=== PATIENT | female | born 1955 | race Caucasian/White ===

== ENCOUNTER 2017-04-18 12:46 | Inpatient (IN) | payer SELFPAY ==
[2017-04-18] MEDS ORDERED: Albuterol Sulfate 2.5 mg/0.5 ml Neb ONE ×2 (13:21)
[2017-04-18] MEDS ORDERED: Ipratropium Bromide 2.5 ml Neb ONE (13:21)
[2017-04-18 13:23] LABS: #Eosinphils 0.1 thou/uL (0.0-0.7); #Lymphocytes 1.2 thou/uL (1.20-3.40); #Monocytes 0.6 thou/uL (0.11-0.59); #Neutrophils 4.8 thou/uL (1.40-6.50); %Basophils 0.4 % (0.0-1.0); %Eosinophils 1.2 % (0.0-10.0); %Lymphocytes 18.5 % (21.0-51.0); Hematocrit 42.6 % (36.0-47.0); Red Blood Cell (RBC) Count 4.73 mill/uL (4.20-5.40); White Blood Cell (WBC) Count 6.7 thou/uL (4.8-10.8)
[2017-04-18 13:42] LABS: Lactic Acid - Sepsis 0.9 mmol/L (0.5-2.2)
[2017-04-18 13:46] LABS: ALT (SGPT) 24 U/L (8-55); AST (SGOT) 34 U/L (5-34); Alkaline Phosphatase 78 U/L (40-150); Anion Gap 18 mmol/L (10-20); BUN (Urea Nitrogen) 6 mg/dL (9.8-20.1); Bilirubin, Total 0.7 mg/dL (0.2-1.2); CK (CPK) 127 U/L (29-168); Calc. Creatinine Clearance 0 mL/min (70-130); Calcium 9.8 mg/dL (7.8-10.44); Carbon Dioxide 24 mmol/L (22-29); Chloride 92 mmol/L (98-107); Estimated GFR-MDRD 80; Globulin 3.2 g/dL (2.4-3.5); Protein, Total 7.8 g/dL (6.0-8.3)
[2017-04-18 13:51] LABS: Troponin I Less than 0.010 ng/mL (< 0.028)
[2017-04-18] MEDS ORDERED: Acetaminophen 500 MG TAB ONE ×2 (14:09)
--- NOTE | 2017-04-18 14:09 | CT ---
CT ABDOMEN AND PELVIS WITHOUT IV CONTRAST: HISTORY: Right flank pain. Shortness of breath and chest pain. The technologist also gives a history of lef t flank pain. TECHNIQUE: Multiple axial tomograms obtained through the abdomen and pelvis without IV enhancement. FINDINGS: The lung bases appear clear. The liver and spleen are unremarkable. Granulomatous calcifications are seen in the spleen. The pa ncreas appears unremarkable. The adrenal glands are normal. The kidneys show no evidence of hydronephrosis. No evidence of urinary calculus or obstruction. Th e urinary bladder is mildly distended and appears unremarkable. Small bowel loops appear or normal caliber. The appendix is not identified. There is stool in the right colon and transverse colon. The left colon is nondistended and not well evaluated. The aorta is of normal caliber. No evidence of adenopathy. Images through the pelvis show evidence of a hysterectomy. IMPRESSION: No evidence of acute process identified. POS: [facility]
[2017-04-18 14:17] LABS: Bilirubin Negative (Negative); Blood, Urine Negative (Negative); Glucose, Urine (Dipstick) Negative (Negative); Ketone, Urine Negative (Negative); Nitrite Negative (Negative); Protein, Urine (Dipstick) Negative (Neg-Trace)
--- NOTE | 2017-04-18 14:59 | RAD ---
PORTABLE CHEST ONE VIEW: 04/18/2017 at 2:35 p.m. HISTORY Dyspnea and chest pain. FINDINGS: Comparison is made with the exam of 06/16/2012. The heart size is normal. The lungs are well-expanded without chronic changes. No focal areas of c onsolidation, pneumothorax, or pleural effusions are seen. IMPRESSION: No radiographic evidence of acute cardiopulmonary process. POS: [facility]
[2017-04-18] MEDS ORDERED: Albuterol Sulfate 2.5 mg/3 ml Neb NEB PRN (18:08)
[2017-04-18] MEDS ORDERED: Azithromycin 250 MG TAB PO SCH (18:15)
[2017-04-18] MEDS ORDERED: Acetaminophen 500 MG TAB PO PRN (19:15)
[2017-04-18] MEDS ORDERED: Calcium Carbonate 500 MG ChewTAB PO PRN (20:15)
[2017-04-18] MEDS ORDERED: Acetaminophen 650 MG Suppository PR PRN (20:15)
[2017-04-18] MEDS ORDERED: Ondansetron ODT 4 MG TAB PO PRN (20:15)
[2017-04-18] MEDS ORDERED: Bisacodyl 5 MG TAB PO PRN (20:15)
[2017-04-18] MEDS ORDERED: Bisacodyl 10 MG SUPP PR PRN (20:15)
[2017-04-18] MEDS: Sodium Chloride 0.9% 1,000 ML IV SCH (20:38)
[2017-04-18] MEDS ORDERED: Enoxaparin Sodium 30 MG/0.3 ML SYRINGE SC SCH (20:45)
[2017-04-18 21:11] LABS: PTT 26.5 SEC (22.9-36.1); Prothrombin Time 13.3 SEC (12.0-14.7)
[2017-04-18 21:39] LABS: Osmolality, Urine 150 mOsm/kg (300-900)
[2017-04-18] MEDS ORDERED: Lorazepam 1 MG TAB PO SCH (22:30)
[2017-04-18] MEDS: Docusate 100 MG CAP PO SCH (22:35)
[2017-04-18] MEDS: Famotidine 20 MG TAB PO SCH (22:35)
[2017-04-18] MEDS: HYDROcodone/Acetaminophen 5/325 mg Tablet PO PRN (22:41)
[2017-04-18 22:50] LABS: Sodium, Urine 42 mmol/L (Not Available)
[2017-04-19 06:10] LABS: #Eosinphils 0.1 thou/uL (0.0-0.7); #Lymphocytes 1.2 thou/uL (1.20-3.40); #Monocytes 0.4 thou/uL (0.11-0.59); #Neutrophils 1.5 thou/uL (1.40-6.50); %Basophils 0.6 % (0.0-1.0); %Eosinophils 3.8 % (0.0-10.0); %Lymphocytes 37.1 % (21.0-51.0); %Monocytes 12.6 % (0.0-10.0); Hematocrit 35.5 % (36.0-47.0); Mean Platelet Volume 8.1 fL (7.4-10.4); Red Blood Cell (RBC) Count 3.93 mill/uL (4.20-5.40); White Blood Cell (WBC) Count 3.3 thou/uL (4.8-10.8)
[2017-04-19 06:40] LABS: ALT (SGPT) 18 U/L (8-55); AST (SGOT) 24 U/L (5-34); Alkaline Phosphatase 65 U/L (40-150); Anion Gap 12 mmol/L (10-20); BUN (Urea Nitrogen) 6 mg/dL (9.8-20.1); Bilirubin, Total 0.6 mg/dL (0.2-1.2); Calc. Creatinine Clearance 79 mL/min (70-130); Calcium 9.1 mg/dL (7.8-10.44); Carbon Dioxide 26 mmol/L (22-29); Chloride 98 mmol/L (98-107); Cholesterol 164 mg/dl (< 200 Desired); Estimated GFR-MDRD 90; Globulin 2.3 g/dL (2.4-3.5); LDL Cholesterol, Calculated 95 mg/dL; Protein, Total 6.2 g/dL (6.0-8.3)
--- NOTE | 2017-04-19 07:12 | HP-2 ---
DATE OF ADMISSION: 04/18/2017 CODE STATUS: FULL. PRIMARY CARE PHYSICIAN: RN in [place]. ATTENDING: Dr. Autumn Moreno. RESIDENT: Roland Franks MD. HISTORIAN: The patient. CHIEF COMPLAINT: Shortness of breath. HISTORY OF PRESENT ILLNESS: This is a 61-year-old white female with a past significant history of a nxiety and chronic obstructive pulmonary disease and atrial flutter that presented to the ED for a 2 -week chief complaint of shortness of breath. The patient states symptoms began after taking her no rmal Spiriva dose, which was then accompanied by some left-sided chest pain, some pain down her neck . She states her shortness of breath has gotten progressively worse, especially in the past 3 days. She said she then stopped her Spiriva due to tongue swelling at this time. Over the next 3 days, she was only able to tolerate avocados and yogurt p.o. The patient was seen in [facility] ER over the next few days, they gave her Benadryl and discontinued her home medications. The barbara cummings also complained of bilateral lower extremity edema, right lower extremity stiffness, pain and spasm and heart flutters, all starting yesterday evening. She was then evaluated at the [facility] in [place] and was likely evaluated and cleared for a DVT/PE. The patient told that her heart pain was likely secondary to reflux. The patient came to [facility] today for continuing shortness of breath, continuing pain. The patient states that she has not been able to take Spiriva, was give n a dose of albuterol in our ER for shortness of breath and it then made her tachycardic and it made her chest flutter as well. PAST MEDICAL HISTORY: COPD, anxiety, hypertension, atrial flutter. PAST SURGICAL HISTORY: x2, ex lap, and TVH with BSO. ALLERGIES: TRAMADOL, TORADOL, MORPHINE, and LEVAQUIN. LEVAQUIN caused her to pass out. TRAMADOL v ersus TORADOL, one gave headaches and one gave some stomach pain. MEDICATIONS: 1. Cartia XT 120 mg daily. 2. HCTZ 25 mg p.r.n. 3. Multaq 400 mg b.i.d. 4. Cyclobenzaprine 5 mg daily. 5. Lorazepam 1 mg daily. 6. Spiriva. FAMILY HISTORY: Her father had lung cancer and [place] x3. Her mother had breast cancer. Her brother h ad lung cancer and her aunt had lung cancer as well. SOCIAL HISTORY: She is one and half to two packs per day smoker for 40+ years. She has recently qu it over the past year or so. Alcohol use: Denies any, but does have a history of it. Drugs: No drugs. Occupation: She is disabled, has 4 children. Has no recent ill contacts. REVIEW OF SYSTEMS: General: Chills positive. No fevers. Fatigue positive. Respiratory: No coug h. No congestion. Positive for shortness of breath. Cardiovascular: Positive for palpitations an d edema. Gastrointestinal: Positive for nausea and constipation and abdominal pain, suprapubic. S kin: No rashes. No lesions. Musculoskeletal: Positive swelling in the lower extremities. Psychi atric: Positive for anxiety. All other review of systems not listed at this time, otherwise negati ve. PHYSICAL EXAMINATION: VITAL SIGNS: Blood pressure 128/78, pulse 106, respirations 22, temperature 97.9, pulse ox 96% on r oom air. GENERAL: The patient was alert and oriented x3. She seemed well-developed, seemed thin, was approp riately interactive. HEENT: Eyes: Conjunctivae are within normal limits. ENT: TMs were pearly callejas without bulging or erythema. Nasal mucosa was within normal limits. Oropharynx within normal limits. NECK: Supple. No lymphadenopathy, no thyromegaly, no bruits. CARDIOVASCULAR: Regular rate and rhythm. It was tachycardic. No murmurs were noted. No gallops. Radial pulses and pedal pulses were palpated bilaterally. RESPIRATIONS: Decreased lung sounds, lungs were crackly on auscultation. SKIN: Warm and dry. Per , there were telangiectasias noted. ABDOMEN: Soft, it was tender to palpation in the right upper quadrant. Bowel sounds were heard in all 4 quadrants bilaterally. No mass or distention noted. EXTREMITIES: No clubbing, no cyanosis, no edema, no pitting. MUSCULOSKELETAL: Structure is within normal limits. Tone was within normal limits. The patient di d have full range of motion. NEUROLOGIC: There is no focal deficits and sensation was within normal limits. PSYCHIATRIC: The patient did seem a little anxious, little shaky and little agitated. LABORATORY DATA: White blood cell count 6.7, MCV 90.1, hemoglobin 15.1, hematocrit 42.6, platelets were 283. Sodium was 130, potassium was 4.3, chloride was 92, carbon dioxide was 24, BUN was 6, cre atinine was 0.74, glucose was 107, calcium was 9.8, total protein was 7.8, albumin was 4.6, AST was 34, ALT is 24, alkaline phos was 78, total bilirubin is 0.7. Lactic acid is 0.5, CK-MB was 1.8. Tr oponins were less than 0.01. BNP is 21.5. UA was negative all across the board. EKG showed sinus tachy with PACs. Chest x-ray showed no radiographic evidence of acute cardiopulmonary process. IMAGING: CT abdomen and pelvis, no evidence of acute process identified. ASSESSMENT AND PLAN: 1. Dyspnea, likely possible to a new onset heart failure. We will repeat CBC in the morning. We w ill start oral steroids as it may be secondary to chronic obstructive pulmonary disease exacerbation . We will hold albuterol due to heart rate. We will get daily weights. We will check a heart echo and we will check a fasting lipid panel in the morning. 2. History of atrial flutter/atrial fibrillation. Will resume . We will check a heart echo a s above. We will start her on aspirin and check fasting lipid panel. 3. Hyponatremia. We will start her normal saline at a rate of 75. We will hold her HCTZ. We will check a urine sodium, urine osmol, and serum osmol. 4. Anxiety. We will hold her cyclobenzaprine, but we will continue her daily dose of lorazepam and likely recommend outpatient follow up for possible SSRI. 5. Constipation. We will start her on Dulcolax and Colace. 6. Right upper quadrant pain with concern for hepatitis. We will do a right upper quadrant ultraso und. We will do a chronic hepatitis panel and we will check coags. 7. Tongue swelling. We will give scheduled Benadryl IV q.6 hours and we will have a bedside swallo w study done and we will possibly have speech consulted in the morning.
[2017-04-19] MEDS: Docusate 100 MG CAP PO SCH ×2 (08:36→21:22)
[2017-04-19] MEDS: predniSONE 20 MG TAB PO SCH (08:36)
[2017-04-19] MEDS: Famotidine 20 MG TAB PO SCH ×2 (08:36→21:23)
[2017-04-19] MEDS: Dronedarone HCl 400 MG TAB PO SCH ×2 (08:36→16:37)
[2017-04-19] MEDS: Lorazepam 1 MG TAB PO SCH (08:37)
[2017-04-19] MEDS: Sodium Chloride 0.9% 1,000 ML IV SCH (08:38)
--- NOTE | 2017-04-19 08:51 | PDOC.FM ---
- Subjective Subjective: Pt reports doing better than yesterday. Says her breathing has improved. Still reports having pain in abdomen and around pelvis area. Pt denied any chest pain. Still reports having neck pain. Per nursing: pt required pain medicine overnight. - Objective MAR Reviewed: Yes Vital Signs & Weight: Vital Signs (12 hours) Temp Pulse Resp BP Pulse Ox 04/19/17 08:36 70 04/19/17 08:00 97.8 F 70 20 111/60 98 04/19/17 06:54 78 16 95 04/19/17 04:00 98.4 F 68 18 99/58 L 93 L 04/18/17 21:25 97.5 F L 87 20 139/76 94 L Weight Weight 55.338 kg I&O: 04/18/17 04/19/17 04/20/17 06:59 06:59 06:59 Intake Total 870 Output Total 1050 Balance -180 Result Diagrams: 04/19/17 05:58 04/19/17 05:58 Radiology Reviewed by me: Yes Radiology: CXR 04/18: no evidence acute cardopulm process Ct Ab/pelvis 04/18:no evidence acute process Abdomen U/S pending read <Roland Franks - Last Filed: 04/19/17 08:48> - Objective Vital Signs & Weight: Vital Signs (12 hours) Temp Pulse Resp BP Pulse Ox 04/19/17 08:36 70 04/19/17 08:00 97.8 F 70 20 111/60 98 04/19/17 06:54 78 16 95 04/19/17 04:00 98.4 F 68 18 99/58 L 93 L Weight Weight 55.338 kg I&O: 04/18/17 04/19/17 04/20/17 06:59 06:59 06:59 Intake Total 870 Output Total 1050 Balance -180 Result Diagrams: 04/19/17 05:58 04/19/17 05:58 <Sreedhar Gleason - Last Filed: 04/19/17 11:31> Phys Exam - Physical Examination HEENT: moist MMs, oral pharynx no lesions Neck: no nodes, supple ROm decreased due to pain Respiratory: no wheezing, no rales, no rhonchi, clear to auscultation bilateral Decreased air movement Cardiovascular: RRR, no significant murmur, no rub Gastrointestinal: soft, no distention, positive bowel sounds Tender to palpation in RUQ and suprapubic area. No rebound. Tender w/ pain pushing in Musculoskeletal: no edema, pulses present Neurological: non-focal, normal sensation Psychiatric: normal affect, A&O x 3 Skin: no rash, normal turgor <Roland Franks - Last Filed: 04/19/17 08:48> Dx/Plan (1) Suspected CHF (congestive heart failure) Code(s): Z03.89 - ENCNTR FOR OBS FOR OTH SUSPECTED DISEASES AND COND RULED OUT Status: Acute (2) COPD (chronic obstructive pulmonary disease) Status: Acute (3) Hx of atrial flutter Code(s): Z86.79 - PERSONAL HISTORY OF OTHER DISEASES OF THE CIRCULATORY SYSTEM Status: Acute (4) Hyponatremia Code(s): E87.1 - HYPO-OSMOLALITY AND HYPONATREMIA Status: Acute (5) Anxiety Code(s): F41.9 - ANXIETY DISORDER, UNSPECIFIED Status: Acute (6) Constipation Code(s): K59.00 - CONSTIPATION, UNSPECIFIED Status: Acute (7) Abdominal pain Code(s): R10.9 - UNSPECIFIED ABDOMINAL PAIN Status: Acute (8) Hypokalemia Code(s): E87.6 - HYPOKALEMIA Status: Acute - Plan Plan: Suspected CHF -Echo pending -Started on aspirin -Awaiting records from outside hoop punch and coiler operator Hx of A. Flutter/A. fib -Started on home meds -Tele monitoring -Continue to monitor HR. Normal overnight COPD -Stated hx of COPD, possible excacerbation. Infection unlikely -Prednisone burst -Await records from outside hay chopper -Duonebs restarted as HR is stable. -Do not give spiriva as potenially caused angioedema Hyponatremia -Improved to 133 -NS@75 mls/hr -continue to monitor with BMP Hypokalemia -3.3 today. will replace orally Anxiety -Continue home lorazepam dose -Consider SSRI outpatient Abdominal pain -CT ab/pelvis: no acute abnormality -Abdomen U/S pending -Hep C Ab positive. PCR RNA pending -Possibly consult GI, extensive Abdomen Surgery hx, possibly consult General Surgery -[place] for pain control at this time Constipation -Duclolax and colace <Roland Franks - Last Filed: 04/19/17 08:48> Attending Addendum - Attending Addendum I personally evaluated the patient and discussed the management with Dr. Franks I agree with the History, Examination, Assessment and Plan documented above with any addition or exceptions noted below. Consult gen surg. Await echo results. Duoneds and steroids for COPD. Start aspirin. Continue multaq and diltiazem. <Sreedhar Gleason - Last Filed: 04/19/17 11:31>
[2017-04-19] MEDS ORDERED: Potassium Chloride 20 MEQ TAB PO SCH (09:00)
--- NOTE | 2017-04-19 09:29 | ULT ---
GALLBLADDER ULTRASOUND: HISTORY: Right upper quadrant pain. FINDINGS: The liver demonstrates homogeneous echotexture without focal mass or intrahepatic ductal dilatation. No gallstones, gallbladder wall thickening, or pericholecystic fluid is seen. The gallbladder is distended. The common duct measures 8 mm in diameter. The pancreas is partially visualized due to overlying bowel gas. The visualized portions are unremarkable. No right hydronephrosis is seen. T here is a 1 cm hyperechoic focus in the right-mid renal cortex. This is stable in size since the CT scan of 04/22/11. On the recent noncontrast study of 04/18/17, there is presence of fat in this lesi on. This lesion is consistent with an angiomyolipoma. No free fluid is seen in the Morison's pouch . IMPRESSION: 1. Distended gallbladder. 2. Dilated common bile duct. 3. A 1 cm right renal angiomyolipoma. POS: [facility]
[2017-04-19] MEDS: Ondansetron HCl/PF 4 MG/2 ML Vial IVP PRN ×2 (09:36→16:37)
[2017-04-19 10:48] LABS: Osmolality, Serum 270 mOsm/kg (280-295)
[2017-04-19] MEDS: HYDROcodone/Acetaminophen 5/325 mg Tablet PO PRN ×2 (14:38→21:26)
[2017-04-19 15:10] LABS: Amphetamine Not Detected (NotDetected); Methadone Not Detected (NotDetected); Methamphetamine Not Detected (NotDetected)
[2017-04-19] MEDS ORDERED: Lorazepam 2 MG/ML VIAL SLOW IVP PRN (17:53)
[2017-04-19] MEDS: Lorazepam 2 MG/ML VIAL SLOW IVP PRN (18:07)
[2017-04-19] MEDS ORDERED: Dronedarone HCl 400 MG TAB PO SCH (21:30)
[2017-04-20] MEDS: Sodium Chloride 0.9% 1,000 ML IV SCH ×2 (02:23→17:18)
[2017-04-20] MEDS: Lorazepam 2 MG/ML VIAL SLOW IVP PRN ×3 (05:10→22:29)
[2017-04-20 05:17] LABS: Hepatitis A Total ABS Positive (Negative)
[2017-04-20 06:24] LABS: #Lymphocytes 0.9 thou/uL (1.20-3.40); #Monocytes 0.4 thou/uL (0.11-0.59); #Neutrophils 3.6 thou/uL (1.40-6.50); %Basophils 0.7 % (0.0-1.0); %Lymphocytes 17.5 % (21.0-51.0); %Monocytes 8.8 % (0.0-10.0); Hematocrit 38.7 % (36.0-47.0); Mean Platelet Volume 8.1 fL (7.4-10.4); Red Blood Cell (RBC) Count 4.14 mill/uL (4.20-5.40)
[2017-04-20 06:31] LABS: ALT (SGPT) 17 U/L (8-55); AST (SGOT) 20 U/L (5-34); Alkaline Phosphatase 60 U/L (40-150); Anion Gap 14 mmol/L (10-20); BUN (Urea Nitrogen) 7 mg/dL (9.8-20.1); Bilirubin, Total 0.4 mg/dL (0.2-1.2); Calc. Creatinine Clearance 73 mL/min (70-130); Calcium 9.4 mg/dL (7.8-10.44); Carbon Dioxide 21 mmol/L (22-29); Chloride 104 mmol/L (98-107); Estimated GFR-MDRD 83; Globulin 2.4 g/dL (2.4-3.5); Protein, Total 6.2 g/dL (6.0-8.3)
[2017-04-20] MEDS: Dronedarone HCl 400 MG TAB PO SCH ×2 (09:00→20:59)
[2017-04-20] MEDS: Famotidine 20 MG TAB PO SCH ×2 (09:00→20:59)
[2017-04-20] MEDS: Docusate 100 MG CAP PO SCH ×2 (09:00→20:59)
[2017-04-20] MEDS: Lorazepam 1 MG TAB PO SCH (10:17)
--- NOTE | 2017-04-20 13:49 | PDOC.FM ---
- Objective Vital Signs & Weight: Vital Signs (12 hours) Temp Pulse Resp BP Pulse Ox 04/20/17 10:00 98.0 F 80 18 120/65 98 04/20/17 07:44 98.4 F 72 18 04/20/17 04:46 72 18 99 04/20/17 04:00 97.1 F L 88 20 119/75 95 Weight Weight 53.025 kg I&O: 04/19/17 04/20/17 04/21/17 06:59 06:59 06:59 Intake Total 870 3719 Output Total 1050 1850 Balance -180 1869 Result Diagrams: 04/20/17 05:55 04/20/17 05:55 <Roland Franks - Last Filed: 04/20/17 13:46> - Objective Vital Signs & Weight: Vital Signs (12 hours) Temp Pulse Resp BP BP Pulse Ox 04/21/17 10:20 97.8 F 71 18 93 L 04/21/17 08:56 71 147/74 H 04/21/17 08:42 97.8 F 71 18 147/74 H 93 L 04/21/17 04:00 98.7 F 80 18 110/56 L 95 Weight Weight 53.025 kg I&O: 04/20/17 04/21/17 04/22/17 06:59 06:59 06:59 Intake Total 3719 1300 580 Output Total 1537 819 9314 Balance 1869 850 -1645 Result Diagrams: 04/21/17 04:14 04/21/17 04:14 <Sreedhar Gleason - Last Filed: 04/21/17 11:50> Dx/Plan (1) Suspected CHF (congestive heart failure) Code(s): Z03.89 - ENCNTR FOR OBS FOR OTH SUSPECTED DISEASES AND COND RULED OUT Status: Acute (2) COPD (chronic obstructive pulmonary disease) Status: Acute (3) Hx of atrial flutter Code(s): Z86.79 - PERSONAL HISTORY OF OTHER DISEASES OF THE CIRCULATORY SYSTEM Status: Acute (4) Hyponatremia Code(s): E87.1 - HYPO-OSMOLALITY AND HYPONATREMIA Status: Acute (5) Anxiety Code(s): F41.9 - ANXIETY DISORDER, UNSPECIFIED Status: Acute (6) Constipation Code(s): K59.00 - CONSTIPATION, UNSPECIFIED Status: Acute (7) Abdominal pain Code(s): R10.9 - UNSPECIFIED ABDOMINAL PAIN Status: Acute (8) Hypokalemia Code(s): E87.6 - HYPOKALEMIA Status: Resolved - Plan Plan: Suspected CHF -Echo shows LV function mildly depressed, EF 45-50%, E/A flow reversed noted, Diastolic Dysfunction, Mild Mitral Regurg, Mild tricuspid Regurg -Started on aspirin -Awaiting records from outside water manager -Cardiology Consulted- Dr. Nesbitt- will follow recs Hx of A. Flutter/A. fib -Started on home meds -Tele monitoring -Continue to monitor HR. Staying stable COPD -Stated hx of COPD, possible excacerbation. Infection unlikely -Prednisone burst -Await records from outside fish boning machine feeder -Duonebs restarted as HR is stable. -Do not give spiriva as potenially caused angioedema Hyponatremia -Improved to 135 -NS@75 mls/hr -continue to monitor with CMP Hypokalemia -resolved today -3.9 today. Monitor with CMP Anxiety -Continue home lorazepam dose -Lorazepam PRN noted -Consider SSRI outpatient Abdominal pain -CT ab/pelvis: no acute abnormality -Abdomen U/S: distended galbladder, dilated common bile duct -Hep C Ab positive. PCR RNA pending- Has confirmed hx of Hep C diagnosis -[place] Scan pending- Will consult General Surgery depending on results -GI-Dr. Mo, consulted per Recs of Speech- Suspected Esophageal dysmotility causing swallowing trouble and possible pain -[place] for pain control at this time Constipation -Duclolax and colace <Roland Franks - Last Filed: 04/20/17 13:46> Attending Addendum - Attending Addendum I personally evaluated the patient and discussed the management with Dr. Hernandez I agree with the History, Examination, Assessment and Plan documented above with any addition or exceptions noted below. Multiple c/o's, anxiety, dysphagia. Card and GI evals underway. HIDA for abnormal GB on US. <Sreedhar Gleason - Last Filed: 04/21/17 11:50>
--- NOTE | 2017-04-20 15:52 | NM ---
HEPATOBILIARY SCAN: 04/20/17 HISTORY: Right upper quadrant pain, distended gallbladder on ultrasound of previous day. RADIOPHARMACEUTICAL: 4.5 millicuries technetium 99m-Mebrofenin intravenously. PRETREATMENT: 1.1 mcg CCK-8 slowly infused over 30 minutes, half an hour prior to the examination. FINDINGS: There is good tracer extraction of the liver with prompt excretion into the biliary tract and normal filling of the gallbladder. There is no activity in the small bowel loops on the one hour image. 1. 1 mcg of CCK-8 infused intravenously over 30 minutes to evaluate gallbladder contractility. The calc ulated gallbladder ejection fraction measures 86%. There is tracer excretion into the small bowel lo oks following CCK-8 administration. IMPRESSION: Normal exam. POS: [facility]
[2017-04-20] MEDS: predniSONE 20 MG TAB PO SCH (17:17)
[2017-04-20] MEDS: HYDROcodone/Acetaminophen 5/325 mg Tablet PO PRN ×2 (17:55→22:22)
[2017-04-20] MEDS ORDERED: Loratadine 10 MG TAB PO SCH (18:45)
--- NOTE | 2017-04-20 23:19 | CON ---
CARDIOLOGY CONSULTATION NOTE DATE OF CONSULTATION: 04/20/2017 INDICATION FOR CONSULTATION: A 61-year-old female with shortness of breath, chest discomfort, edema , palpitations and abnormal echocardiogram. HISTORY OF PRESENT ILLNESS: This lady is a 61-year-old female with shortness of breath and anxiety. She complains of having tachycardia. She had some history of atrial fibrillation or flutter in e past, sometime back in 2013, she cannot remember and she at some point in time apparently she had been placed on Multaq. She has been followed on a routine basis apparently by [facility]. I d o not know if she has had any significant workup. She said she was in the hospital there for about 3 days, but does not recall whether she had a cardiac catheterization or other echocardiograms. Sin ce being here, she did have an echocardiogram, which showed an ejection fraction of 45% to 50% with diastolic dysfunction with mild mitral and tricuspid valve regurgitation. She has had no previous h istory of chest pain in the past. At this time, she complains mainly of back pain as well as with s ome discomfort in the chest with radiation. The pain occurs after she uses her inhalers or nebulize r treatments. She does have a history of chronic obstructive pulmonary disease and did smoke heavil y in the past, was stopped about 10 years ago, previously she smoked about 2 packs a day for about 4 0 years and does have significant chronic obstructive pulmonary disease. At this time, her EKG show s a normal sinus rhythm with no acute changes. Cardiac enzymes are negative. Her echocardiogram do es show mild decrease in left ventricular systolic function as well as diastolic dysfunction. PAST MEDICAL HISTORY: Significant for chronic obstructive pulmonary disease, anxiety, depression, a trial flutter, hypertension, vaginal hysterectomy with bilateral salpingo-oophorectomy. She had C-s ections. She has had exploratory laparotomy. SOCIAL HISTORY: She has children who are alive and well. She smoked in the past, but stopped about she says several years ago. Some of the notes states that she has only stopped about a year ago. She apparently is disabled due to her lung disease. FAMILY HISTORY: Positive for coronary artery disease in her father who had a myocardial infarction as well as family members with breast cancer and lung cancer. ALLERGIES: She is allergic to LEVAQUIN, MORPHINE, TORADOL and TRAMADOL. MEDICATIONS: At this time include aspirin 81 mg a day, diltiazem 120 mg q. day, Colace 100 mg b.i.d ., Multaq 400 mg b.i.d. and Pepcid 20 mg b.i.d. She is also on lorazepam, Zofran as needed and pred nisone 40 mg q.a.m. REVIEW OF SYSTEMS: She complains of shortness of breath, some lower extremity edema, palpitations, nausea, constipation and anxiety as well as back pain. PHYSICAL EXAMINATION: GENERAL: Reveals a very anxious middle-aged female who appears older than her stated age. VITAL SIGNS: Her blood pressure is 120/65. Heart rate is 80 and regular. She is afebrile. Respir atory rate is 18. HEENT: Shows head to be normocephalic and atraumatic. I did not hear any bruits. There is no JVD. LUNGS: Her chest has decreased breath sounds throughout; however, there were no rales, rhonchi or w heezing noted. CARDIOVASCULAR: Heart sounds are somewhat distant, but did not hear any significant murmurs, heaves , thrills, bruits or rubs. She has a regular rhythm. ABDOMEN: Soft and nontender with positive bowel sounds. EXTREMITIES: Showed no clubbing, cyanosis or edema. Pedal pulses are present. NEUROLOGIC: The patient is anxious. She is a very poor historian due to her anxiety and also she g oes off on tangents when you try to speak to her about the specifics. IMAGING DATA: EKG shows normal sinus rhythm. LABORATORY DATA: Creatinine is 0.72 and potassium is 3.9. Hemoglobin 13.2. Her BNP was 21 and LDH was 95. ASSESSMENT AND PLAN: 1. Abnormal electrocardiogram with mild decrease in left ventricular systolic function. We will ne ed to determine whether or not she has had any recent echocardiogram, so we can at least compare wit h to see if this is a new change for her. We will try to get the records from [facility]. 2. History of back pain and chest pain, which may be associated with her lung disease. It is uncer tain since she does have the pain with inspiration. I do not see any EKG changes and enzymes are ne gative as well as the BNP being extremely low. There is no indication she has heart failure at this time. 3. Hyponatremia and hyperchloremia. This is being treated by [facility] and this will be corrected. 4. Anxiety and shortness of breath, uncertain of the etiology, but she certainly is anxious, but is on medications for this. 5. Chronic obstructive pulmonary disease. This seems to be rather significant, but she is already on steroids. At this time, I would await the records from [facility] before proceeding with ot her further evaluation such as stress testing or any further invasive procedures and certainly if th e echocardiogram shows ejection fraction of 45% to 50%, we would repeat the echo in the next few mon ths, but she is not taking any LISSETH inhibitors or beta blockers. She is probably unable to tolerate the beta-blockers, so she is not on any ARBs or any LISSETH inhibitors. I am uncertain as to whether or not she truly did have atrial fibrillation or flutter. This is unclear and these records will need to be obtained from [facility] to see exactly why she was placed on this and whether or not sh renzo really needs to be on this medication or whether or not she may need even to undergo an ablation i f she has atrial flutter, but I do not see any indication of any atrial fibrillation or flutter or a ny EKGs since she has been here. Her renal function appears to be stable and we may try a low dose of LISSETH inhibitor or ARBs in this lady. Her blood pressure actually is stable, but she will probably only tolerate a low dose.
--- NOTE | 2017-04-21 01:59 | CON ---
DATE OF CONSULTATION: 04/20/2017 HISTORY OF PRESENT ILLNESS: The patient is a 61-year-old female, who reports a several we ek to several month history of difficulty swallowing. She reports when she swallows particularly ic e cream or milk products that she will notice some difficulty in her upper throat, getting these bartolo n. She also reports meats and breads are also difficult. She denies any weight loss from this. Micheline muller has not had previous endoscopic evaluation. She denies any reflux. Denies any hematemesis, no me kurt, hematochezia. She also reports some abdominal pain, which is somewhat diffuse without allevia ting or precipitating factors. She has undergone a fairly extensive evaluation including CT abdomen and pelvis, abdominal ultrasound and HIDA scan, all of which were normal. She was receiving [place] for pain treatment. PAST MEDICAL HISTORY: Includes COPD, anxiety, hypertension, atrial fibrillation, history of hepatit is C. PAST SURGICAL HISTORY: Includes , exploratory laparotomy, hysterectomy, herniorrhaphy. ALLERGIES: Include TORADOL, LEVAQUIN, MORPHINE, PENICILLIN, and TRAMADOL. HOME MEDICATIONS: Include Spiriva 2 inhalations daily, Atrovent 1 daily, lorazepam 1 p.o. daily p.r .n., Flexeril 5 mg p.o. daily every day p.r.n., hydrochlorothiazide once daily, diltiazem 1 p.o. pauline ly, and Multaq 400 mg p.o. b.i.d. SOCIAL HISTORY: She is a former smoker. Alcohol use: None. FAMILY HISTORY: Negative for GI or liver disease. REVIEW OF SYSTEMS: Constitutional: No fever or chills, no weight loss. Eyes: No blurred vision o r double vision. ENT: No sore throat or earaches. Cardiovascular: No chest pain or palpitation. Pulmonary: Positive for shortness of breath, positive cough. Gastrointestinal: See above. Genit ourinary: No hematuria or dysuria. Musculoskeletal: No joint pain or muscle weakness. Skin: No rashes. Neurologic: No numbness or seizure activity. PHYSICAL EXAMINATION: VITAL SIGNS: Temperature 98.2, pulse 76, respiratory rate 21, blood pressure 147/74. HEENT: Unremarkable. NECK: Supple. CHEST: Clear. CARDIOVASCULAR: Regular rate and rhythm without murmurs or gallops. ABDOMEN: Soft. Diffusely tender, but somewhat exaggerated on palpation. RECTAL: Deferred. EXTREMITIES: Normal. NEUROLOGIC: Nonfocal. LABORATORY DATA: Shows a white blood cell count of 5.0, hemoglobin 13, hematocrit 38.7. PT is 13 w ith an INR of 1.0. Chemistries show sodium 133, potassium 3.3. Urinalysis is negative. Toxicology was positive for opiates and benzodiazepines. Serology, HIV is nonreactive. Hepatitis C antibody is positive. ASSESSMENT: 1. Dysphagia. 2. Chronic obstructive pulmonary disease. 3. History of atrial flutter. 4. Hyponatremia. 5. Abdominal pain - no etiology, pretty thorough workup. Therefore, I suspect this is functional. 6. Hepatitis C antibody positive. RECOMMENDATIONS: 1. EGD once cleared by Cardiology. 2. Avoid narcotics for abdominal pain.
[2017-04-21 05:18] LABS: #Lymphocytes 0.4 thou/uL (1.20-3.40); #Monocytes 0.2 thou/uL (0.11-0.59); #Neutrophils 3.8 thou/uL (1.40-6.50); %Eosinophils 1.1 % (0.0-10.0); %Lymphocytes 8.7 % (21.0-51.0); %Monocytes 4.3 % (0.0-10.0); Hematocrit 36.2 % (36.0-47.0); Mean Platelet Volume 8.5 fL (7.4-10.4); Red Blood Cell (RBC) Count 3.85 mill/uL (4.20-5.40); White Blood Cell (WBC) Count 4.4 thou/uL (4.8-10.8)
[2017-04-21 06:04] LABS: ALT (SGPT) 17 U/L (8-55); AST (SGOT) 18 U/L (5-34); Alkaline Phosphatase 51 U/L (40-150); Anion Gap 14 mmol/L (10-20); BUN (Urea Nitrogen) 9 mg/dL (9.8-20.1); Bilirubin, Total 0.2 mg/dL (0.2-1.2); Calc. Creatinine Clearance 72 mL/min (70-130); Calcium 8.9 mg/dL (7.8-10.44); Carbon Dioxide 25 mmol/L (22-29); Chloride 103 mmol/L (98-107); Estimated GFR-MDRD 86; Globulin 2.2 g/dL (2.4-3.5); Protein, Total 5.9 g/dL (6.0-8.3)
[2017-04-21] MEDS: Sodium Chloride 0.9% 1,000 ML IV SCH ×2 (07:55→22:56)
--- NOTE | 2017-04-21 08:30 | PDOC.FM ---
- Subjective Subjective: Pt reports doing a little better this morning. Still having trouble swallowing and very anxious about stuff getting stuck in her throat. Still reports having abdominal pain. Denies any chest pain at this time. Says breathing was okay overnight. No other problems or concerns at this time. - Objective MAR Reviewed: Yes Vital Signs & Weight: Vital Signs (12 hours) Temp Pulse Resp BP Pulse Ox 04/21/17 04:00 98.7 F 80 18 110/56 L 95 04/20/17 22:31 92 20 118/63 95 04/20/17 21:55 98.1 F 87 20 120/74 93 L 04/20/17 21:16 111 H 22 H 87 L Weight Weight 53.025 kg I&O: 04/20/17 04/21/17 04/22/17 06:59 06:59 06:59 Intake Total 3712 1300 580 Output Total 3870 248 8904 Balance 186 850 -6675 Result Diagrams: 04/21/17 04:14 04/21/17 04:14 EKG Reviewed by me: Yes Radiology Reviewed by me: Yes Radiology: Hida Scan: Normal exam <Roland Franks - Last Filed: 04/21/17 08:28> - Objective Vital Signs & Weight: Vital Signs (12 hours) Temp Pulse Resp BP BP Pulse Ox 04/21/17 10:20 97.8 F 71 18 93 L 04/21/17 08:56 71 147/74 H 04/21/17 08:42 97.8 F 71 18 147/74 H 93 L 04/21/17 04:00 98.7 F 80 18 110/56 L 95 Weight Weight 53.025 kg I&O: 04/20/17 04/21/17 04/22/17 06:59 06:59 06:59 Intake Total 8388 4602 580 Output Total 1282 296 7402 Balance 1869 850 -9978 Result Diagrams: 04/21/17 04:14 04/21/17 04:14 <Sreedhar Gleason - Last Filed: 04/21/17 11:45> Phys Exam - Physical Examination HEENT: moist MMs, oral pharynx no lesions Neck: no nodes, no JVD, supple, full ROM Wheezing noted on expiration Cardiovascular: RRR, no significant murmur, no rub Gastrointestinal: soft, no distention, positive bowel sounds Tender to palpation in upper quadrants Musculoskeletal: no edema, pulses present Neurological: non-focal, normal sensation Lymphatic: no nodes Psychiatric: normal affect, A&O x 3 Skin: no rash, cap refill <2 seconds <Roland Franks - Last Filed: 04/21/17 08:28> Dx/Plan (1) Suspected CHF (congestive heart failure) Code(s): Z03.89 - ENCNTR FOR OBS FOR OTH SUSPECTED DISEASES AND COND RULED OUT Status: Resolved (2) COPD (chronic obstructive pulmonary disease) Status: Acute (3) Hx of atrial flutter Code(s): Z86.79 - PERSONAL HISTORY OF OTHER DISEASES OF THE CIRCULATORY SYSTEM Status: Acute (4) Hyponatremia Code(s): E87.1 - HYPO-OSMOLALITY AND HYPONATREMIA Status: Resolved (5) Anxiety Code(s): F41.9 - ANXIETY DISORDER, UNSPECIFIED Status: Acute (6) Constipation Code(s): K59.00 - CONSTIPATION, UNSPECIFIED Status: Acute (7) Abdominal pain Code(s): R10.9 - UNSPECIFIED ABDOMINAL PAIN Status: Acute (8) Hypokalemia Code(s): E87.6 - HYPOKALEMIA Status: Resolved - Plan Plan: Suspected CHF -Echo shows LV function mildly depressed, EF 45-50%, E/A flow reversed noted, Diastolic Dysfunction, Mild Mitral Regurg, Mild tricuspid Regurg -Started on aspirin, -Awaiting records from outside speed reading teacher -Cardiology Consulted- Dr. Nesbitt- will follow recs -No indication of Heart Failure at this time. -started on low dose Losartan Hx of A. Flutter/A. fib -Started on home meds -Tele monitoring -Continue to monitor HR. Staying stable -Will start on statin COPD -Stated hx of COPD, possible excacerbation. Infection unlikely -Prednisone burst -Await records from outside aadc plans staff officer -Duonebs restarted as HR is stable. -Do not give spiriva as potenially caused angioedema Hyponatremia-resolved -Improved to 138 -NS@75 mls/hr -continue to monitor with CMP Hypokalemia -resolved today -4.2 today. Monitor with CMP Anxiety -Continue home lorazepam dose -Lorazepam PRN noted -Consider SSRI outpatient Abdominal pain -CT ab/pelvis: no acute abnormality -Abdomen U/S: distended galbladder, dilated common bile duct -Hep C Ab positive. PCR RNA pending- Has confirmed hx of Hep C diagnosis -Hida Scan- normal exam, no need for surgery at this time -GI-Dr. Mo, consulted per Recs of Speech- Suspected Esophageal dysmotility causing swallowing trouble and possible pain -EGD recommended, Will get when okay with Cards -Possible Barium swallow per Speech. -[place] for pain control at this time Constipation -Duclolax and colace <Roland Franks - Last Filed: 04/21/17 08:28> Attending Addendum - Attending Addendum I personally evaluated the patient and discussed the management with Dr. Franks. I agree with the History, Examination, Assessment and Plan documented above with any addition or exceptions noted below. Anxiety, likely will benefit from CBT outpatient for her anxiety, as well as start an SSRI. Awaiting records from patient's speed reading teacher. GI eval for dysphagia ongoing. Awaiting UGI and/or EGD once cleared by cardiology. GB w/u negative. <Sreedhar Gleason - Last Filed: 04/21/17 11:45>
[2017-04-21] MEDS: HYDROcodone/Acetaminophen 5/325 mg Tablet PO PRN ×3 (08:54→20:15)
[2017-04-21] MEDS: predniSONE 20 MG TAB PO SCH (08:55)
[2017-04-21] MEDS: Docusate 100 MG CAP PO SCH ×2 (08:55→20:11)
[2017-04-21] MEDS: Losartan Potassium 25 MG TAB PO SCH (08:56)
[2017-04-21] MEDS: Lorazepam 1 MG TAB PO SCH (08:56)
[2017-04-21] MEDS: Famotidine 20 MG TAB PO SCH ×2 (08:56→20:12)
[2017-04-21] MEDS: Loratadine 10 MG TAB PO SCH (08:56)
[2017-04-21] MEDS: Dronedarone HCl 400 MG TAB PO SCH ×2 (08:57→20:12)
[2017-04-21 11:20] LABS: Hep C PCR-Quant 726000 IU/mL (.)
--- NOTE | 2017-04-21 13:22 | PRG ---
DATE OF SERVICE: 04/21/2017 SUBJECTIVE: The patient has had no change in her dysphagia. OBJECTIVE: VITAL SIGNS: Temperature 97.7, pulse 95, respiratory rate 18, and blood pressure 132/64. CHEST: Clear. CARDIOVASCULAR: Regular rate and rhythm. ABDOMEN: Benign. LABORATORY DATA: Shows a white blood cell count 4.4, hemoglobin 12.1, and hematocrit 36.2. Revenue Field Agent conrad are essentially normal except for glucose 128. Total protein 59, globulin of 2.2. In discussi ng with Dr. Nesbitt, the patient is cleared for upper endoscopy. ASSESSMENT: 1. Chronic obstructive pulmonary disease. 2. Dysphagia. 3. Abdominal pain -- suspect functional. RECOMMENDATIONS: Esophagogastroduodenoscopy with possible dilatation in a.m.
--- NOTE | 2017-04-21 14:28 | PDOC.CTH ---
<Debora Francisco - Last Filed: 04/21/17 14:39> Cardiology Progress Note - Subjective The pt was seen and examined. No overnight events. No cardiac complaints. Still waiting for the medical record from [place] - Objective Vital Signs Temp Pulse Resp BP BP Pulse Ox 04/21/17 12:30 97.7 F 95 18 132/64 94 L 04/21/17 11:47 89 20 94 L 04/21/17 10:20 97.8 F 71 18 93 L 04/21/17 08:56 71 147/74 H 04/21/17 08:42 97.8 F 71 18 147/74 H 93 L 04/21/17 04:00 98.7 F 80 18 110/56 L 95 Weight 116 lb 14.4 oz 04/20/17 04/21/17 04/22/17 06:59 06:59 06:59 Intake Total 3719 1300 580 Output Total 7532 658 4854 Balance 1869 850 -1645 - Physical Examination General/Neuro: alert & oriented x3 Neck: no JVD present Lungs: CTA (diminished at bases), other: Heart: RRR Abdomen: other: Extremities: other: (No edema) - Telemetry Telemetry Rhythm: SR 90s - Labs Result Diagrams: 04/21/17 04:14 04/21/17 04:14 Troponin/CKMB CK-MB (CK-2) 1.8 ng/mL (0-6.6) 04/18/17 13:11 Troponin I Less than 0.010 ng/mL (< 0.028) 04/18/17 13:11 - Assessment/Plan 1. Combined HF - 2D Echo on 04/19 showed EF 45-50% with grade I diastolic dysfunction; stable with current medication 2. Hx of atrial flutter - Remain SR on tele; waiting for the record from [facility] 3. COPD - RA and on O2 supplement during sleep; On PO steroid; managed by PCP 4. Dysphagia - suspected Esophageal dysmotility causing swallowing trouble and possible pain; Possible EGD 5.Hyponatoremia - Resolved; managed by PCP 6. Hypokalemia - resolved; managed by PCP 7. Anxiety - stable with current medication Review of Systems - Review of Systems Constitutional: reports: no symptoms reported EENTM: reports: no symptoms reported Respiratory: reports: no symptoms reported Cardiac (ROS): reports: no symptoms reported ABD/GI: reports: no symptoms reported : reports: no symptoms reported Musculoskeletal: reports: no symptoms reported <Lukas Nesbitt - Last Filed: 04/21/17 16:34> Cardiology Progress Note - Objective Vital Signs Temp Pulse Resp BP BP Pulse Ox 04/21/17 15:44 98.3 F 86 18 130/70 94 L 04/21/17 12:30 97.7 F 95 18 132/64 94 L 04/21/17 11:47 89 20 94 L 04/21/17 10:20 97.8 F 71 18 93 L 04/21/17 08:56 71 147/74 H 04/21/17 08:42 97.8 F 71 18 147/74 H 93 L Weight 116 lb 14.4 oz 04/20/17 04/21/17 04/22/17 06:59 06:59 06:59 Intake Total 3719 1300 580 Output Total 5089 309 7807 Balance 1860 850 -1765 - Labs Result Diagrams: 04/21/17 04:14 04/21/17 04:14 Troponin/CKMB CK-MB (CK-2) 1.8 ng/mL (0-6.6) 04/18/17 13:11 Troponin I Less than 0.010 ng/mL (< 0.028) 04/18/17 13:11 - Assessment/Plan Pt. was seen and evaluated by me. No cardiac complaints this afternoon. I agree with the A/P by the BAILER TENDERS SUPERVISOR.She should be a reasonable candidate to proceed with EGD and possible esophageal dilatation.
[2017-04-21] MEDS: Lorazepam 2 MG/ML VIAL SLOW IVP PRN ×2 (14:55→21:35)
[2017-04-21] MEDS: Cyclobenzaprine 10 MG TAB PO PRN (22:53)
[2017-04-22 06:36] LABS: #Monocytes 0.5 thou/uL (0.11-0.59); #Neutrophils 3.4 thou/uL (1.40-6.50); %Basophils 0.2 % (0.0-1.0); %Eosinophils 0.4 % (0.0-10.0); %Lymphocytes 19.6 % (21.0-51.0); %Monocytes 9.4 % (0.0-10.0); Hematocrit 35.3 % (36.0-47.0); Red Blood Cell (RBC) Count 3.76 mill/uL (4.20-5.40); White Blood Cell (WBC) Count 4.9 thou/uL (4.8-10.8)
[2017-04-22 06:52] LABS: ALT (SGPT) 15 U/L (8-55); AST (SGOT) 18 U/L (5-34); Alkaline Phosphatase 51 U/L (40-150); Anion Gap 13 mmol/L (10-20); BUN (Urea Nitrogen) 9 mg/dL (9.8-20.1); Bilirubin, Total 0.2 mg/dL (0.2-1.2); Calc. Creatinine Clearance 69 mL/min (70-130); Calcium 8.7 mg/dL (7.8-10.44); Carbon Dioxide 28 mmol/L (22-29); Chloride 105 mmol/L (98-107); Estimated GFR-MDRD 82; Globulin 2.4 g/dL (2.4-3.5)
--- NOTE | 2017-04-22 08:41 | PDOC.FM ---
- Subjective Subjective: Pt doing well this morning. Is resting in the room. Reports mouth being dry but knows has to be NPO for EGD. Pt also states neck pain better after getting the flexyrl. Reports abdominal pain improving. Denies any n/v/d/c. Denies any chest pain or fever or chills. Denies any other complaints at this time. - Objective Vital Signs & Weight: Vital Signs (12 hours) Temp Pulse Resp BP Pulse Ox 04/22/17 04:00 98.2 F 73 18 124/59 L 92 L 04/21/17 22:54 104 H 20 148/74 H 95 04/21/17 21:04 90 16 96 Weight Weight 53.025 kg I&O: 04/21/17 04/22/17 04/23/17 06:59 06:59 06:59 Intake Total 1300 2920 900 Output Total 450 5375 Balance 850 -2455 900 Result Diagrams: 04/22/17 06:08 04/22/17 06:07 Radiology Reviewed by me: Yes (All past exams noted. No new exams to report) <Roland Franks - Last Filed: 04/22/17 08:42> - Objective Vital Signs & Weight: Vital Signs (12 hours) Temp Pulse Resp BP Pulse Ox 04/22/17 08:00 98.3 F 79 22 H 137/83 97 04/22/17 04:00 98.2 F 73 18 124/59 L 92 L Weight Weight 53.025 kg I&O: 04/21/17 04/22/17 04/23/17 06:59 06:59 06:59 Intake Total 1300 2920 900 Output Total 450 5375 Balance 850 -2455 900 Result Diagrams: 04/22/17 06:08 04/22/17 06:07 <Sreedhar Gleason - Last Filed: 04/22/17 11:35> Phys Exam - Physical Examination HEENT: PERRLA, oral pharynx no lesions Mouth a little dry Neck: no nodes, no JVD, supple, full ROM Respiratory: no wheezing, no rales, no rhonchi, clear to auscultation bilateral Cardiovascular: RRR, no significant murmur, no rub Gastrointestinal: soft, no distention, positive bowel sounds mildly tender to palpation Musculoskeletal: no edema, pulses present Neurological: non-focal, normal sensation Lymphatic: no nodes Psychiatric: normal affect, A&O x 3 Deviation from normal: calm this morning Skin: no rash, normal turgor, cap refill <2 seconds <Roland Franks - Last Filed: 04/22/17 08:42> Dx/Plan (1) COPD (chronic obstructive pulmonary disease) Status: Acute (2) Hx of atrial flutter Code(s): Z86.79 - PERSONAL HISTORY OF OTHER DISEASES OF THE CIRCULATORY SYSTEM Status: Acute (3) Hyponatremia Code(s): E87.1 - HYPO-OSMOLALITY AND HYPONATREMIA Status: Resolved (4) Anxiety Code(s): F41.9 - ANXIETY DISORDER, UNSPECIFIED Status: Acute (5) Constipation Code(s): K59.00 - CONSTIPATION, UNSPECIFIED Status: Acute (6) Abdominal pain Code(s): R10.9 - UNSPECIFIED ABDOMINAL PAIN Status: Acute (7) Hypokalemia Code(s): E87.6 - HYPOKALEMIA Status: Resolved (8) Suspected CHF (congestive heart failure) Code(s): Z03.89 - ENCNTR FOR OBS FOR OTH SUSPECTED DISEASES AND COND RULED OUT Status: Resolved - Plan Plan: Hx of A. Flutter/A. fib -Started on home meds -Tele monitoring -Continue to monitor HR. Staying stable -Will likely start statin -Awaiting outside record COPD -Stated hx of COPD, possible excacerbation. Infection unlikely -Prednisone burst -Await records from outside education general manager -Duonebs restarted as HR is stable. -Do not give spiriva as potenially caused angioedema Hyponatremia-resolved -Improved to 140 -NS@75 mls/hr -continue to monitor with CMP Hypokalemia -resolved t -WNL today Monitor with CMP Anxiety -Continue home lorazepam dose -Lorazepam PRN noted -Consider SSRI outpatient Abdominal pain -CT ab/pelvis: no acute abnormality -Abdomen U/S: distended galbladder, dilated common bile duct -Hep C Ab positive. PCR RNA pending- Has confirmed hx of Hep C diagnosis -Hida Scan- normal exam, no need for surgery at this time -GI-Dr. Mo, consulted per Recs of Speech- Suspected Esophageal dysmotility causing swallowing trouble and possible pain -EGD to be done today. will await results and recommendations -Possible Barium swallow per Speech. -[place] for pain control at this time CHF unlikely per Recs of Cardiology -Echo shows LV function mildly depressed, EF 45-50%, E/A flow reversed noted, Diastolic Dysfunction, Mild Mitral Regurg, Mild tricuspid Regurg -Started on aspirin, -Awaiting records from outside whiteprinting machine operator -Cardiology Consulted- Dr. Nesbitt- will follow recs -No indication of Heart Failure at this time. -started on low dose Losartan <Roland Franks - Last Filed: 04/22/17 08:42> Attending Addendum - Attending Addendum I personally evaluated the patient and discussed the management with Dr. Franks I agree with the History, Examination, Assessment and Plan documented above with any addition or exceptions noted below. Will await EGD procedure to be performed by Dr. Mo. Will follow recs from GI and cardiology. <Sreedhar Gleason - Last Filed: 04/22/17 11:35>
[2017-04-22] MEDS: Docusate 100 MG CAP PO SCH ×2 (09:00→20:19)
[2017-04-22] MEDS: Famotidine 20 MG TAB PO SCH ×2 (09:00→20:18)
[2017-04-22] MEDS: Dronedarone HCl 400 MG TAB PO SCH ×2 (09:00→17:16)
[2017-04-22] MEDS: Loratadine 10 MG TAB PO SCH (09:16)
[2017-04-22] MEDS: Lorazepam 1 MG TAB PO SCH (09:16)
--- NOTE | 2017-04-22 11:26 | PDOC.CTH ---
Cardiology Progress Note - Subjective The pt was seen and examined. No overnight events. No Cardiac complaints. The pt is NPO now for EGD today. She complains of headache for 15 mins after she received some pain medication. - Objective Vital Signs Temp Pulse Resp BP Pulse Ox 04/22/17 08:00 98.3 F 79 22 H 137/83 97 04/22/17 04:00 98.2 F 73 18 124/59 L 92 L Weight 116 lb 14.4 oz 04/21/17 04/22/17 04/23/17 06:59 06:59 06:59 Intake Total 1300 2920 900 Output Total 450 5375 Balance 850 -2455 900 - Physical Examination General/Neuro: alert & oriented x3 Neck: no JVD present Lungs: CTA Heart: RRR Abdomen: soft Extremities: other: (No edema) - Telemetry Telemetry Rhythm: Sr 82 - Labs Result Diagrams: 04/22/17 06:08 04/22/17 06:07 Troponin/CKMB CK-MB (CK-2) 1.8 ng/mL (0-6.6) 04/18/17 13:11 Troponin I Less than 0.010 ng/mL (< 0.028) 04/18/17 13:11 - Assessment/Plan 1. Combined HF - 2D Echo on 04/19 showed EF 45-50% with grade I diastolic dysfunction; stable with current medication 2. Hx of atrial flutter - Remain SR on tele; still waiting for the record from [place] 3. COPD - RA and on O2 supplement during sleep; On PO steroid; managed by PCP 4. Dysphagia - suspected Esophageal dysmotility causing swallowing trouble and possible pain; NPO for MAR EGD today 5.Hyponatoremia - Resolved; managed by PCP 6. Hypokalemia - resolved; managed by PCP 7. Anxiety - stable with current medication MAR reviewed Review of Systems - Review of Systems Constitutional: reports: other (headache) EENTM: reports: no symptoms reported Respiratory: reports: no symptoms reported Cardiac (ROS): reports: no symptoms reported ABD/GI: reports: no symptoms reported : reports: no symptoms reported Musculoskeletal: reports: no symptoms reported
[2017-04-22] MEDS ORDERED: Propofol 200 MG/20 ML VIAL ONE (15:23)
[2017-04-22] MEDS ORDERED: Lidocaine 1% PF 5 ML VIAL ONE (15:23)
--- NOTE | 2017-04-22 16:40 | OP ---
DATE OF PROCEDURE: 04/22/2017 PROCEDURE: Esophagogastroduodenoscopy with esophageal dilation over a guidewire. PREOPERATIVE DIAGNOSIS: Dysphagia. OPERATIVE NOTE: Informed consent was obtained from the patient. She was sedated with total intrave nous anesthesia. The bite block was placed and the endoscope was advanced easily to the second port ion of the duodenum and retroflexion was performed in the stomach. The esophagus was normal through out. The GE junction was normal. The stomach was normal including retroflexed views. The pylorus and first and second portions of the duodenum were normal. A guidewire was placed and an 18 mm Sava ry dilator was passed all the way through the esophagus with no resistance. Second look endoscopy r evealed no change after dilation. IMPRESSION: 1. Normal esophagogastroduodenoscopy. 2. Esophageal dilation was performed to 18 mm with a Savary dilator. There was no change on second look. There were no endoscopic findings to suggest eosinophilic esophagitis. RECOMMENDATIONS: 1. Follow up with Dr. Hobbs in 4 weeks. If these symptoms continue, then esophageal manometry could be considered. 2. I will sign off for now. Please call if GI can be of assistance.
[2017-04-22] MEDS: predniSONE 20 MG TAB PO SCH (17:17)
[2017-04-22] MEDS: Losartan Potassium 25 MG TAB PO SCH (17:20)
[2017-04-22] MEDS: HYDROcodone/Acetaminophen 5/325 mg Tablet PO PRN ×2 (17:54→22:19)
[2017-04-22] MEDS: Lorazepam 2 MG/ML VIAL SLOW IVP PRN (20:18)
[2017-04-22] MEDS: Cyclobenzaprine 10 MG TAB PO PRN (23:26)
[2017-04-22] MEDS: Sodium Chloride 0.9% 1,000 ML IV SCH (23:26)
[2017-04-23] MEDS: Sodium Chloride 0.9% 1,000 ML IV SCH (04:23)
[2017-04-23 05:29] LABS: #Lymphocytes 0.4 thou/uL (1.20-3.40); #Monocytes 0.5 thou/uL (0.11-0.59); #Neutrophils 6.4 thou/uL (1.40-6.50); %Lymphocytes 5.8 % (21.0-51.0); %Monocytes 7.2 % (0.0-10.0); Hematocrit 41.1 % (36.0-47.0); Red Blood Cell (RBC) Count 4.34 mill/uL (4.20-5.40); White Blood Cell (WBC) Count 7.4 thou/uL (4.8-10.8)
[2017-04-23 06:31] LABS: ALT (SGPT) 17 U/L (8-55); AST (SGOT) 17 U/L (5-34); Alkaline Phosphatase 61 U/L (40-150); Anion Gap 11 mmol/L (10-20); BUN (Urea Nitrogen) 14 mg/dL (9.8-20.1); Bilirubin, Total 0.4 mg/dL (0.2-1.2); Calc. Creatinine Clearance 67 mL/min (70-130); Calcium 9.1 mg/dL (7.8-10.44); Carbon Dioxide 32 mmol/L (22-29); Chloride 99 mmol/L (98-107); Estimated GFR-MDRD 78; Globulin 2.2 g/dL (2.4-3.5); Protein, Total 6.1 g/dL (6.0-8.3)
--- NOTE | 2017-04-23 07:08 | PDOC.FM ---
- Subjective Subjective: Pt reports doing okay. Pt concernced about her blood pressure dropping. Had some concerns about new medication. Denies any chest pain or SOB. Did report some abdominal pain and some trouble swallowing. Pt did report still feeling anxious. No other concerns or problems at this time. - Objective MAR Reviewed: Yes Vital Signs & Weight: Vital Signs (12 hours) Temp Pulse Resp BP Pulse Ox 04/23/17 04:30 98 04/23/17 04:00 97.6 F 64 20 105/61 98 04/22/17 23:37 97.6 F 80 20 102/57 L 97 04/22/17 23:30 97 04/22/17 20:15 98.2 F 84 20 144/81 H 93 L Weight Weight 53.161 kg I&O: 04/22/17 04/23/17 04/24/17 06:59 06:59 06:59 Intake Total 2920 900 Output Total 5375 Balance -2455 900 Result Diagrams: 04/23/17 04:09 04/23/17 04:09 Radiology Reviewed by me: Yes Phys Exam - Physical Examination HEENT: PERRLA, moist MMs, oral pharynx no lesions Neck: no nodes, no JVD, supple, full ROM Respiratory: no wheezing, no rales, no rhonchi, clear to auscultation bilateral Cardiovascular: RRR, no significant murmur, no rub Gastrointestinal: soft, no distention, positive bowel sounds mildly tender to palpation Musculoskeletal: no edema, pulses present Neurological: non-focal, normal sensation Psychiatric: normal affect, A&O x 3 Deviation from normal: anxious Skin: no rash Dx/Plan (1) COPD (chronic obstructive pulmonary disease) Status: Acute (2) Hx of atrial flutter Code(s): Z86.79 - PERSONAL HISTORY OF OTHER DISEASES OF THE CIRCULATORY SYSTEM Status: Acute (3) Hyponatremia Code(s): E87.1 - HYPO-OSMOLALITY AND HYPONATREMIA Status: Resolved (4) Anxiety Code(s): F41.9 - ANXIETY DISORDER, UNSPECIFIED Status: Acute (5) Constipation Code(s): K59.00 - CONSTIPATION, UNSPECIFIED Status: Acute (6) Abdominal pain Code(s): R10.9 - UNSPECIFIED ABDOMINAL PAIN Status: Acute (7) Hypokalemia Code(s): E87.6 - HYPOKALEMIA Status: Resolved (8) Suspected CHF (congestive heart failure) Code(s): Z03.89 - ENCNTR FOR OBS FOR OTH SUSPECTED DISEASES AND COND RULED OUT Status: Acute - Plan Plan: Hx of A. Flutter/A. fib -Started on home meds -Tele monitoring -Continue to monitor HR. Staying stable -will recommend statin -Awaiting outside record COPD -Stated hx of COPD, possible excacerbation. Infection unlikely -Prednisone burst -Await records from outside chair frame builder -Duonebs restarted as HR is stable. -Do not give spiriva as potenially caused angioedema Hyponatremia-resolved -Improved to 138 -NS@75 mls/hr -continue to monitor with CMP Hypokalemia -resolved -WNL today Monitor with CMP Anxiety -Continue home lorazepam dose -Lorazepam PRN noted -Consider SSRI outpatient Abdominal pain -CT ab/pelvis: no acute abnormality -Abdomen U/S: distended galbladder, dilated common bile duct -Hep C Ab positive. PCR RNA pending- Has confirmed hx of Hep C diagnosis -Hida Scan- normal exam, no need for surgery at this time -GI-Dr. Mo, consulted per Recs of Speech- Suspected Esophageal dysmotility causing swallowing trouble and possible pain -EGD: no abnormality. Dilatated to 18 cm but did not see much change after. recommend f/u outpatient and possible manometry at the time if no i improvement -Speech Recs- Will get barium swallow today. Still having trouble after repeat assessment after EGD -[place] for pain control at this time combined CHF per Recs of Cardiology- Berenice LAUREN -Dr. mathews mentioned low suspicion -Echo shows LV function mildly depressed, EF 45-50%, E/A flow reversed noted, Diastolic Dysfunction, Mild Mitral Regurg, Mild tricuspid Regurg -Started on aspirin, -Awaiting records from outside seed mill superintendent -Cardiology Consulted- Dr. Mathews- will follow recs -started on low dose Losartan -BP a little low this morning will continue to monitor
[2017-04-23] MEDS: Dronedarone HCl 400 MG TAB PO SCH (08:46)
[2017-04-23] MEDS: Loratadine 10 MG TAB PO SCH (08:46)
[2017-04-23] MEDS: Docusate 100 MG CAP PO SCH (08:46)
[2017-04-23] MEDS: predniSONE 20 MG TAB PO SCH (08:46)
[2017-04-23] MEDS: Famotidine 20 MG TAB PO SCH (08:46)
[2017-04-23] MEDS: Lorazepam 1 MG TAB PO SCH (08:47)
[2017-04-23] MEDS: Losartan Potassium 25 MG TAB PO SCH (08:47)
--- NOTE | 2017-04-23 13:00 | RAD ---
MODIFIED BARIUM SWALLOW: 04/23/2017 HISTORY: Dysphagia, oropharyngeal phase. Feeding difficulties. FLUOROSCOPY: Total fluoroscopy time is 1.9 minutes with a total dose of 3.86 mGy. FINDINGS: This examination was performed in conjunction with speech pathology. Thin and thick liquid barium, as well as pudding consistency and a barium-soaked cracker were administered during the exam. There were several episodes of premature spill of contrast into the vallecula and piriform sinuses p rior to initiation of the swallowing mechanism. There was otherwise normal formation of the bolus i nto the posterior pharynx. Several episodes of pooling within the vallecula and piriform sinuses we re noted during the exam. There was deep penetration with thin liquid barium, when administered by a cup. This was not present with thin liquid barium by a spoon. There may have been a single episo de of trace aspiration with the thin liquid barium. There was no penetration or aspiration when hema ing the thin liquid barium with the chin tuck maneuver. IMPRESSION: 1. Several episodes of pooling within the vallecula and piriform sinuses with varying consistencies . 2. Episodes of penetration with thin liquid barium by cup. A single trace episode of aspiration wa s present. POS: [facility]
[2017-04-23] MEDS: HYDROcodone/Acetaminophen 5/325 mg Tablet PO PRN (14:40)
--- NOTE | 2017-04-23 17:06 | PDOC.CTH ---
Cardiology Progress Note - Subjective Breathing back to baseline. - Objective Vital Signs Temp Pulse Resp BP Pulse Ox 04/23/17 16:00 98.7 F 75 22 H 102/59 L 94 L 04/23/17 08:46 64 04/23/17 08:40 98.7 F 81 20 116/67 97 Weight 117 lb 3.2 oz 04/22/17 04/23/17 04/24/17 06:59 06:59 06:59 Intake Total 2920 1910 Output Total 5326 1200 Balance -7885 710 - Physical Examination General/Neuro: alert & oriented x3, NAD Neck: no JVD present Lungs: unlabored respirations Heart: RRR Abdomen: NT/ND Extremities: other: (no edema.) - Telemetry Telemetry Rhythm: NSR - Labs Result Diagrams: 04/23/17 04:09 04/23/17 04:09 Troponin/CKMB CK-MB (CK-2) 1.8 ng/mL (0-6.6) 04/18/17 13:11 Troponin I Less than 0.010 ng/mL (< 0.028) 04/18/17 13:11 - Assessment/Plan 1. Acute on chronic combined heart failure, improved. 2. Hx of atrial flutter - currently in NSR 3. COPD exacerbation 4. Dysphagia 5. Hyponatoremia - Resolved 6. Hypokalemia - resolved Home anytime from cardiac perspective.
[2017-04-23 21:39] VITALS: BP 116/71; TEMP 97.9
--- NOTE | 2017-04-24 07:10 | ADD-PRG ---
ADDENDUM DATE OF SERVICE: 04/23/2017 The patient was seen and evaluated and examined with the residents by bedside and discussed. Basica lly from a cardiac standpoint, she is perfectly fine from a respiratory standpoint. She was doing w ell. Cardiology has cleared her. Having some swallowing difficulty issue and ended up getting swal lowing study, and then a barium swallow did show that she does aspirate thin liquids, and not if she does a chin tuck, and so we are going to recommend that to her, otherwise we will continue all home medications and she will be discharged either tonight or first thing tomorrow. She has a lot of GI issues and apparently has some home remedies, and I told her to use that sparingly.
--- NOTE | 2017-04-24 16:32 | DIS-2 ---
DATE OF ADMISSION: 04/18/2017 DATE OF DISCHARGE: 04/23/2017 ADMITTING ATTENDING: Dr. Autumn Moreno. DISCHARGE ATTENDING: Dr. Pankaj Loving. RESIDENT: Roland Franks M.D., PGY1. CONSULTATIONS: During this visit were Cardiology, Dr. Nesbitt; and GI, Dr. Osmin Hobbs. PROCEDURES: Done during this visit were an EGD on 04/22, modified barium speech swallow on 04/23, and a cardiac echo on 04/19/2017. DIAGNOSES: 1. Chronic obstructive pulmonary disease. 2. History of atrial flutter. 3. Combined congestive heart failure. 4. Hyponatremia. 5. Generalized anxiety disorder. 6. Constipation. 7. Abdominal pain, trouble swallowing. 8. Hypokalemia. DISCHARGE MEDICATIONS: Include, 1. Fluticasone/Advair Diskus 250/50 one inhaler. 2. DuoNeb 3 mL nebulizer, q.4 hours p.r.n.. 3. Losartan 25 mg p.o. daily. 4. Acetaminophen 500 mg tab. 5. Aspirin 81 mg. 6. Cyclobenzaprine 5 mg p.o. daily. 7. Cartia XT 120 mg. 8. Dronedarone (Multaq) 400 mg tab daily. 9. Hydrochlorothiazide 25 mg p.o. daily. 10. Lorazepam 1 mg tab daily. DISCONTINUED MEDICATIONS: Tiotropium. HISTORY OF PRESENT ILLNESS AND BRIEF HOSPITAL COURSE: It was noted that the patient was a poor historian. This is a 61-year-old female with a significant history of anxiety and COPD and a history of atrial flutter that presented to the ED with a 2-week chief complaint of shortness of breath. During this time, she had been noted that she was taking her normal Spiriva dose, but then had some left-sided chest pain. Over the past 3 days, she had some tongue swelling as well. She had recently been in the ER in [place] the last 3 days multiple times; one time they did a possible PE workup and the other time they gave her Benadryl for tongue swelling and sent her home. She did not take her Spiriva since. She came in today continuing with shortness of breath. At this time, we decided we admit her with possible COPD exacerbation. She had also mentioned having some leg swelling over the last few days. We thought maybe she had some new onset heart failure as well. During the first day, she got a chest x-ray, showed no evidence of cardiopulmonary disease. We did get the abdomen and pelvis, as she was complaining of abdominal pain and pelvic pain. She did have some right upper quadrant pain on palpation as well. CT abdomen showed no evidence of acute process identified. During this time, we decided to get an echocardiogram on the . She got an echo, which showed ejection fraction of 45%-50%, E-A flow reversal noted, suggested diastolic dysfunction, showed mild mitral regurg and showed mild tricuspid regurg, and said overall left ventricular function is mildly depressed. It was a difficult exam due to patient's breathing status from the COPD. On the , we got a right upper quadrant ultrasound, which showed a distended gallbladder, dilated common bile duct, and a 1 cm right renal angiomyolipoma. During this time, we decided to get a HIDA scan, as she continued to have abdominal pain. Upon review of the HIDA scan on the , it showed a normal exam. At this time, we decided that we would not need to further workup her abdominal pain during this time as well. When she came in, her AST and ALT were noted to be normal at 24 and 18, alkaline phosphatase was 65 on admission, and her total bilirubin was 0.6, and during this visit, the AST, ALT, and total bilirubin never elevated and stayed within that range. Then, at this time, she also complained of trouble swallowing with her tongue over the last few days. She said she had only been eating pudding and avocados due to difficulty swallowing. We got speech consulted as well. Speech recommended that we consult GI, as they thought this was a lower esophagus problem. At this time, on the , we consulted Dr. Osmin Hobbs, who decided that an EGD would be useful at this time. We also consulted on the Dr. Nesbitt of Cardiology per the possible sign of heart failure. Per Dr. Nesbitt' report on consultation, she did not suspect really chronic heart failure, and at this time, did not sign off, but said it was okay for her to get the EGD. They also are awaiting records, as she had been seen by gardener and industrial ecology technician in [facility] reuben Mann in the [facility]. We finally got records on the per Cardiology. On the , they decided to sign off. Her PA saw her in the next few days and they did mention that maybe there was a combined heart failure, mildly suspected. On the , Dr. John Nash performed the EGD. He did not note any abnormalities on the EGD. He did perform a dilatation up to 18 cm, but after review of the dilatation, he noted that this did not make much of a difference. At this time , speech came and reassessed her on the and recommended a modified barium speech swallow. We did the modified barium speech swallow on the , which showed several episodes of pooling within the vallecula and piriform sinuses with variant consistencies. There were episodes of penetration with liquid barium by cup and a single trace episode of aspiration was present. I discussed these findings with her speech therapist. She thought that she would likely need to continue to follow up with GI, maybe do a barium swallow outpatient. She recommended that this might also be brought on by her anxiety as well. I recommended that maybe speech therapy outpatient would be useful. At this time, Cardiology continued her home medications for her atrial fibrillation and started on losartan for the possible atrial fibrillation. On the , Cardiology decided it was okay to sign off, Speech decided it was okay to sign off. After the , GI had signed off and recommended follow up in 4 months with possible manometry, as recommended outpatient. It is noted during this whole time, it does seem like severe anxiety. It does seem that this anxiety does precipitate a lot of these problems and make these problems a lot worse. She was only taking lorazepam. She got lorazepam here. It is highly recommended that the patient outpatient get started on SSRI treatment, even get set up with Psychology for cognitive behavioral therapy for anxiety. I think a lot of her problems are related to underlying anxiety and treatment for anxiety. I think it will help a lot with these problems. For her COPD, we may not suspect COPD exacerbation. We did start her back up on DuoNeb and we gave her prednisone burst during her visit. At this time, it was decided that she would be discharged on the . DISPOSITION: Stable. DISCHARGE INSTRUCTIONS: 1. Location: Home. 2. Activity: As tolerated. 3. Diet: They recommend that she do softer foods with lots of liquid like gravies. Speech Therapy recommended small sips when she drinks. 4. Followup: She will follow up with Delia Delgado, Nurse Practitioner, on 04/25/2017, at 2:15 p.m. She will follow up with Dr. Osmin Hobbs in a month and will follow up with Dr. Nesbitt in a month and was told to follow up with her Pulmonology as well in the next month or so for her COPD. [place]
== END 2017-04-23 20:27 | disposition home or self-care (01) | DRG 191 ==
LOC: ERS 12:46 → 3SE 15:46 → 2NO 21:50
PROVIDERS: ADMIT Family Medicine; ATTEND Family Medicine
PROC: 0D758ZZ Dilation of Esophagus, Via Natural or Artificial Opening Endoscopic (ICD-10-PCS; principal; 2017-04-22)
DX: J44.1 Chronic obstructive pulmonary disease with (acute) exacerbation (principal); I50.40 Unspecified combined systolic (congestive) and diastolic (congestive) heart failure; E87.8 Other disorders of electrolyte and fluid balance, not elsewhere classified; R13.10 Dysphagia, unspecified; E87.1 Hypo-osmolality and hyponatremia; I48.91 Unspecified atrial fibrillation; E86.0 Dehydration; F41.1 Generalized anxiety disorder; K59.00 Constipation, unspecified; Z87.891 Personal history of nicotine dependence; R10.11 Right upper quadrant pain; E87.6 Hypokalemia; T78.3XXA Angioneurotic edema, initial encounter
CPT/HCPCS: 36415; 71010; 74176; 74230; 76705; 78227; 80053; 80061; 80306; 81003; 82550; 82553; 83605; 83735; 83880; 83930; 83935; 84300; 84484; 85025; 85610; 85730; 86704; 86706; 86709; 86780; 86803; 87040; 87340; 87389; 87522; 93005; 93306; 94640; 94760; A9537; G8996-GN-CJ; G8996-GN-CL; G8997-GN-CI; J1200; J1650; J2001; J2060; J2405; J2704; J7050; J7506; J7611; J7620; J7644; Q0162

== ENCOUNTER 2017-05-09 16:16 | Emergency (ER) | payer SELFPAY ==
[2017-05-09 17:00] LABS: #Eosinphils 0.1 thou/uL (0.0-0.7); #Monocytes 0.5 thou/uL (0.11-0.59); #Neutrophils 4.1 thou/uL (1.40-6.50); %Eosinophils 1.2 % (0.0-10.0); %Lymphocytes 17.5 % (21.0-51.0); %Monocytes 8.1 % (0.0-10.0); Mean Platelet Volume 7.3 fL (7.4-10.4); Red Blood Cell (RBC) Count 4.41 mill/uL (4.20-5.40); White Blood Cell (WBC) Count 5.6 thou/uL (4.8-10.8)
--- NOTE | 2017-05-09 17:06 | RAD ---
AP VIEW OF CHEST: Date: 05/09/17 INDICATION: History of throat dilation and shortness of breath. FINDINGS: COPD changes are stable. No acute air space opacity or pleural effusion is noted. Vascular calcifica tions of aortic arch similar. No acute osseous abnormality is evident. IMPRESSION: No acute cardiopulmonary abnormality. POS: [facility]
[2017-05-09 17:26] LABS: Anion Gap 18 mmol/L (10-20); BUN (Urea Nitrogen) 5 mg/dL (9.8-20.1); Calc. Creatinine Clearance 0 mL/min (70-130); Calcium 10.1 mg/dL (7.8-10.44); Carbon Dioxide 29 mmol/L (22-29); Chloride 90 mmol/L (98-107); Estimated GFR-MDRD 77
[2017-05-09] MEDS ORDERED: Lorazepam 2 MG/ML VIAL ONE (18:29)
== END 2017-05-09 20:17 | disposition home or self-care (01) ==
LOC: ERS 16:16
DX: R13.10 Dysphagia, unspecified (principal); I10 Essential (primary) hypertension; J44.9 Chronic obstructive pulmonary disease, unspecified; F41.9 Anxiety disorder, unspecified; F32.9 Major depressive disorder, single episode, unspecified; Z87.891 Personal history of nicotine dependence
CPT/HCPCS: 71010; 80048; 85025; 93005; 96361; 96374; J2060

== ENCOUNTER 2018-01-16 13:52 | Outpatient (CLI) | payer MEDICARE, OTHER ==
--- NOTE | 2018-01-16 14:09 | RAD ---
CHEST 2 VIEWS: Date: 01/16/18 HISTORY: Dyspnea. COMPARISON: 05/09/17. FINDINGS: Cardiac silhouette and pulmonary vasculature are unremarkable. Mediastinum midline with aortic calcif ication. Lungs are hyperinflated with flattening of each hemidiaphragm. No confluent air space consol idation, pneumothorax, or pleural fluid. IMPRESSION: 1. COPD. 2. Atherosclerosis. POS: [facility]
== END 2018-01-16 13:53 | disposition home or self-care (01) ==
LOC: RAD 13:52
PROVIDERS: ATTEND Internal Medicine Pulmonary Disease
DX: R06.00 Dyspnea, unspecified (principal); J44.9 Chronic obstructive pulmonary disease, unspecified; I70.90 Unspecified atherosclerosis
CPT/HCPCS: 71046

== ENCOUNTER 2018-02-21 11:19 | Inpatient (IN) | payer MEDICARE ==
[2018-02-21 12:06] LABS: #Lymphocytes 0.5 thou/uL (1.20-3.40); #Monocytes 0.7 thou/uL (0.11-0.59); #Neutrophils 6.9 thou/uL (1.40-6.50); %Eosinophils 0.5 % (0.0-10.0); %Lymphocytes 5.7 % (21.0-51.0); %Monocytes 8.1 % (0.0-10.0); %Neutrophils 85.7 % (42.0-75.0); Hemoglobin 13.8 g/dL (12.0-16.0); Mean Corpuscular HGB CONC 32.6 g/dL (32.0-36.0); Mean Corpuscular Hemoglobin 29.8 pg (27.0-31.0); Mean Corpuscular Volume 91.5 fL (78.0-98.0); Mean Platelet Volume 7.4 fL (7.4-10.4); Platelet Count 164 thou/uL (130-400); RBC Distribution Width 11.6 % (11.5-14.5); Red Blood Cell (RBC) Count 4.64 mill/uL (4.20-5.40)
[2018-02-21 12:15] LABS: Base Excess-Venous 7.4 mmol/L (0 (+/- 2.5)); Bicarbonate (HCO3v) 32.7 mmol/L (1.0-85.0); CO2 Tension (PvCO2) 46.9 mmHg (41.0-51.0); Calcium, Ionized 1.05 mmol/L (1.12-1.32); Hemoglobin - Calc 14.9 g/dL (12.0-18.0); Potassium 3.8 mmol/L (3.4-4.7); T. Carbon Dioxide 34.1 mmol/L (1.0-85.0); pH (Venous) 7.451 (7.35-7.45)
[2018-02-21] MEDS ORDERED: methylPREDNISolone Sod Succ/PF 125 MG/2 ML VIAL ONE (12:18)
[2018-02-21 12:28] LABS: ALT (SGPT) 11 U/L (8-55); AST (SGOT) 17 U/L (5-34); Albumin 4.3 g/dL (3.5-5.0); Alkaline Phosphatase 87 U/L (40-150); Anion Gap 15 mmol/L (10-20); BUN (Urea Nitrogen) 17 mg/dL (9.8-20.1); Bilirubin, Total 0.5 mg/dL (0.2-1.2); Calc. Creatinine Clearance 0 mL/min (70-130); Calcium 9.2 mg/dL (7.8-10.44); Carbon Dioxide 26 mmol/L (22-29); Chloride 100 mmol/L (98-107); Estimated GFR-MDRD 83; Globulin 2.7 g/dL (2.4-3.5); Glucose 110 mg/dL (70-105); Potassium 3.8 mmol/L (3.5-5.1); Sodium 137 mmol/L (136-145)
[2018-02-21] MEDS ORDERED: Magnesium Sulfate 2 GM in Sodium Chloride 0.9% 100 ML IVPB ONE (12:30)
[2018-02-21 12:35] LABS: CKMB 1.9 ng/mL (0-6.6); Troponin I Less than 0.010 ng/mL (< 0.028)
[2018-02-21] MEDS ORDERED: Erythromycin Base 0.5% Oint 1 GM TUBE ONE (12:47)
[2018-02-21] MEDS ORDERED: Succinylcholine Chloride 20 MG/ML 10 ml SYRINGE FS ONE ×2 (12:47→13:00)
[2018-02-21] MEDS ORDERED: Fentanyl 20 mcg/ml (100 ml CADD) IV PRN (13:04)
[2018-02-21 13:09] LABS: Prothrombin Time 13.2 SEC (12.0-14.7)
--- NOTE | 2018-02-21 13:09 | RAD ---
2 VIEWS RIGHT HIP: Date: 02/21/18 HISTORY: Transfer from [place]. Right hip fracture after fall at home. FINDINGS: There is a subcapital right femoral neck fracture. There is mild impaction of the fracture fragments and the distal fracture fragment is slightly displaced medially. Phleboliths overlie the pelvis. IMPRESSION: Mildly impacted and slightly displaced subcapital right femoral neck fracture. POS: [facility]
[2018-02-21 13:10] LABS: PTT 23.6 SEC (22.9-36.1)
--- NOTE | 2018-02-21 13:17 | RAD ---
PORTABLE AP CHEST: Date: 02/21/18 HISTORY: Right hip fracture after fall at home. COMPARISON: 01/16/18. FINDINGS: There are bibasilar increased interstitial opacities, greater on the right, which were not present on the prior exam. Findings may be related to bibasilar infectious process. There is a nodular density at the left lung base which could be related to mild focal eventration of the left hemidiaphragm. Thi s was not present on the prior exam. Cardiac silhouette and pulmonary vasculature are within normal l imits. Vascular calcifications are seen in the thoracic aorta. There is mild lucency in the upper lung zones bilaterally, which could be related to emphysematous ch anges within the lungs. IMPRESSION: 1. Increased bibasilar interstitial opacities, not present on recent study on 01/16/18, and findings may be related to bibasilar infectious process. Asymmetric pulmonary edema is felt less likely. 2. Nodular density left lung base not present on the prior study. This has the appearance of focal eventration left hemidiaphragm, but follow-up evaluation is recommended with PA and lateral chest x-r ay. POS: [facility]
[2018-02-21 13:35] LABS: ALV-art Gradient 157.925 (0-20); Actual Bicarbonate (HCO3a) 27.3 mEq/L (22-28); Analyzer IN Cardio ER; Base Excess (BEa) 2.3 mEq/L (-2.0 to +3.0); CO2 Tension 43.5 mmHg (35.0-45.0); Calcium, Ionized 1.1 mmol/L (1.12-1.30); Hematocrit-ABG 41.3 % (36.0-47.0); Hemoglobin (Hb) 13.1 g/dL (12.0-16.0); O2 Tension (PaO2) 70.9 mmHg (> 80.0); Puncture Site LRA; pH, Arterial 7.42 (7.35-7.45)
--- NOTE | 2018-02-21 14:23 | RAD ---
PORTABLE AP CHEST RADIOGRAPH: Date: 02-21-18 History: Post intubation, post NG tube placement. Comparison: 02-21-18 at 1208 hours. FINDINGS: There has been interval placement of an endotracheal tube with the tip overlying the T4-5 level and a king[place] the level of the hank. Nasogastric tube has also been placed in the interim which courses into the left upper quadrant with tip incompletely imaged but overlies the expected location of the gastr ic fundus. Increased interstitial density is seen at each lung base, greater on the right, similar to the prior exam. As stated on the prior exam, these interstitial densities were not present on the st udy of 01-16-18 and findings may be related to infectious process. There is a nodular density projecti ng over the right lung base which probably represents a nipple shadow. Similar but less conspicuous f inding is seen in a similar location on the left. Cardiac silhouette and pulmonary vasculature are wi thin normal limits. No other interval change. IMPRESSION: 1. Interval placement of endotracheal tube and nasogastric tube. 2. Bibasilar interstitial densities greater on the right, which may be related to infectious process. Follow up to complete resolution is recommended. 3. Nodular density projecting over the lateral aspect of each lung base, probably attributable to nip ple shadows. POS: [facility]
[2018-02-21] MEDS ORDERED: cefTRIAXone\\ROCEPHIN 2 GM VIAL ONE (14:46)
--- NOTE | 2018-02-21 14:52 | CT ---
CT HEAD NONCONTRAST: Date: 02/21/18 INDICATION: 62-year-old female with altered mental status, unresponsive. FINDINGS: Ventricular system is normal in size. There is diminished attenuation of the bilateral cerebral white matter indicative of sequelae from ischemic disease. No hemorrhage, mass effect, or midline shift. T here is mild mucosal thickening of paranasal sinuses. IMPRESSION: 1. No acute intracranial hemorrhage or mass effect. 2. Findings most consistent with mild ischemic disease of the bilateral cerebral white matter. POS: [facility]
[2018-02-21] MEDS ORDERED: Azithromycin 500 MG VIAL ONE (15:10)
[2018-02-21] MEDS ORDERED: Magnesium Sulfate 2 GM in Sodium Chloride 0.9% 100 ML IVPB SCH (15:30)
--- NOTE | 2018-02-21 15:30 | RAD ---
CHEST ONE VIEW: History: Chest pain. Comparison: 02-21-18 FINDINGS: Cardiac silhouette is magnified by projection. Pulmonary vasculature is unremarkable. Mediastinum is midline. Tip of a left subclavian central venous catheter overlies the superior vena cava. No evidence of pneu mothorax. Other lines and tubes are unchanged in position. Parenchymal opacity at the right base is u nchanged. IMPRESSION: 1. Left subclavian central venous catheter is in good radiographic position. 2. Otherwise stable radiographic appearance of the chest. POS: [facility]
[2018-02-21] MEDS ORDERED: Potassium Chloride 40 MEQ in Premix Bag 1 BAG IVPB SCH (16:00)
[2018-02-21] MEDS ORDERED: Ventilator Sedation Protocol 1 EACH FS ONE (17:48)
[2018-02-21] MEDS ORDERED: Dextrose 50% Abboject 50 ML SYRINGE SLOW IVP PRN (17:48)
[2018-02-21] MEDS ORDERED: Ondansetron HCl/PF 4 MG/2 ML Vial IVP PRN (17:48)
[2018-02-21] MEDS ORDERED: Dextrose 5% in Water 1,000 ML IV PRN (17:48)
[2018-02-21] MEDS ORDERED: Ondansetron ODT 4 MG TAB PO PRN (17:48)
[2018-02-21] MEDS ORDERED: DISCONTINUE PREVIOUS NARCOTIC PAIN MEDICATIONS AND BENZODIAZEPINES FS SCH (17:53)
[2018-02-21] MEDS ORDERED: Propofol BOLUS 1,000 MG/100 ML VIAL IV PRN (17:53)
[2018-02-21] MEDS ORDERED: fentaNYL Citrate/PF 2,000 MCG in Sodium Chloride 0.9% 60 ML IV SCH (17:53)
[2018-02-21] MEDS ORDERED: Lorazepam 2 MG/ML VIAL SLOW IVP PRN (17:53)
[2018-02-21] MEDS ORDERED: Fentanyl BOLUS 250 ML IVPB PRN (17:53)
[2018-02-21] MEDS ORDERED: Propofol 1,000 MG/100 ML VIAL IV PRN (17:53)
[2018-02-21] MEDS: Lactated Ringer's 1,000 ML IV SCH (18:37)
[2018-02-21 18:49] VITALS: BMI 20.2
--- NOTE | 2018-02-21 22:52 | HP ---
This is Meg Negro, nurse practitioner student, dictating a H and P for Dr. Steve Davila. DATE OF ADMISSION: 02/21/2018 DATE OF SERVICE: 02/21/2018 HISTORY OF PRESENT ILLNESS: Patient is a 62-year-old female who was transferred from [facility], status post ground level fall. Patient was complaining of right hip pain on arrival to [facility]. Patient denies any loss of consciousness or hitting her head. Reported to the ER that she tripped and fell while she was helping a friend to get up off the floor and she ended up falling also. Patient was given morphine for pain prior to transfer and reports she wears oxygen at home on a regular basis for COPD. Head CT and C-spine were negative at [facility] the transport by EMS. Patient became tachypneic and restless with increasing heart rate reported a blood pressure of 153/88, pulse of 112, and a respiratory rate of 24. On arrival to the ER, patient had worsening shortness of breath with room air saturation of 75%. BiPAP was initiated and patient was not able to tolerate. She became anxious, pulling the mask off her face. Patient was treated wi th magnesium 2 grams, Solu-Medrol 125, and multiple DuoNebs and a continuous neb treatment without an y relief. The patient was electively intubated by the ER using RSI with etomidate and succinylcholin e with 7-1/2 ET tube 23 at the lip. Patient was placed on ventilator and sent tunnel volume of 450, FiO2 of 50%, SIMV rate of 14, I:E ratio 1:4, and currently satting 98%. Patient is currently sedated on a fentanyl drip. REVIEW OF SYSTEMS: Ten-point review of systems is negative, unless otherwise noted in the HPI. PAST MEDICAL HISTORY: 1. Hepatitis bronchitis. 2. Chronic obstructive pulmonary disease. 3. Pneumonia. 4. Atrial flutter. 5. Hypertension. SURGICAL HISTORY: Hysterectomy, hernia repair, tonsillectomy, abdominal surgery. SOCIAL HISTORY: Patient is a former smoker who quit in 2005. According to previous hospital H&P, barbara cummings has no alcohol history, and no drug use history. HOME MEDICATIONS: Albuterol inhaler, Cardizem 120 mg daily, Atrovent nebulizer, Cozaar 25 mg daily. ALLERGIES: LEVAQUIN, MORPHINE, PENICILLINS. Reports TORADOL and TRAMADOL cause headaches. PHYSICAL EXAMINATION: CONSTITUTIONAL VITAL SIGNS: Heart rate 135, SpO2 of 96% on the ventilator with FIO2 of 50%, blood pr essure 111/79, respirations 14 and assisted. Patient is sedated on the ventilator. HEENT: Pupils are 3 mm, equal and reactive. Head is atraumatic. There is no nasal deformity. No b leeding from the nares. Mucous membranes are moist. Trachea is midline. C-collar is in place. RESPIRATORY AND CHEST EXAM: Breath sounds are diminished. There are no rales. Patient has equal ch est expansion and symmetrical chest wall movement. Patient does have clubbing to nailbeds. CARDIOVASCULAR: Heart rate is regular and tachycardic. Patient has bilateral strong radial pulses. ABDOMEN: Soft. Patient has positive bowel sounds. EXTREMITIES: Upper extremity normal inspection. Lower extremities: Legs are equal in length with b ilateral strong pedal pulses. NEUROLOGIC: Patient is sedated and intubated. SKIN: Warm, dry to touch and normal color. DIAGNOSTICS: Pelvis x-ray shows a mildly impacted and displaced femoral neck fracture to the right. Head CT without any acute changes. Chest x-ray reveals a right lower lobe pneumonia with hyperinfla usha lungs consistent with her COPD history. CT of C-spine is negative. A 12-lead EKG shows sinus ta chycardia with T-wave abnormalities, which was a change from her previous 12-lead, which was a normal sinus rhythm. LABORATORY DATA: WBC 8.0, RBC 4.64, hemoglobin 13.8, hematocrit 42.5, platelet count 164. PT 13.2, INR 1.0, aPTT 23.6. Arterial blood gas pH 7.42, pCO2 of 43.5, pO2 of 70.9. Base excess 2.3, bicarbo aminata 27.3. Sodium 137, potassium 3.8, chloride 100, anion gap 15, BUN 17, creatinine 0.72, glucose 1 10. Lactic acid 1.6, calcium 9.2, phosphorus 5.2, total bilirubin 0.5, AST 17, ALT 11, alkaline phos phate 87. CK-MB 1.9. Troponin less than 0.010. Serum protein is 7.0, albumin 4.3, globulin 2.7, al bumin globulin ratio 1.6. ASSESSMENT AND PLAN: 1. Ground level fall. 2. Mildly impacted and mildly displaced right femoral neck fracture. 3. Respiratory failure. 4. Chronic obstructive pulmonary disease exacerbation. 5. Right lower lobe pneumonia. 6. Hypovolemia. 7. Hypokalemia. PLAN: Admit to CCU with ventilator management. Consult Pulmonary as she has had a chest x-ray reque sted by Dr. Savage. Consult Ortho for right hip fracture. Replace electrolytes. Place the patient on scheduled neb treatments. Repeat chest x-ray in the morning. Repeat CBC, CMP in the morning. We w ill trend troponins. We will order cardiac echo, as the patient has current EKG changes. We will gi ve patient normal saline at thousand-liter bolus for hypovolemia and we will start maintenance fluids , lactated Ringer's at 100 mL an hour. We will place patient on sedation protocol. Gastric prophyla xis, empiric antibiotics, Zithromax 500 mg IV q.12 hours. Rocephin initial dose 2 grams IV and we wi ll maintain that daily at 1 gram. We will keep in FIO2 to maintain her sats at 92% and above.
[2018-02-22] MEDS: Lactated Ringer's 1,000 ML IV SCH ×3 (01:30→23:54)
[2018-02-22 04:44] LABS: #Lymphocytes 0.3 thou/uL (1.20-3.40); #Monocytes 0.5 thou/uL (0.11-0.59); #Neutrophils 7.2 thou/uL (1.40-6.50); %Basophils 0.2 % (0.0-1.0); %Eosinophils 0.2 % (0.0-10.0); %Lymphocytes 3.2 % (21.0-51.0); %Monocytes 6.8 % (0.0-10.0); %Neutrophils 89.7 % (42.0-75.0); Hemoglobin 11.4 g/dL (12.0-16.0); Mean Corpuscular HGB CONC 33.6 g/dL (32.0-36.0); Mean Corpuscular Hemoglobin 31.1 pg (27.0-31.0); Mean Corpuscular Volume 92.5 fL (78.0-98.0); Mean Platelet Volume 7.3 fL (7.4-10.4); Platelet Count 143 thou/uL (130-400); RBC Distribution Width 11.7 % (11.5-14.5); Red Blood Cell (RBC) Count 3.65 mill/uL (4.20-5.40)
[2018-02-22 04:49] LABS: INR-International Normal Ratio 1.1; PTT 29.1 SEC (22.9-36.1); Prothrombin Time 14.4 SEC (12.0-14.7)
[2018-02-22 05:21] LABS: Anion Gap 9 mmol/L (10-20); BUN (Urea Nitrogen) 11 mg/dL (9.8-20.1); Calc. Creatinine Clearance 86 mL/min (70-130); Calcium 8.5 mg/dL (7.8-10.44); Carbon Dioxide 30 mmol/L (22-29); Chloride 104 mmol/L (98-107); Estimated GFR-MDRD Greater than 90; Glucose 140 mg/dL (70-105); Phosphorus 2.8 mg/dL (2.3-4.7); Potassium 4.2 mmol/L (3.5-5.1); Sodium 139 mmol/L (136-145)
[2018-02-22 08:15] LABS: Actual Bicarbonate (HCO3a) 26.2 mEq/L (22-28); Base Excess (BEa) 0.2 mEq/L (-2.0 to +3.0); CO2 Tension 48.1 mmHg (35.0-45.0); O2 Tension (PaO2) 45.7 mmHg (> 80.0); pH, Arterial 7.35 (7.35-7.45)
[2018-02-22 08:16] LABS: Calcium, Ionized 1.2 mmol/L (1.12-1.30); Hemoglobin (Hb) 11.9 g/dL (12.0-16.0); Puncture Site RRA
[2018-02-22 08:17] LABS: ALV-art Gradient 108.075 (0-20)
--- NOTE | 2018-02-22 09:46 | RAD ---
PORTABLE CHEST: COMPARISON: Prior day's study. HISTORY: Respiratory distress. FINDINGS: Endotracheal and NG tubes are in satisfactory position. Left subclavian line is seen. There is a sl ightly oblong-shaped mass-like area extending from the right hilum. This is more prominent than on t he prior exam but probably represents fluid loculated within the fissure. The right basilar lung piedad nges appear similar to the prior examination. IMPRESSION: Mass-like density in the right mid lung field probably related to fluid within the fissure. The righ t lower lobe parenchymal changes are fairly stable. POS: [facility]
[2018-02-22] MEDS ORDERED: Clindamycin/D5W 900 MG in Premix Bag 1 BAG IVPB SCH (10:45)
--- NOTE | 2018-02-22 10:51 | CON ---
DATE OF CONSULTATION: 02/22/2018 HISTORY: This is a 62-year-old female whom we have seen in the past. She has COPD. She presented t o the ER yesterday after she sustained a fall and broken hip. Pulmonary was consulted because of her chronic lung disease. X-ray showed a right hip fracture. She was transported here. It is unclear when she was intubated, but she is presently intubated on th e vent. Apparently, she was given some morphine in transfer. She was put in the ICU, she is awake and responsive, intubated. PAST MEDICAL HISTORY: Hypertension, COPD, atrial fibrillation, hepatitis C. PAST SURGICAL HISTORY: Includes , laparoscopy, hysterectomy. CURRENT MEDICATIONS: From home is outlined, includes low flow O2, DuoNeb, Cozaar 25, Cardizem 1 a da y, Ativan p.r.n., Breo once a day, aspirin, Multaq 400 a day, lidocaine patch, Flexeril. ALLERGIES: Multiple, ASPIRIN, TORADOL, LEVAQUIN, MORPHINE, PENICILLIN, and TRAMADOL. SOCIAL/FAMILY HISTORY: As noted, tobacco abuse in the past. She quit about a year ago. No alcohol. REVIEW OF SYSTEMS: Otherwise unobtainable. She is on the vent. She is sedated, awake. OBJECTIVE: VITAL SIGNS: Pulse 117, blood pressure is 114/75, sats 96%, respirations 10. EXTREMITIES: She moves all 4 extremities. CHEST: Chest reveals decreased breath sounds without any wheezing. CARDIAC: Normal S1, S2, no gallops. ABDOMEN: Soft, without any masses. NEUROLOGIC: Awake. EXTREMITIES: No edema. LABORATORY: PO2 was 70, pCO2 47.42 on a rate of 12, 30% FiO2, tidal volume 450. White count 8,000, H&H 9 and 33, platelet count 143. Chest x-ray shows a right-sided infiltrate. CT brain was normal. X-ray of the hip shows an impacted displaced right femoral neck fracture. IMPRESSION: 1. Chronic obstructive pulmonary disease. 2. Tobacco abuse. 3. Question of right lower pneumonia. 4. Cardiac arrhythmias. 5. Respiratory failure. 6. Fractured hip. PLAN: We will wean post-surgery. In the meantime, neb treatments, steroids, supportive care. I agr ee with antibiotics. Forty-five minutes critical care time.
[2018-02-22] MEDS ORDERED: Ketorolac Tromethamine 30 MG/ML VIAL IVP SCH (12:15)
[2018-02-22] MEDS: Acetaminophen 1,000 MG in Premix Bag 1 BAG IVPB SCH ×3 (12:27→23:54)
--- NOTE | 2018-02-22 12:34 | CON ---
DATE OF CONSULTATION: 02/22/2018 REQUESTING PHYSICIAN: Trauma Services. CONSULTING PHYSICIAN: Devan Cleary M.D. REASON FOR CONSULTATION: Right hip fracture. HISTORY OF PRESENT ILLNESS: This is a 62-year-old female, who reportedly fell at home. She has a [facility] medical history significant for COPD, requiring home oxygen. The majority of history was obtained through medical records, as the patient is intubated in the unit. She was transferred to our facili ty from [facility], status post ground-level fall. She denied any loss of cons ciousness or any other injuries. She supposedly tripped and fell while helping a friend get up off t he floor and also ended up falling herself. Upon arrival to our facility, she was intubated due to r espiratory distress. She remains intubated in the unit at this time. There is currently no family m embers at bedside. We have been consulted for a right femoral neck fracture. PAST MEDICAL HISTORY: Significant for chronic obstructive pulmonary disease, hepatitis, bronchitis, pneumonia, atrial flutter, hypertension. PAST SURGICAL HISTORY: Significant for hysterectomy, hernia repair, tonsillectomy, abdominal surgery . SOCIAL HISTORY: The patient is a former smoker, who quit in 2005. Patient has previously denied any alcohol or drug history. FAMILY HISTORY: Reviewed and noncontributory. ALLERGIES: Include ASPIRIN, KETOROLAC, LEVOFLOXACIN, MORPHINE, PENICILLINS, and TRAMADOL. REVIEW OF SYSTEMS: A 10-point review of systems was unobtainable. The patient is intubated in the u nit at this time. PHYSICAL EXAMINATION: VITAL SIGNS: Blood pressure 92/54, heart rate of 108, temperature of 98.7, patient is mechanically v entilated at this time. GENERAL: The patient is sedated on a mechanical vent in the unit. HEENT: Head is normocephalic, atraumatic. NECK: Supple breathing controlled on a mechanical ventilator. EXTREMITIES: The right lower extremity was examined. The skin to the lateral thigh region and hip a ppears intact. There are no wounds or ecchymosis present. Right lower extremity distal pulses intac t. Foot warm to touch. Capillary refill 2 seconds. No significant swelling noted distally. IMAGING STUDIES: Including x-rays of the right hip show evidence of an impacted and displaced subcap ital femoral neck fracture. These were reviewed by me today. ASSESSMENT: Right femoral neck fracture. PLAN: At this time, the patient's medical status is being taken care of by Trauma Services. We woul d like to proceed with a right hip hemiarthroplasty for her right hip fracture; however, we will wait on clearance from the Trauma team to go forward with this. We hope to go forward with this procedur e tomorrow. In the meantime, we will await family to consult and discuss a plan of care. This was d iscussed with Dr. Cleary today.
[2018-02-22] MEDS: HYDROcodone/Acetaminophen 5/325 mg Tablet PO PRN ×2 (12:50→20:28)
[2018-02-22] MEDS: cefTRIAXone\\ROCEPHIN 1 GM in Sodium Chloride 0.9% 100 ML IVPB SCH (14:47)
[2018-02-22] MEDS ORDERED: Azithromycin 500 MG in Sodium Chloride 0.9% 250 ML 250 ML IVPB SCH (15:00)
[2018-02-22] MEDS ORDERED: Ipratropium Oral Inhaler (200 INHALATIONS) INH PRN (16:10)
--- NOTE | 2018-02-22 17:40 | PRG ---
DATE OF SERVICE: 02/22/2018 SUBJECTIVE: Ms. Salazar is sedated on mechanical ventilator support. She is tolerating FiO2 wean. W hen sedation is light, she moves all extremities and following commands. She is anxious pointing to the ET tube. Urinary output has been adequate. Her blood pressure, however, is a little soft on fen tanyl and propofol by continuous infusion. OBJECTIVE: VITAL SIGNS: This morning includes blood pressure 92/57, pulse 121, respiratory rate is 23, temperat ure 98.7 degrees Fahrenheit and oxygen saturation 92% on FiO2 of 30%. HEENT: Reveals pupils equal, round, reactive to light and accommodation. HEART: Reveals regular rate with sinus tachycardia. No murmurs or gallops auscultated. LUNGS: Clear to auscultation bilaterally. Breathing is regular and unlabored. ABDOMEN: Soft, nontender, nondistended. EXTREMITIES: Reveals 2+ radial and pedal pulses bilaterally. No ankle edema is present. NEUROLOGIC: Examination reveals no focal deficits present. LABORATORY DATA: Includes CBC with 8,000 white blood cells, hemoglobin and hematocrit 11.4 and 33.8 respectively, platelet count is 143,000. Metabolic profile: Sodium is 139, potassium 4.2, chloride is 104, bicarbonate 30, BUN 11, creatinine 0.63, glucose 140, magnesium 2.0 and phosphorus is 2.8. IMPRESSION: 1. Post-injury day #1, status post fall. 2. Mildly displaced impacted right femoral neck fracture. 3. Acute post-traumatic respiratory failure secondary to acute chronic obstructive pulmonary disease exacerbation. PLAN: 1. Wean ventilatory support and extubate the patient as indicated. 2. Continue with broad spectrum antibiotic therapy for right lower lobe pneumonia. 3. Continue with nonpharmacological VTE prophylaxis. Above findings and plan discussed with the patient who has noted aforementioned to the plan.
[2018-02-22] MEDS ORDERED: Ketorolac Tromethamine 15 MG/ML VIAL IVP SCH (18:00)
[2018-02-22] MEDS: Dronedarone HCl 400 MG TAB PO SCH (18:26)
[2018-02-23] MEDS: HYDROcodone/Acetaminophen 5/325 mg Tablet PO PRN ×5 (00:17→21:13)
[2018-02-23 05:02] LABS: #Basophils 0.1 thou/uL (0.0-0.2); #Lymphocytes 0.2 thou/uL (1.20-3.40); #Monocytes 0.3 thou/uL (0.11-0.59); #Neutrophils 5.7 thou/uL (1.40-6.50); %Lymphocytes 2.8 % (21.0-51.0); %Neutrophils 92.1 % (42.0-75.0); Hemoglobin 11.4 g/dL (12.0-16.0); Mean Corpuscular HGB CONC 33.8 g/dL (32.0-36.0); Mean Corpuscular Hemoglobin 32.1 pg (27.0-31.0); Mean Platelet Volume 7.9 fL (7.4-10.4); Platelet Count 132 thou/uL (130-400); RBC Distribution Width 11.6 % (11.5-14.5); Red Blood Cell (RBC) Count 3.56 mill/uL (4.20-5.40); White Blood Cell (WBC) Count 6.1 thou/uL (4.8-10.8)
[2018-02-23 05:16] LABS: Anion Gap 12 mmol/L (10-20); BUN (Urea Nitrogen) 14 mg/dL (9.8-20.1); Calc. Creatinine Clearance 87 mL/min (70-130); Calcium 8.7 mg/dL (7.8-10.44); Carbon Dioxide 26 mmol/L (22-29); Chloride 104 mmol/L (98-107); Estimated GFR-MDRD Greater than 90; Glucose 140 mg/dL (70-105); Phosphorus 3.2 mg/dL (2.3-4.7); Potassium 3.7 mmol/L (3.5-5.1); Sodium 138 mmol/L (136-145)
[2018-02-23] MEDS: Acetaminophen 1,000 MG in Premix Bag 1 BAG IVPB SCH ×3 (05:59→17:34)
--- NOTE | 2018-02-23 08:19 | PRG ---
DATE OF SERVICE: 02/23/2018 She is awake, alert, responsive. She is complaining of a cough, but no shortness of breath. PHYSICAL EXAMINATION: VITAL SIGNS: Sats are 99% on 2 liters, pulse 85, blood pressure 120/80, respirations 18. CHEST: Chest reveals decreased breath sounds, no wheezing. CARDIAC: Normal S1, S2. No gallops. ABDOMEN: Soft, no masses. LABORATORY: White count 6000, H&H 9 and 33, platelet count 33. IMPRESSION: 1. Respiratory failure. 2. Chronic obstructive pulmonary disease, stable. 3. Right hip fracture. 4. Cardiac arrhythmia. PLAN: The patient is scheduled for surgery today. I will continue present neb treatment, empiric an tibiotics, steroids. We will follow postop.
[2018-02-23] MEDS ORDERED: Spiriva 18 MCG CAP (Box of 5 Caps) INH SCH (09:00)
[2018-02-23] MEDS: Dronedarone HCl 400 MG TAB PO SCH ×2 (09:25→16:40)
[2018-02-23] MEDS: Losartan 25 MG TAB PO SCH (09:26)
[2018-02-23] MEDS: Lorazepam 1 MG TAB PO SCH (09:26)
[2018-02-23] MEDS: Lactated Ringer's 1,000 ML IV SCH (10:45)
[2018-02-23] MEDS ORDERED: Neomycin-Polymyxin 1 ML AMP ONE (12:00)
[2018-02-23] MEDS ORDERED: Bupivacaine 0.75% W/DEXTROSE 8.25% 2 ML AMP ONE (12:14)
[2018-02-23] MEDS ORDERED: Midazolam HCl 2 mg/2 ml Vial ONE (12:48)
[2018-02-23] MEDS ORDERED: Propofol 500 MG/50 ML VIAL ONE (12:50)
[2018-02-23] MEDS ORDERED: PROPOFOL 40 ML ONE (12:50)
[2018-02-23] MEDS ORDERED: Dexamethasone 20 MG/5 ML VIAL ONE (13:29)
[2018-02-23] MEDS ORDERED: PHENYLEPHRINE-NS 100 MCG/ML 10 ML SYRINGE ONE (13:29)
[2018-02-23] MEDS ORDERED: PROPOFOL 200 MG/20 ML VIAL ONE (13:29)
[2018-02-23] MEDS ORDERED: Clindamycin/D5W 900 mg/50 ml Premix Bag ONE (13:36)
[2018-02-23] MEDS ORDERED: Fentanyl 100 MCG/2 ML VIAL ONE ×3 (13:47→14:34)
[2018-02-23] MEDS: cefTRIAXone\\ROCEPHIN 1 GM in Sodium Chloride 0.9% 100 ML IVPB SCH (14:13)
--- NOTE | 2018-02-23 14:38 | RAD ---
RIGHT HIP SINGLE CROSS TABLE LATERAL VIEW: Date: 02-23-18 History: Post knee arthroplasty. Comparison: AP pelvis, same date. FINDINGS: There are post-surgical changes related to total right hip prosthesis. Subcutaneous emphysema is seen about the right hip and there are surgical clips seen overlying the right hip. IMPRESSION: Post-surgical changes related to recent placement right total hip prosthesis. POS: CHUCHO
--- NOTE | 2018-02-23 14:40 | RAD ---
AP PELVIS RADIOGRAPH: Date: 02-23-18 History: Post right hip hemiarthroplasty. Comparison: 02-21-18 FINDINGS: There has been interval placement of right total hip prosthesis when compared to the prior exam. No f racture or dislocation is seen. Skin clips are seen over the hip and there is subcutaneous emphysema on the right. Vascular calcification in the iliac and femoral arteries. Phleboliths overlie the pelvi s. IMPRESSION: Post-surgical changes related to recent placement of right total hip prosthesis. POS: CHUCHO
--- NOTE | 2018-02-23 15:51 | PRG ---
DATE OF SERVICE: 02/23/2018 SUBJECTIVE: Ms. Salazar is a 62-year-old woman post-admission day #2, status post fall sustaining a h ip fracture. The patient was admitted with acute respiratory failure and this is secondary to a COPD exacerbation. She was successfully extubated yesterday. Overnight, she has done well. She reports adequate pain control today. She is complaining of some cough, but denies any dyspnea. Urinary output has been adequate. OBJECTIVE: VITAL SIGNS: When seen this morning includes blood pressure 117/71, pulse 98, respiratory rate is 18 , maximum temperature in the last 24 hours is 98.6 degrees Fahrenheit, oxygen saturation this morning is 100% on 2 liters by nasal cannula oxygen. HEENT: Reveals normocephalic and atraumatic. NECK: She has no jugular venous distention noted. HEART: Reveals regular rate and rhythm. No murmurs or gallops auscultated. LUNGS: Reveals scattered rhonchi. Breathing regular and unlabored. ABDOMEN: Soft, nontender, nondistended. NEUROLOGIC: Reveals no focal neurological deficits present. LABORATORY DATA: Pertinent laboratory findings today includes CBC with 6100 white blood cells, hemog lobin and hematocrit stable at 11.4 and 33.8 respectively. Platelet count is also stable at 132,000. Metabolic profile, sodium 138, potassium 3.7, chloride is 104, bicarbonate 26, BUN 14, creatinine 0.6 2, glucose 140, magnesium 2.0, phosphorus 3.2. IMPRESSION: 1. Post-admission day #2, status post fall. 2. Right femoral neck fracture. 3. Resolved acute respiratory failure. PLAN: 1. Continue with bronchodilator therapy and broad spectrum antibiotic therapy for community-acquired pneumonia. 2. The patient goes to the operating room today for ORIF of the right hip fracture. 3. We will continue with nonpharmacological VTE prophylaxis until postoperative course.
[2018-02-23] MEDS: Clindamycin/D5W 900 MG in Premix Bag 1 BAG IVPB SCH ×2 (16:28→21:15)
--- NOTE | 2018-02-23 18:29 | OP ---
DATE OF OPERATION: 02/23/2018 OPERATION: Right hip hemiarthroplasty. PREOPERATIVE DIAGNOSIS: Right femoral neck fracture. POSTOPERATIVE DIAGNOSIS: Right femoral neck fracture. COMPLICATIONS: None. ESTIMATED BLOOD LOSS: 200 mL. SURGEON: Devan Cleary MD TOOL DRAWING CHECKER: Jason Montiel PA-C IMPLANTS: DePuy basic press-fit [place] stem size 5, 48-mm bipolar shell with +5 femoral head. INDICATIONS: Ms. Salazar is a 62-year-old female who has fallen. She fractured her right femoral nec k. She was indicated for hemiarthroplasty of the hip to restore mobility and relieve pain. Risks stewart ve been reviewed in detail. She has elected to proceed with the operation. DESCRIPTION OF OPERATION: Ms. Salazar was identified in the preoperative holding area. Her correct e xtremity was marked. She was carried to the operating room. She was positioned supine. General ane sthesia was induced. A multidisciplinary timeout was performed. The right lower extremity was prepp ed and draped in sterile fashion. We began the procedure with posterior approach to the hip. We dissected down to the subcutaneous tis sues to the fascia, which was incised. At this point, we exposed the short external rotators of the hip. These were subperiosteally divided from the proximal femur. We performed a capsulotomy. At th is point, we dislocated the femoral head and removed the broken femoral head. We then performed a ne w osteotomy of the femoral neck. Next, we prepared the femoral canal. We reamed and then broached u p to a size 5. This gave a good fit. We trialed off our broach. A +5 femoral head was appropriate for length. At this point, we thoroughly irrigated with copious lavage. We then impacted our final stem and bipo lar shell. The hip again was reduced. We closed our capsule and piriformis tendon with #5 Ethibond suture through drill holes. We then closed the fascia with #2 Vicryl suture followed by 2-0 Vicryl s uture and jason for the skin. A sterile dressing was applied. [facility]
[2018-02-24] MEDS: Lactated Ringer's 1,000 ML IV SCH ×3 (00:48→09:00)
[2018-02-24] MEDS: HYDROcodone/Acetaminophen 5/325 mg Tablet PO PRN ×5 (01:20→23:51)
[2018-02-24 05:54] LABS: #Lymphocytes 0.1 thou/uL (1.20-3.40); #Monocytes 0.3 thou/uL (0.11-0.59); #Neutrophils 4.2 thou/uL (1.40-6.50); %Basophils 0.8 % (0.0-1.0); %Eosinophils 0.2 % (0.0-10.0); %Lymphocytes 2.7 % (21.0-51.0); %Monocytes 7.1 % (0.0-10.0); %Neutrophils 89.2 % (42.0-75.0); Hemoglobin 9.8 g/dL (12.0-16.0); Mean Corpuscular HGB CONC 34.7 g/dL (32.0-36.0); Mean Corpuscular Hemoglobin 32.9 pg (27.0-31.0); Mean Corpuscular Volume 94.9 fL (78.0-98.0); Mean Platelet Volume 7.7 fL (7.4-10.4); Platelet Count 124 thou/uL (130-400); RBC Distribution Width 11.6 % (11.5-14.5); Red Blood Cell (RBC) Count 2.98 mill/uL (4.20-5.40); White Blood Cell (WBC) Count 4.8 thou/uL (4.8-10.8)
[2018-02-24 06:15] LABS: Anion Gap 9 mmol/L (10-20); BUN (Urea Nitrogen) 13 mg/dL (9.8-20.1); Calc. Creatinine Clearance 87 mL/min (70-130); Calcium 8.7 mg/dL (7.8-10.44); Carbon Dioxide 34 mmol/L (22-29); Chloride 104 mmol/L (98-107); Estimated GFR-MDRD Greater than 90; Glucose 150 mg/dL (70-105); Magnesium 1.9 mg/dL (1.6-2.6); Potassium 4.3 mmol/L (3.5-5.1); Sodium 143 mmol/L (136-145)
[2018-02-24] MEDS: Losartan 25 MG TAB PO SCH (09:01)
[2018-02-24] MEDS: Dronedarone HCl 400 MG TAB PO SCH ×2 (09:01→16:42)
[2018-02-24] MEDS: Lorazepam 1 MG TAB PO SCH (09:01)
[2018-02-24] MEDS: Enoxaparin Sodium 40 MG/0.4 ML SYRINGE SC SCH (09:02)
[2018-02-24] MEDS ORDERED: Acetaminophen 500 MG TAB PO PRN (11:59)
--- NOTE | 2018-02-24 18:04 | PRG ---
DATE OF SERVICE: 02/24/2018 SUBJECTIVE: This morning, she is better. She is less short of breath. OBJECTIVE: VITAL SIGNS: Sats are 95% on 2 liters, respirations 20, temperature 98.7, blood pressure 119/70. CHEST: Decreased breath sounds. No wheezing. CARDIAC: Normal S1, S2. No gallops. ABDOMEN: Soft, no masses. LABORATORY DATA: Electrolytes are normal. White count is unremarkable. H and H is 9 and 28. IMPRESSION: 1. Chronic obstructive pulmonary disease, baseline. 2. Fractured hip. PLAN: Pulmonary-burris, she is much improved. I will consider discontinuing the antibiotics, steroids. Continue neb treatments. Hopefully, she co uld be transferred to rehab.
[2018-02-24] MEDS: Famotidine 20 MG TAB PO SCH (21:06)
[2018-02-24] MEDS: Senokot S 8.6-50 MG TAB PO SCH (21:06)
--- NOTE | 2018-02-24 22:40 | PRG ---
DATE OF SERVICE: 02/24/2018 ATTENDING PHYSICIAN: Dr. Steve Davila. SUBJECTIVE: Ms. Salazar is a 62-year-old female, who had a ground level fall with right femoral neck fracture. She was transferred to our facility from [facility]. She had to be intubated upon arrival to our facility due to chronic obstructive pulmonary disease exacerbation. She was subs equently extubated and taken to the operating room for fixation of her hip fracture. She is now post operative day #1, status post right hip hemiarthroplasty. She reports pain is well controlled. She does report that she has not had bowel movement since admission. OBJECTIVE: VITAL SIGNS: Temperature 97.9, pulse 95, blood pressure 119/70, respirations 20, and O2 sat 95% on 2 liters nasal cannula. GENERAL: Well-nourished, well-developed female lying in bed, in no acute distress. HEENT: Normocephalic, atraumatic. HEART: Regular rate and rhythm. LUNGS: Breathing even unlabored. ABDOMEN: Soft, nontender, nondistended. NEUROLOGIC: GCS of 15. LABORATORY DATA: CBC: WBC 4.8, RBC 2.98, hemoglobin 9.8 down from 11.4 yesterday, hematocrit 28.3 d own from 33.8 yesterday, platelets 11.6. Chemistry: Sodium 143, potassium 4.3, chloride 104, carbon dioxide 34, BUN 13, creatinine 0.62, glucose 150, calcium 8.7, phosphorus 3.0, magnesium 1.9. ASSESSMENT: 1. Postop day #1, status post open reduction and internal fixation, right hip fracture. 2. Chronic obstructive pulmonary disease, currently being followed by Pulmonology. 3. Acute traumatic pain well controlled. 4. Resolved acute respiratory failure. PLAN: 1. Continue PT and OT. 2. Antibiotics discontinued per Pulmonology recommendations. 3. Lovenox for DVT prophylaxis. 4. Hydrocodone for oral analgesia. 5. Continue home medications as ordered. 6. Start bowel regimen. 7. Case management following for discharge planning. 8. Pepcid for gastritis prophylaxis. The patient was seen and examined with Dr. Davila, who agrees with plan.
[2018-02-25] MEDS: HYDROcodone/Acetaminophen 5/325 mg Tablet PO PRN ×5 (04:13→22:34)
[2018-02-25 07:57] LABS: #Eosinphils 0.1 thou/uL (0.0-0.7); #Lymphocytes 0.5 thou/uL (1.20-3.40); #Monocytes 0.5 thou/uL (0.11-0.59); #Neutrophils 4.1 thou/uL (1.40-6.50); %Lymphocytes 9.1 % (21.0-51.0); %Monocytes 10.1 % (0.0-10.0); %Neutrophils 79.8 % (42.0-75.0); Hemoglobin 11.5 g/dL (12.0-16.0); Mean Corpuscular HGB CONC 33.9 g/dL (32.0-36.0); Mean Corpuscular Hemoglobin 32.1 pg (27.0-31.0); Mean Corpuscular Volume 94.9 fL (78.0-98.0); Mean Platelet Volume 7.1 fL (7.4-10.4); Platelet Count 149 thou/uL (130-400); RBC Distribution Width 11.7 % (11.5-14.5); Red Blood Cell (RBC) Count 3.58 mill/uL (4.20-5.40); White Blood Cell (WBC) Count 5.2 thou/uL (4.8-10.8)
[2018-02-25 08:12] LABS: Anion Gap 11 mmol/L (10-20); BUN (Urea Nitrogen) 11 mg/dL (9.8-20.1); Calc. Creatinine Clearance 84 mL/min (70-130); Calcium 8.8 mg/dL (7.8-10.44); Carbon Dioxide 34 mmol/L (22-29); Chloride 102 mmol/L (98-107); Estimated GFR-MDRD Greater than 90; Glucose 130 mg/dL (70-105); Magnesium 1.9 mg/dL (1.6-2.6); Phosphorus 2.7 mg/dL (2.3-4.7); Potassium 3.7 mmol/L (3.5-5.1); Sodium 143 mmol/L (136-145)
[2018-02-25] MEDS: Enoxaparin Sodium 40 MG/0.4 ML SYRINGE SC SCH (08:42)
[2018-02-25] MEDS: Senokot S 8.6-50 MG TAB PO SCH ×2 (08:42→21:12)
[2018-02-25] MEDS: Polyethylene Glycol 3350 17 GM Packet PO SCH (08:42)
[2018-02-25] MEDS: Dronedarone HCl 400 MG TAB PO SCH ×2 (08:45→18:09)
[2018-02-25] MEDS: Lorazepam 1 MG TAB PO SCH (08:45)
[2018-02-25] MEDS: Famotidine 20 MG TAB PO SCH ×2 (08:45→21:12)
[2018-02-25] MEDS: Losartan 25 MG TAB PO SCH (08:45)
[2018-02-25] MEDS ORDERED: Potassium Phosphate 15 MMOL in Sodium Chloride 0.9% 250 ML 250 ML IVPB SCH (11:00)
--- NOTE | 2018-02-25 13:51 | PRG ---
DATE OF SERVICE: 02/25/2018 ATTENDING PHYSICIAN: Dr. Steve Davila. SUBJECTIVE: Ms. Salazar is a 62-year-old female, who had a ground-level fall with right femoral neck fracture. She is postoperative day #2, status post right hip hemiarthroplasty. She reports pain is well controlled. Bowel regimen was increased yesterday. She reports she is now passing flatus and h as had a small bowel movement. OBJECTIVE: VITAL SIGNS: Temperature 98.1, pulse 89, respirations 18, O2 sat 96% on room air, blood pressure 110 /72. CONSTITUTIONAL: Well-nourished, well-developed female, sitting up in chair, in no acute distress, no ntoxic appearing. HEENT: Normocephalic, atraumatic. CARDIOVASCULAR: Regular rate and rhythm. Heart sounds normal. LUNGS: Respirations even and unlabored. No respiratory distress. ABDOMEN: Soft, nontender, nondistended. NEUROLOGIC: GCS of 15. LABORATORY DATA: CBC: WBC 5.2, RBC 3.58, hemoglobin 11.5, hematocrit 34.0, platelets 149. Chemistr y: Sodium 143, potassium 3.7, chloride 102, carbon dioxide 34, BUN 11, creatinine 0.64, glucose 130, calcium 8.8, phosphorus 2.7, magnesium 1.9. ASSESSMENT: 1. Status post ground-level fall. 2. Postoperative day #2, status post open reduction and internal fixation of right hip fracture. 3. Chronic obstructive pulmonary disease, currently being followed by Pulmonology. Discussed with Lucy Savage this morning. The patient may be discharged to rehabilitation when bed available. 4. Acute traumatic pain, well controlled. 5. Resolved acute respiratory failure. PLAN: 1. Continue PT and OT. 2. Continue oral analgesia as ordered. 3. Continue daily bowel regimen. 4. Case management following for discharge planning. Anticipate patient will need inpatient rehabil itation. The patient was discussed with Dr. Davila, at the time of this dictation.
--- NOTE | 2018-02-25 13:56 | EKG ---
Test Reason : Blood Pressure : / mmHG Vent. Rate : 136 BPM Atrial Rate : 136 BPM P-R Int : 146 ms QRS Dur : 078 ms QT Int : 368 ms P-R-T Axes : 069 081 067 degrees QTc Int : 553 ms Sinus tachycardia Nonspecific ST and T wave abnormality Abnormal ECG Confirmed by BRUNO HECK D.O. ([id number]), commissioning editor EDITA BELL ([id number]) on 02/25/2018 1:56:28 PM Referred By: Confirmed By:BRUNO HECK D.O.
--- NOTE | 2018-02-25 13:57 | PRG ---
DATE OF SERVICE: 02/25/2018 SUBJECTIVE: This morning, she is better, less short of breath. OBJECTIVE: VITAL SIGNS: Sats are 96% on 2 liters, temperature is 98, pulse 89, respirations 18, blood pressure is 110/72. CHEST: Decreased breath sounds, no wheezing. CARDIAC: Normal S1 and S2. No gallops. ABDOMEN: Soft, no masses. IMPRESSION: Chronic obstructive pulmonary disease, stable. Fractured hip, stable. PLAN: She can be sent to the rehabilitation any time. She is off all steroids. She is doing well.
[2018-02-26] MEDS: HYDROcodone/Acetaminophen 5/325 mg Tablet PO PRN ×6 (02:30→23:00)
[2018-02-26 06:49] LABS: #Eosinphils 0.2 thou/uL (0.0-0.7); #Lymphocytes 0.6 thou/uL (1.20-3.40); #Monocytes 0.4 thou/uL (0.11-0.59); #Neutrophils 2.2 thou/uL (1.40-6.50); %Lymphocytes 17.4 % (21.0-51.0); %Monocytes 11.3 % (0.0-10.0); %Neutrophils 64.3 % (42.0-75.0); Hemoglobin 10.5 g/dL (12.0-16.0); Mean Corpuscular HGB CONC 33.6 g/dL (32.0-36.0); Mean Corpuscular Hemoglobin 32.3 pg (27.0-31.0); Mean Corpuscular Volume 95.9 fL (78.0-98.0); Mean Platelet Volume 6.6 fL (7.4-10.4); Platelet Count 153 thou/uL (130-400); RBC Distribution Width 11.7 % (11.5-14.5); Red Blood Cell (RBC) Count 3.24 mill/uL (4.20-5.40); White Blood Cell (WBC) Count 3.5 thou/uL (4.8-10.8)
[2018-02-26 06:59] LABS: Anion Gap 8 mmol/L (10-20); BUN (Urea Nitrogen) 10 mg/dL (9.8-20.1); Calc. Creatinine Clearance 83 mL/min (70-130); Calcium 8.6 mg/dL (7.8-10.44); Carbon Dioxide 37 mmol/L (22-29); Chloride 101 mmol/L (98-107); Estimated GFR-MDRD Greater than 90; Glucose 91 mg/dL (70-105); Magnesium 1.7 mg/dL (1.6-2.6); Phosphorus 4.2 mg/dL (2.3-4.7); Sodium 142 mmol/L (136-145)
[2018-02-26] MEDS ORDERED: Magnesium Sulfate 2 GM in Sodium Chloride 0.9% 100 ML IVPB SCH (08:30)
[2018-02-26] MEDS: Senokot S 8.6-50 MG TAB PO SCH ×2 (08:50→21:26)
[2018-02-26] MEDS: Losartan 25 MG TAB PO SCH (08:50)
[2018-02-26] MEDS: Enoxaparin Sodium 40 MG/0.4 ML SYRINGE SC SCH (08:50)
[2018-02-26] MEDS: Dronedarone HCl 400 MG TAB PO SCH ×2 (08:50→17:29)
[2018-02-26] MEDS: Lorazepam 1 MG TAB PO SCH (08:51)
[2018-02-26] MEDS: Famotidine 20 MG TAB PO SCH ×2 (08:51→21:26)
[2018-02-26] MEDS: Bisacodyl 10 MG SUPP PR SCH (08:51)
[2018-02-26] MEDS: Polyethylene Glycol 3350 17 GM Packet PO SCH (08:51)
--- NOTE | 2018-02-26 19:13 | PRG ---
DATE OF SERVICE: 02/26/2018 ATTENDING PHYSICIAN: Dr. Steve Davila. SUBJECTIVE: Ms. Salazar is a 62-year-old female who had a ground-level fall with a right femoral neck fracture. She is postoperative day #3 status post right hemiarthroplasty. She reports the pain is well controlled. She is mobilizing around the floor with physical and occupational therapy. Bowel r egimen was increased 2 days ago. She is now having regular bowel movements. OBJECTIVE: VITAL SIGNS: Temperature 98.2, pulse 85, respirations 16, O2 sat 93% on 2 liters, blood pressure 129 /65. CONSTITUTIONAL: Well-developed, well-nourished female sitting in bed, no acute distress. HEENT: Normocephalic, atraumatic. CARDIOVASCULAR: Regular rate and rhythm. Heart sounds normal. LUNGS: Respirations even and unlabored. No respiratory distress. ABDOMEN: Soft, nontender, nondistended. NEUROLOGIC: GCS of 15. LABORATORY DATA: CBC: WBC 3.5, RBC 3.34, hemoglobin 10.5, hematocrit 31.1, platelets 153. Chemistr y: Sodium 142, potassium 4.0, chloride 101, carbon dioxide 37, BUN 10, creatinine 0.65, glucose 91, calcium 8.6, phosphorus 4.2, magnesium 1.7. ASSESSMENT: 1. Status post ground level fall. 2. Postoperative day #3, status post open reduction and internal fixation of right hip fracture. 3. Chronic obstructive pulmonary disease, currently being followed by Pulmonology. 4. Acute traumatic pain well controlled. 5. Mobilizing with physical and occupational therapy. PLAN: 1. Continue PT and OT. 2. Continue oral analgesia as ordered. 3. Continue daily bowel regimen. 4. Replace electrolytes as indicated. 5. Case management following the discharge planning and anticipate patient will be discharged to [facility] rehabilitation. The patient was reviewed with Dr. Davila who agrees with plan.
[2018-02-26] MEDS: Cyclobenzaprine 10 MG TAB PO PRN (22:59)
[2018-02-27 04:23] LABS: #Eosinphils 0.3 thou/uL (0.0-0.7); #Lymphocytes 0.5 thou/uL (1.20-3.40); #Monocytes 0.4 thou/uL (0.11-0.59); #Neutrophils 2.7 thou/uL (1.40-6.50); %Eosinophils 6.6 % (0.0-10.0); %Lymphocytes 12.7 % (21.0-51.0); %Monocytes 11.3 % (0.0-10.0); %Neutrophils 69.4 % (42.0-75.0); Hemoglobin 11.4 g/dL (12.0-16.0); Mean Corpuscular HGB CONC 34.2 g/dL (32.0-36.0); Mean Corpuscular Hemoglobin 32.2 pg (27.0-31.0); Mean Platelet Volume 6.4 fL (7.4-10.4); Platelet Count 188 thou/uL (130-400); RBC Distribution Width 11.7 % (11.5-14.5); Red Blood Cell (RBC) Count 3.55 mill/uL (4.20-5.40); White Blood Cell (WBC) Count 3.9 thou/uL (4.8-10.8)
[2018-02-27 04:31] LABS: Anion Gap 13 mmol/L (10-20); BUN (Urea Nitrogen) 8 mg/dL (9.8-20.1); Calc. Creatinine Clearance 79 mL/min (70-130); Calcium 8.9 mg/dL (7.8-10.44); Carbon Dioxide 33 mmol/L (22-29); Chloride 97 mmol/L (98-107); Estimated GFR-MDRD 88; Glucose 87 mg/dL (70-105); Magnesium 1.8 mg/dL (1.6-2.6); Phosphorus 4.9 mg/dL (2.3-4.7); Sodium 139 mmol/L (136-145)
[2018-02-27] MEDS: HYDROcodone/Acetaminophen 5/325 mg Tablet PO PRN ×5 (06:48→23:02)
[2018-02-27] MEDS: Polyethylene Glycol 3350 17 GM Packet PO SCH (08:46)
[2018-02-27] MEDS: Lorazepam 1 MG TAB PO SCH (08:46)
[2018-02-27] MEDS: Bisacodyl 10 MG SUPP PR SCH (08:47)
[2018-02-27] MEDS: Enoxaparin Sodium 40 MG/0.4 ML SYRINGE SC SCH (08:47)
[2018-02-27] MEDS: Senokot S 8.6-50 MG TAB PO SCH ×2 (08:47→20:27)
[2018-02-27] MEDS: Famotidine 20 MG TAB PO SCH ×2 (08:47→20:27)
[2018-02-27] MEDS: Losartan 25 MG TAB PO SCH (08:47)
[2018-02-27] MEDS: Dronedarone HCl 400 MG TAB PO SCH ×2 (08:47→17:06)
[2018-02-27] MEDS: Cyclobenzaprine 10 MG TAB PO PRN (09:50)
--- NOTE | 2018-02-27 10:16 | PRG ---
DATE OF SERVICE: 02/26/2018 SUBJECTIVE: This morning, she is better. She is walking with the help of a walker though. OBJECTIVE: VITAL SIGNS: Sats are 90% on 2 liters, blood pressure 129/65, pulse 85 and temperature 98. CHEST: Decreased breath sounds, no wheezing. CARDIAC: Normal S1 and S2. No gallops. ABDOMEN: Soft. No masses. LABORATORY DATA: Electrolytes are normal. IMPRESSION: Chronic obstructive pulmonary disease with fractured hip. DISPOSITION: Transfer to [place] tomorrow. Pulmonary will follow at a distance. Please call if any questions.
--- NOTE | 2018-02-27 20:17 | PRG ---
DATE OF SERVICE: 02/27/2018 ATTENDING PHYSICIAN: Dr. Steve Davila. SUBJECTIVE: Ms. Salazar is a 62-year-old female who had a ground level fall with a right femoral neck fracture. She is postoperative day #4 status post right hemiarthroplasty. She reports the pain is well controlled. She is mobilizing around the floor with physical and occupational therapy. She is waiting to be accepted to rehabilitation. She is medically cleared to discharge to rehab once accept ance is gained. OBJECTIVE: VITAL SIGNS: Temperature 98, pulse 93, respirations 18, O2 sat 97% room air, blood pressure 105/62. CONSTITUTIONAL: Well-developed, well-nourished female sitting up in bed in no acute distress. HEENT: Normocephalic, atraumatic. CARDIOVASCULAR: Regular rate and rhythm. Heart sounds normal. LUNGS: Respirations even and unlabored. No respiratory distress. ABDOMEN: Soft, nontender, nondistended. NEUROLOGIC: GCS 15. Awake, alert and oriented x3. LABORATORY DATA: CBC: WBC 3.9, RBC 3.55, hemoglobin 11.4, hematocrit 33.4, platelets 188. Chemistr y: Sodium 139, potassium 4.0, chloride 97, carbon dioxide 33, BUN 8, creatinine 0.68, glucose 87, ca lcium 8.9, phosphorus 4.9, magnesium 1.8. ASSESSMENT: 1. Status post ground level fall. 2. Postoperative day #2, status post ORIF of right hip. 3. Chronic obstructive pulmonary disease, currently being followed by Pulmonology. 4. Acute traumatic pain well controlled. 5. Mobilizing with physical and occupational therapy. PLAN: 1. Continue physical and occupational therapy while patient is in hospital. 2. Continue oral analgesia. 3. Continue daily bowel regimen. 4. Case management following for discharge planning. Anticipate patient will be discharged to [facility] facility. The patient is medically cleared to discharge to rehabilitation facility once a cceptance is gained. Anticipate next 1-2 days. The patient was seen and examined with Dr. Davila, who agrees with plan.
[2018-02-28] MEDS: HYDROcodone/Acetaminophen 5/325 mg Tablet PO PRN ×4 (03:08→12:11)
[2018-02-28] MEDS: Famotidine 20 MG TAB PO SCH (09:05)
[2018-02-28] MEDS: Losartan 25 MG TAB PO SCH (09:05)
[2018-02-28] MEDS: Dronedarone HCl 400 MG TAB PO SCH (09:06)
[2018-02-28] MEDS: Senokot S 8.6-50 MG TAB PO SCH (09:07)
[2018-02-28] MEDS: Polyethylene Glycol 3350 17 GM Packet PO SCH (09:07)
[2018-02-28] MEDS: Enoxaparin Sodium 40 MG/0.4 ML SYRINGE SC SCH (09:11)
[2018-02-28 09:54] LABS: Anion Gap 7 mmol/L (10-20); BUN (Urea Nitrogen) 10 mg/dL (9.8-20.1); Calc. Creatinine Clearance 79 mL/min (70-130); Calcium 8.8 mg/dL (7.8-10.44); Carbon Dioxide 35 mmol/L (22-29); Chloride 99 mmol/L (98-107); Estimated GFR-MDRD 88; Glucose 109 mg/dL (70-105); Magnesium 1.9 mg/dL (1.6-2.6); Phosphorus 3.8 mg/dL (2.3-4.7); Potassium 3.8 mmol/L (3.5-5.1); Sodium 137 mmol/L (136-145)
[2018-02-28] MEDS: Bisacodyl 10 MG SUPP PR SCH (12:06)
[2018-02-28] MEDS: Lorazepam 1 MG TAB PO SCH (12:06)
[2018-02-28 12:40] VITALS: BP 133/65; TEMP 98.4
--- NOTE | 2018-03-01 06:23 | DIS ---
DATE OF ADMISSION: 02/21/2018 DATE OF DISCHARGE: 02/28/2018 ADMISSION DIAGNOSES: 1. Status post ground level fall. 2. Right femoral neck fracture. 3. Acute respiratory failure. 4. Chronic obstructive pulmonary disease with acute exacerbation. 5. Right lower lobe pneumonia. 6. Hypovolemia. 7. Hypokalemia. DISCHARGE DIAGNOSES: 1. Status post ground level fall. 2. Right femoral neck fracture. 3. Acute respiratory failure, resolved. 4. Chronic obstructive pulmonary disease with acute exacerbation, improved. 5. Right lower lobe pneumonia, improved. 6. Hypovolemia, resolved. 7. Hypokalemia, resolved. CONSULTANTS: Dr. Cleary, Orthopedic Surgery; Dr. Savage, Pulmonary/Critical Care Medicine. PROCEDURE: On 02/23/2018, right hip hemiarthroplasty with Dr. Cleary. HOSPITAL COURSE: Ms. Castro Salazar is a 62-year-old female who presented to [facility] as a trans abby from [facility] after a ground level fall. She had a medical history significant fo r COPD. She was in acute respiratory failure with evidence of COPD exacerbation upon arrival to our emergency room and was intubated prior to admission. She was treated with a course of antibiotics an d steroids. The patient was extubated on 02/22/2018 and underwent operative intervention to her inju ry on 02/23/2018. Postoperatively, the patient did well. Her pulmonary status continued to improve. She worked with PT and OT. She was tolerating a general diet. She was medically stable for discha rge and accepted to care home facility in [place] on 02/28/2018. DISCHARGE DISPOSITION: [facility]. DISCHARGE CONDITION: Fair. PHYSICAL EXAMINATION: VITAL SIGNS: Temperature 98.3, pulse 83, respirations 18, O2 sat 92-94% on 2 liters nasal cannula, b lood pressure 133/65. GENERAL: A well-developed female, in no acute distress, sitting in wheelchair out of bed. PULMONARY: Normal work of breathing, symmetric rise. CARDIOVASCULAR: Regular rate and rhythm. GASTROINTESTINAL: Abdomen is soft, nontender, nondistended. MUSCULOSKELETAL: Moves all extremities. NEUROLOGIC: No focal deficit is noted. DISCHARGE INSTRUCTIONS: Discharge instructions were provided to the patient and the accepting facili ty. She is to maintain hip precautions. She should continue PT and OT. She should remain on oxygen and wean as tolerated to her home dose. DISCHARGE MEDICATION: Discharge medication reconciliation was performed and is as documented in the electronic medical record a list of which was provided to the accepting facility. FOLLOWUP APPOINTMENTS: The patient should follow up with her primary care provider in 7-10 days. Micheline muller should follow up with Dr. Savage, her pulmonary physician as directed by their team. She is to follo w up with Orthopedic Surgery approximately 10 days for wound check. She does not need to follow up w sosa Davila or Trauma Services formally, but may call our office with any questions. This is merel y a summary of the patient's hospitalization. For more in-depth information, please see her medical record in its entirety.
== END 2018-02-28 15:12 | DRG 469 ==
LOC: ERS 11:19 → CCU 18:21 → SURG A 02-23 15:35
PROVIDERS: ADMIT Surgery; ATTEND Surgery
PROC: 5A1935Z Respiratory Ventilation, Less than 24 Consecutive Hours (ICD-10-PCS; 2018-02-21)
PROC: 0BH17EZ Insertion of Endotracheal Airway into Trachea, Via Natural or Artificial Opening (ICD-10-PCS; 2018-02-21)
PROC: 0SRR01A Replacement of Right Hip Joint, Femoral Surface with Metal Synthetic Substitute, Uncemented, Open Approach (ICD-10-PCS; principal; 2018-02-23)
DX: S72.011A Unspecified intracapsular fracture of right femur, initial encounter for closed fracture (principal); J96.00 Acute respiratory failure, unspecified whether with hypoxia or hypercapnia; J18.9 Pneumonia, unspecified organism; J44.1 Chronic obstructive pulmonary disease with (acute) exacerbation; J44.0 Chronic obstructive pulmonary disease with (acute) lower respiratory infection; I10 Essential (primary) hypertension; E87.6 Hypokalemia; G89.11 Acute pain due to trauma; I48.91 Unspecified atrial fibrillation; Z99.81 Dependence on supplemental oxygen; Z87.891 Personal history of nicotine dependence; Z88.1 Allergy status to other antibiotic agents; Z88.5 Allergy status to narcotic agent; Z88.0 Allergy status to penicillin; Z79.82 Long term (current) use of aspirin; Z79.899 Other long term (current) drug therapy; W01.0XXA Fall on same level from slipping, tripping and stumbling without subsequent striking against object, initial encounter
CPT/HCPCS: 31500; 36415; 36556; 70450; 71045; 72170; 80048; 80053; 82330; 82553; 82803; 82805; 83605; 83735; 84100; 84484; 85025; 85610; 85730; 86850; 86900; 86901; 87040; 87070; 87086; 87205; 93005; 93010; 94002; 94003; 94640; 94660; 96365; 96366; 96367; 96368; 96375; G0390; G8978-GP-CK; G8979-GP-CJ; G8987-GO-CM; G8988-GO-CJ; J0131; J0456; J0696; J1100; J1650; J2060; J2250; J2704; J2920; J2930; J3010; J3475; J3480; J3490; J7050; J7620

== ENCOUNTER 2020-07-05 02:04 | Inpatient (IN) | payer MEDICARE, OTHER ==
[2020-07-05 02:46] VITALS: BMI 20.5
[2020-07-05] MEDS ORDERED: Sodium Chloride 0.9% 500 ML IV SCH (03:45)
--- NOTE | 2020-07-05 04:04 | PDOC.HHP ---
Hospitalist HPI - History of Present Illness History of Present Illness: DATE OF ADMISSION: 07/05/2020 TIME OF ASSESSMENT: 0300 CHIEF COMPLAINT: Abdominal pain and bright red blood per rectum HPI:Patient states she recently underwent an EGD as an outpatient on 07/03/2020 due to persisting abdominal discomfort. She was told she had "inflammation" and was prescribed a PPI. She states she felt some discomfort and abdominal bloating later in the evening. She felt like she had to have a bowel movement and took some prune juice before bed. States she woke up at 2am with severe abdominal discomfort. She attempted to have a bowel movement and reports having a syncopal episode. She is unsure how long she was out for but woke up on the ground. Denies any nausea or vomiting. States she felt flushed. She called for an ambulance and was taken to [facility] ED where she had work-up done and was told she had inflammation. She states she was in and out of the ED all day. She received an enema and then developed rectal bleeding. She was about to be transferred to [facility] for admission at but opted to come to [facility]. Patient reports having diffuse abdominal discomfort which was relieved by Fentan yl given in the ED. She is requesting more IV pain meds and says she is unable to tolerate PO meds. ED Course: WCC 11.8. Glucose 117, Na+ 137, K+ 3.2, T. Bili 0.4, Alk phos 88. Lactic acid 1. Trop negative. WCC 11.8, Hgb 13.3, Hct 38. Platelets 264. She had an EKG done showing sinus tachycardia with a HR of 124. CT Abdomen showed nonspecific colitis involving the left colon. She received 2 L of LR. Fentanyl 50 mcg was given for pain. PMH: 1. COPD on O2 at home. 2. Previous tobacco user. 3. Bronchitis. 4. CHF 5. History of DVT, right leg 6. Dysphagia. 7. Hepatitis C 8. Hypertension. 9. History of a. flutter. PAST SURGICAL HISTORY: 1. x 2 2. Abdominal hernia repair 3. Recent EGD 4. Hysterectomy 5. Tonsillectomy 6. Bilateral wrist surgery FAMILY HISTORY: Mother diagnosed with lung cancer as well as he rfather and brother. Her father had HTN and CHF. SOCIAL HISTORY: Patient lives alone. She smoked in the past but quit in 2006. No alcohol use or drug use. ALLERGIES: Toradol Tramadol Balcofen Levaquin Penicillin Tizanidine CURRENT MEDICATIONS: Aspirin 81 mg PO daily Flexeril 10 mg PO daily Denosumab Dicyclomine 20 mg PO daily Lexapro 5 mg PO daily Famotidine 20 mg PO bid Flonase Gabapentin 800 mg Hydrocodone 10/325 mg Atrovent Lorazepam 1 mg PO Q8H prn. Losartan 25 mg daily Medrol dose pack Multaq 400 mg BID Zofran 4 mg ODT Miralax 17 g daily Carafate - Exam General Appearance: NAD, awake alert General - other findings: Temp 99, RR 18, O2 sat 94% on RA, HR 100, BP 109/68 Eye: PERRL, anicteric sclera ENT: normocephalic atraumatic, no oropharyngeal lesions Neck: supple, no lymphadenopathy Heart: RRR, no murmur, no gallops, no rubs, normal peripheral pulses Respiratory: CTAB, no wheezes, no rales, no ronchi, normal chest expansion Gastrointestinal: soft, non-distended, tender to palpation Gastrointestinal - other findings: no pain w/pushing abd w/stethoscope,then severely tender on light palpation Extremities: no edema Skin: normal turgor, no lesions, no rashes Neurological: cranial nerve grossly intact, normal sensation to touch, no weakness Musculoskeletal: normal tone, normal strength, no muscle wasting Psychiatric: normal affect, normal behavior, A&O x 3 Hospitalist Results - Labs Result Diagrams: 07/05/20 03:51 - Radiology Interpretation CT scan - abdomen Status: report reviewed by vt Hospitalist H&P A/P - Problem (1) Bright red blood per rectum Code(s): K62.5 - HEMORRHAGE OF ANUS AND RECTUM Status: Acute (2) Abdominal pain Code(s): R10.9 - UNSPECIFIED ABDOMINAL PAIN Status: Acute (3) Constipation Code(s): K59.00 - CONSTIPATION, UNSPECIFIED Status: Chronic (4) Anxiety Code(s): F41.9 - ANXIETY DISORDER, UNSPECIFIED Status: Chronic (5) COPD (chronic obstructive pulmonary disease) Status: Chronic (6) CHF (congestive heart failure) Code(s): I50.9 - HEART FAILURE, UNSPECIFIED Status: Chronic (7) Hypertension Code(s): I10 - ESSENTIAL (PRIMARY) HYPERTENSION Status: Chronic - Plan Plan: Patient with abdominal pain prompting recent EGD after which she developed abdo live bloating. She attempted to have a bowel movement and developed abdominal pain without stools at home. Given enema in the ED and developed bright red blood per rectum. Did not have blood in stools days prior nor melena. Possible tear due to enema however complaining of diffuse abdominal discomfort. CT showed nonspecific colitis. She is requesting IV pain meds and very anxious. Exam inconsistent as I was able to palpate abdomen when distracted, however later with voluntary guarding and pain disproportionate to exam. Repeat labs including CBC, LFTs, Lipase, Lactic acid and lytes. GI consult Keep NPO Protonix 40 mg IV BID Hx of HF, will give small bolus of 250 mLs NS prior to pain meds. Morphine 1 mg IV if BP improves BP on low side, continue to monitor Hold antihypertensives. Hold pharmacoprpohylaxis for DVT given bleeding. Check stool for occult blood. Monitor O2 sats Resume inhalers. Resume home meds once verified, as appropriate. CODE STATUS FULL Case discussed with Dr. Lacy who agrees with plan as above.
[2020-07-05 04:23] LABS: #Eosinphils 0.1 thou/uL (0.0-0.7); #Lymphocytes 1.1 thou/uL (1.20-3.40); #Monocytes 0.9 thou/uL (0.11-0.59); #Neutrophils 6.5 thou/uL (1.40-6.50); %Basophils 0.4 % (0.0-1.0); %Eosinophils 0.7 % (0.0-10.0); %Lymphocytes 13.1 % (21.0-51.0); %Monocytes 10.1 % (0.0-10.0); %Neutrophils 75.6 % (42.0-75.0); Hemoglobin 12.5 g/dL (12.0-16.0); Mean Corpuscular HGB CONC 32.9 g/dL (32.0-36.0); Mean Corpuscular Hemoglobin 30.4 pg (27.0-31.0); Mean Corpuscular Volume 92.4 fL (78.0-98.0); Mean Platelet Volume 8.4 fL (7.4-10.4); Platelet Count 200 thou/uL (130-400); RBC Distribution Width 11.6 % (11.5-14.5); Red Blood Cell (RBC) Count 4.11 mill/uL (4.20-5.40); White Blood Cell (WBC) Count 8.6 thou/uL (4.8-10.8)
[2020-07-05 04:29] LABS: Lactic Acid 0.7 mmol/L (0.5-2.2)
[2020-07-05] MEDS ORDERED: Sodium Chloride 0.9% 250 ML IV SCH (04:30)
[2020-07-05 04:38] LABS: ALT (SGPT) 8 U/L (8-55); AST (SGOT) 15 U/L (5-34); Albumin 3.4 g/dL (3.4-4.8); Alkaline Phosphatase 72 U/L (40-110); Anion Gap 13 mmol/L (10-20); BUN (Urea Nitrogen) 4 mg/dL (9.8-20.1); Bilirubin, Total 0.6 mg/dL (0.2-1.2); Calc. Creatinine Clearance 79 mL/min (70-130); Calcium 7.7 mg/dL (7.8-10.44); Carbon Dioxide 23 mmol/L (23-31); Chloride 104 mmol/L (98-107); Glucose 108 mg/dL (80-115); Lipase 15 U/L (8-78); Magnesium 1.8 mg/dL (1.6-2.6); Potassium 3.2 mmol/L (3.5-5.1); Protein, Total 5.4 g/dL (6.0-8.3); Sodium 137 mmol/L (136-145)
[2020-07-05 06:11] LABS: Hemoglobin 11.6 g/dL (12.0-16.0)
[2020-07-05] MEDS: Escitalopram Oxalate 10 mg Tablet PO SCH (08:33)
[2020-07-05] MEDS: Losartan 25 MG TAB PO SCH (08:34)
[2020-07-05] MEDS: Dronedarone HCl 400 MG TAB PO SCH ×2 (08:34→17:43)
[2020-07-05] MEDS: HYDROcodone/Acetaminophen 10/325 mg Tablet PO PRN ×2 (08:34→20:41)
[2020-07-05] MEDS: Aspirin Chewable 81 MG TAB PO SCH (08:34)
[2020-07-05] MEDS: Pantoprazole 40 MG VIAL IVP SCH ×2 (08:37→20:37)
[2020-07-05] MEDS: Lorazepam 1 MG TAB PO PRN ×2 (08:37→16:30)
--- NOTE | 2020-07-05 09:33 | PDOC.HOSPP ---
- Subjective Encounter Date: 07/05/20 Encounter Time: 10:00 Subjective: Ms. Salazar had just finished her shower and was sitting in bed at the time of the visit. She was clenching her stomach and crying in pain. Feels like a cramp from her xiphoid to suprapubic area. Not worsened or relieved with anything. No bowel movement today and hasn't noticed any blood in her stool since yesterday. Reports some shortness of breath with exertion. Was not wearing nasal cannula at time of the visit. Denies chest pain, history of pancreatitis, alcohol use, and smoking. She had hepatitis C in the past and was treated for it. - Objective Vital Signs & Weight: Vital Signs (12 hours) Temp Pulse Resp BP Pulse Ox 07/05/20 07:34 99.2 F 97 15 108/63 92 L 07/05/20 04:03 98.7 F 95 18 103/62 94 L 07/05/20 02:05 99.0 F 100 18 109/68 94 L Weight Weight 119 lb 9.6 oz I&O: 07/04/20 07/05/20 07/06/20 06:59 06:59 06:59 Intake Total 250 Balance 250 Result Diagrams: 07/05/20 14:04 07/05/20 03:51 Hospitalist ROS - Review of Systems Respiratory: denies: cough, shortness of breath Cardiovascular: denies: chest pain, palpitations Gastrointestinal: reports: abdominal pain (from xiphoid and suprapubic), constipation (no BM since yesterday). denies: nausea, vomiting, diarrhea, melena - Medication Medications: Active Medications Generic Name Dose Route Start Last Admin Trade Name Freq PRN Reason Stop Dose Admin Hydrocodone Bitart/Acetaminophen 1 tab 07/05/20 04:29 07/05/20 08:34 Hydrocodone/Acetaminophen 10/325 Mg Tablet PO 1 tab TID PRN Administration Pain Aspirin 81 mg 07/05/20 09:00 07/05/20 08:34 Aspirin Chewable 81 Mg Tab PO 81 mg DAILY SHANTELLE Administration Dronedarone 400 mg 07/05/20 08:00 07/05/20 08:34 Dronedarone Hcl 400 Mg Tab PO 400 mg BID-WM SHANTELLE Administration Escitalopram Oxalate 5 mg 07/05/20 09:00 07/05/20 08:33 Escitalopram Oxalate 10 Mg Tablet PO Not Given DAILY SHANTELLE Lorazepam 1 mg 07/05/20 04:29 07/05/20 08:37 Lorazepam 1 Mg Tab PO 1 mg Q8HR PRN Administration Anxiety Losartan Potassium 25 mg 07/05/20 09:00 07/05/20 08:34 Losartan 25 Mg Tab PO Not Given DAILY SHANTELLE Pantoprazole Sodium 40 mg 07/05/20 09:00 07/05/20 08:37 Pantoprazole 40 Mg Vial IVP 40 mg BID SHANTELLE Administration - Exam General Appearance: NAD ENT: normocephalic atraumatic Neck: supple Heart: RRR, no murmur, no gallops, no rubs, normal peripheral pulses Respiratory: CTAB, no wheezes, no rales, no ronchi, normal chest expansion Gastrointestinal: soft, non-distended, normal bowel sounds, tender to palpation, voluntary guarding Gastrointestinal - other findings: subxiphoid and suprapubic Extremities: no edema Hosp A/P - Plan Bright red blood per rectum - NPO - Trend Hemoglobin - from 12.5-->11.6 - CBC and CMP tomorrow - GI consulted - Will order heme occult test Abdominal pain hx of hep C - treated. - [place] - Lorazepam - Pantoprazole - LFT, Lipase, normal range and lactic acid 0.7 COPD - Ipratropium bromide - Simethicone HTN - losartan - hold since her blood pressure has been in 100s/ 60s CHF - Dronedarone
[2020-07-05] MEDS ORDERED: Potassium Chloride 10 MEQ TAB PO SCH (10:30)
[2020-07-05 14:20] LABS: Hemoglobin 12.1 g/dL (12.0-16.0)
[2020-07-05] MEDS: Ipratropium Bromide 2.5 ml Neb NEB SCH ×2 (15:19→19:29)
--- NOTE | 2020-07-05 17:09 | CON ---
DATE OF CONSULTATION: 07/05/2020 CHIEF COMPLAINT: Abdominal pain. HISTORY OF PRESENT ILLNESS: Ms. Salazar is a 64-year-old woman who presents with a 1-month history of worsening epigastric to diffuse, pressure-type abdominal pain that worsens after eating. She has had problems with constipation and has gone up to a week between bowel movements. Other times, she has had some liquidy stools. She underwent EGD at [facility] in [place] 2 days ago and was told she had some inflammation in her stomach and was started on sucralfate. She had been on Pepcid otherwise. She has not had nausea or vomiting, but does complain of diffuse pretty severe pressure-type abdominal pain. She took prune juice without significant help, but just bloated her more. She went to the ER in [place] and had an enema done, which resulted in bloody stool output. Because of the blood in the stool, she was then transferred here for further care. She declined transfer to [facility] because she had been there a couple of times with ongoing pain recently. She did have a CT scan of the abdomen and pelvis yesterday, which showed colon wall thickening and inflammatory changes around the splenic flexure and descending colon to proximal sigmoid. She has been taking muscle relaxers and intermittent [place] for back pain. Again, when she takes a [place], she gets more of the constipation. PAST MEDICAL HISTORY: COPD, on home oxygen; bronchitis; reported CHF, however, she is not on diuretics consistent with that; DVT; dysphagia; hepatitis C; atrial flutter; and hypertension. PAST SURGICAL HISTORY: She had an EGD 2 days ago at [facility]. She had an EGD here in 2017 with dilation of her esophagus, but this was overall normal. She reports colonoscopy was done in [place] 1 year ago and states it was normal. PAST SURGICAL HISTORY: , abdominal hernia repair, hysterectomy, tonsillectomy, and wrist surgery. FAMILY HISTORY: Negative for GI malignancy. SOCIAL HISTORY: She quit smoking in 2006. No alcohol or recent drug use. ALLERGIES: TORADOL, TRAMADOL, BACLOFEN, LEVOFLOXACIN, PENICILLIN, AND TIZANIDINE. OUTPATIENT MEDICATIONS: Prior to admission include; 1. Cyclobenzaprine. 2. Aspirin. 3. Gabapentin. 4. Montelukast. 5. Famotidine. 6. Flovent. 7. Lexapro. 8. Prolia. 9. Dicyclomine. 10. [place]. 11. Multaq. 12. Diltiazem. 13. Losartan. 14. Lorazepam. She states that she has not been on a regularly scheduled laxatives such as MiraLAX. REVIEW OF SYSTEMS: Negative x10 systems reviewed except as stated in History of Present Illness. PHYSICAL EXAMINATION: VITAL SIGNS: Temperature is 98.7, pulse 90 to 101, oxygen saturation 94% on room air, and blood pressure 107/64. GENERAL: She is in no acute distress. Alert and oriented x3. She is anxious. HEENT: Her eyes have no scleral icterus. Oropharynx is clear without lesions. No cervical or supraclavicular lymphadenopathy. LUNGS: Clear to auscultation bilaterally. HEART: Regular rate and rhythm without murmur. ABDOMEN: Soft, tender diffusely without guarding. Bowel sounds are present. EXTREMITIES: No lower extremity edema. NEUROLOGIC: Cranial nerves are grossly intact. LABORATORY DATA: White blood cell count 8.6, hemoglobin 12.1, and platelets 200. Creatinine 0.63, bilirubin 0.6, AST 15, ALT 8, alkaline phosphatase 72, albumin 3.4, lipase 15, and CRP 5.1. IMPRESSION: 1. Ischemic colitis. She has typical inflammatory changes from the splenic flexure to the proximal sigmoid. This is following a week of constipation followed by enemas and prune juice. She likely had additional dehydration along with her poor oral intake with her abdominal pain. Additionally, she is on blood pressure medications. Treatment is going to be IV fluids and we will cover with a 5-day course of antibiotics. She had a colonoscopy just a year ago per her report in [place], so she did not have to have one now. We will request that report. She also just had an EGD at [facility] in [place] 2 days ago, we will request that record. 2. Constipation exacerbated by chronic opioids. She should be on a chronic scheduled laxative. We will start MiraLAX daily. However, she states that she does not take the Cavalier regularly, so we will not start Movantik as a primary medication. 3. Chronic back pain for which she takes muscle relaxers and opioids. RECOMMENDATIONS: 1. IV fluids. I will add normal saline 125 mL/h, and we can monitor for signs of fluid overload. There is a history of CHF, but her medicine list does not really support that. 2. We will add antibiotics in light of the ischemic colitis to cover for bacterial translocation potential. 3. Add MiraLAX 17 g daily. 4. Clear liquid diet for today and as her pain improves over the next few days and she can advance her diet as she tolerates. 5. Obtain colonoscopy report from last year in [place] and EGD report from [place] along with pathology from a couple of days ago. ADDENDUM: Digital rectal exam was performed and revealed no stool or blood in the rectal vault. She has no impaction. There is no evidence of ongoing bleeding. There is a completely clean glove with the exam. Job ID: [id number]
[2020-07-05] MEDS: cefTRIAXone\\ROCEPHIN 1 GM in Sodium Chloride 0.9% 100 ML IVPB SCH (17:41)
[2020-07-05] MEDS: Polyethylene Glycol 3350 17 GM Packet PO SCH (17:42)
[2020-07-05] MEDS: Cyclobenzaprine 10 MG TAB PO SCH ×2 (17:42→20:36)
[2020-07-05] MEDS: Sodium Chloride 0.9% 1,000 ML IV SCH (17:42)
[2020-07-05] MEDS: Dicyclomine 20 MG TAB PO SCH ×2 (17:43→20:36)
[2020-07-05] MEDS: metroNIDAZOLE 500 MG in Premix Bag 1 BAG IVPB SCH (18:51)
[2020-07-05] MEDS: Gabapentin 400 MG CAP PO SCH (20:41)
[2020-07-06] MEDS: Sodium Chloride 0.9% 1,000 ML IV SCH ×4 (00:20→23:21)
[2020-07-06] MEDS: Lorazepam 1 MG TAB PO PRN ×3 (00:20→18:27)
[2020-07-06] MEDS: Simethicone Chewable 80 MG TAB PO PRN (01:10)
[2020-07-06] MEDS: metroNIDAZOLE 500 MG in Premix Bag 1 BAG IVPB SCH ×3 (01:11→18:27)
[2020-07-06] MEDS ORDERED: Cyclobenzaprine 10 MG TAB PO SCH (01:30)
[2020-07-06] MEDS ORDERED: Lidocaine 5% Patch TD SCH (02:00)
[2020-07-06 06:06] LABS: #Eosinphils 0.2 thou/uL (0.0-0.7); #Lymphocytes 0.7 thou/uL (1.20-3.40); #Monocytes 0.5 thou/uL (0.11-0.59); #Neutrophils 3.2 thou/uL (1.40-6.50); %Basophils 0.2 % (0.0-1.0); %Eosinophils 3.6 % (0.0-10.0); %Lymphocytes 15.8 % (21.0-51.0); %Monocytes 9.8 % (0.0-10.0); %Neutrophils 70.6 % (42.0-75.0); Hemoglobin 10.6 g/dL (12.0-16.0); Mean Corpuscular HGB CONC 33.5 g/dL (32.0-36.0); Mean Corpuscular Hemoglobin 31.8 pg (27.0-31.0); Mean Platelet Volume 8.2 fL (7.4-10.4); Platelet Count 132 thou/uL (130-400); RBC Distribution Width 11.7 % (11.5-14.5); Red Blood Cell (RBC) Count 3.33 mill/uL (4.20-5.40); White Blood Cell (WBC) Count 4.6 thou/uL (4.8-10.8)
[2020-07-06 06:27] LABS: ALT (SGPT) 9 U/L (8-55); AST (SGOT) 11 U/L (5-34); Albumin 3.2 g/dL (3.4-4.8); Alkaline Phosphatase 57 U/L (40-110); Anion Gap 10 mmol/L (10-20); BUN (Urea Nitrogen) 4 mg/dL (9.8-20.1); Bilirubin, Total 0.3 mg/dL (0.2-1.2); Calc. Creatinine Clearance 82 mL/min (70-130); Calcium 7.3 mg/dL (7.8-10.44); Carbon Dioxide 26 mmol/L (23-31); Chloride 109 mmol/L (98-107); Globulin 1.8 g/dL (2.4-3.5); Glucose 95 mg/dL (80-115); Potassium 3.9 mmol/L (3.5-5.1); Sodium 141 mmol/L (136-145)
[2020-07-06] MEDS: Ipratropium Bromide 2.5 ml Neb NEB SCH ×3 (07:23→19:08)
[2020-07-06] MEDS: Dronedarone HCl 400 MG TAB PO SCH ×2 (08:59→16:01)
[2020-07-06] MEDS: Dicyclomine 20 MG TAB PO SCH ×4 (09:00→21:17)
[2020-07-06] MEDS: Aspirin Chewable 81 MG TAB PO SCH (09:00)
[2020-07-06] MEDS: Cyclobenzaprine 10 MG TAB PO SCH ×3 (09:00→21:16)
[2020-07-06] MEDS: Pantoprazole 40 MG VIAL IVP SCH ×2 (09:01→21:17)
[2020-07-06] MEDS: Montelukast Sodium 10 mg Tablet PO SCH (09:01)
[2020-07-06] MEDS: Losartan 25 MG TAB PO SCH (09:14)
[2020-07-06] MEDS: Escitalopram Oxalate 10 mg Tablet PO SCH (09:14)
[2020-07-06] MEDS: Gabapentin 400 MG CAP PO SCH ×4 (09:14→21:26)
[2020-07-06] MEDS: HYDROcodone/Acetaminophen 10/325 mg Tablet PO PRN ×2 (10:47→18:31)
--- NOTE | 2020-07-06 12:44 | PDOC.HOSPP ---
- Subjective Encounter Date: 07/06/20 Encounter Time: 10:30 Subjective: Patient seen this morning. She is still complaining of pain -ischemic colitis; clear liquid diet - Objective Vital Signs & Weight: Vital Signs (12 hours) Temp Pulse Resp BP Pulse Ox 07/06/20 10:52 98.2 F 90 20 106/71 97 07/06/20 08:50 96 07/06/20 07:56 97.6 F 79 18 96/58 L 96 07/06/20 07:23 88 14 07/06/20 04:00 98.0 F 88 18 123/71 100 Weight Admit Weight 119 lb 9.6 oz Weight 119 lb 9.6 oz I&O: 07/05/20 07/06/20 07/07/20 06:59 06:59 06:59 Intake Total 250 1535 Balance 250 1535 Result Diagrams: 07/06/20 05:52 07/06/20 05:52 Hospitalist ROS - Medication Medications: Active Medications Generic Name Dose Route Start Last Admin Trade Name Freq PRN Reason Stop Dose Admin Hydrocodone Bitart/Acetaminophen 1 tab 07/05/20 04:29 07/06/20 10:47 Hydrocodone/Acetaminophen 10/325 Mg Tablet PO 1 tab TID PRN Administration Pain Aspirin 81 mg 07/05/20 09:00 07/06/20 09:00 Aspirin Chewable 81 Mg Tab PO 81 mg DAILY SHANTELLE Administration Cyclobenzaprine HCl 10 mg 07/05/20 15:00 07/06/20 09:00 Cyclobenzaprine 10 Mg Tab PO 10 mg TID SHANTELLE Administration Dicyclomine HCl 20 mg 07/05/20 17:00 07/06/20 09:00 Dicyclomine 20 Mg Tab PO 20 mg QID SHANTELLE Administration Diltiazem HCl 120 mg 07/06/20 09:00 07/06/20 09:14 Diltiazem Cd 120 Mg Cap PO Not Given DAILY SHANTELLE Dronedarone 400 mg 07/05/20 08:00 07/06/20 08:59 Dronedarone Hcl 400 Mg Tab PO 400 mg BID-WM SHANTELLE Administration Escitalopram Oxalate 5 mg 07/05/20 09:00 07/06/20 09:14 Escitalopram Oxalate 10 Mg Tablet PO Not Given DAILY SHANTELLE Gabapentin 800 mg 07/05/20 21:00 07/06/20 09:14 Gabapentin 400 Mg Cap PO Not Given TID SHANTELLE Sodium Chloride 1,000 mls @ 125 mls/hr 07/05/20 16:00 07/06/20 09:00 Normal Saline 0.9% IV 1,000 mls .Q8H SHANTELLE Administration Metronidazole 500 mg/ Device 100 mls @ 100 mls/hr 07/05/20 18:00 07/06/20 09:02 IVPB 100 mls 0200,1000,1800 SHANTELLE Administration Ceftriaxone Sodium 1 gm/ 100 mls @ 200 mls/hr 07/05/20 17:00 07/05/20 17:41 Sodium Chloride IVPB 100 mls 1700 SHANTELLE Administration Ipratropium [place] 2.5 ml 07/05/20 06:30 07/06/20 07:23 Ipratropium [place] 2.5 Ml Neb NEB 2.5 ml TID-RT SHANTELLE Administration Lorazepam 1 mg 07/05/20 04:29 07/06/20 09:01 Lorazepam 1 Mg Tab PO 1 mg Q8HR PRN Administration Anxiety Losartan Potassium 25 mg 07/05/20 09:00 07/06/20 09:14 Losartan 25 Mg Tab PO Not Given DAILY SHANTELLE Montelukast Sodium 10 mg 07/06/20 09:00 07/06/20 09:01 Montelukast Sodium 10 Mg Tablet PO 10 mg DAILY SHANTELLE Administration Pantoprazole Sodium 40 mg 07/05/20 09:00 07/06/20 09:01 Pantoprazole 40 Mg Vial IVP 40 mg BID SHANTELLE Administration Polyethylene Glycol 17 gm 07/05/20 17:00 07/05/20 17:42 Polyethylene Glycol 3350 17 Gm Packet PO 17 gm 1700 SHANTELLE Administration Simethicone 80 mg 07/05/20 04:37 07/06/20 01:10 Simethicone Chewable 80 Mg Tab PO 80 mg PCHS PRN Administration Gas Pain - Exam General Appearance: awake alert, ill appearing Eye: PERRL, anicteric sclera ENT: normocephalic atraumatic Neck: supple Heart: RRR Respiratory: CTAB, normal chest expansion Gastrointestinal: soft, normal bowel sounds Neurological: no focal deficits Psychiatric: A&O x 3 Hosp A/P - Plan Bright red blood per rectum CT showed inflammatory changes from the splenic flexure to the proximal sigmoid ischemic colitis---- --empiric antibiotic with ceftriaxone as ordered by Dr. Nash -Clear liquid - Trend Hemoglobin - from 12.5-->11.6 - CBC and CMP tomorrow - GI on board -Digital rectal exam without any blood in the rectal vault; no impaction -Recent colonoscopy last year at [facility] -EGD at [facility] in [place] just few days previous to admission -Reports have been requested from these places. -Pain controlled with [place] Abdominal pain the above hx of hep C - treated. - [place] - Lorazepam - Pantoprazole - LFT, Lipase, normal range and lactic acid 0.7 COPD - Ipratropium bromide - Simethicone HTN - losartan - hold since her blood pressure been in 100s/ 60s CHF - Dronedarone
[2020-07-06] MEDS ORDERED: Lidocaine Patch Removal 1 EACH TOP SCH (14:00)
[2020-07-06] MEDS: cefTRIAXone\\ROCEPHIN 1 GM in Sodium Chloride 0.9% 100 ML IVPB SCH (16:01)
[2020-07-06] MEDS: Polyethylene Glycol 3350 17 GM Packet PO SCH (16:02)
--- NOTE | 2020-07-06 17:31 | PRG ---
DATE OF SERVICE: 07/06/2020 SUBJECTIVE: Ms. Salazar feels better today. She still has left sided to diffuse abdominal pain and feels full after taking her clear liquids, but overall feels better than yesterday. OBJECTIVE: VITAL SIGNS: Temperature is 97.8, pulse 90, blood pressure 94/61. GENERAL: She is in no acute distress. Alert and oriented x3. LUNGS: Clear to auscultation bilaterally. HEART: Regular rate and rhythm without murmur. ABDOMEN: Soft, tender in the left lower quadrant. Bowel sounds are present. EXTREMITIES: No lower extremity edema. LABORATORY DATA: White blood cell count 4.6, hemoglobin 10.6, platelets 132. IMPRESSION: Ischemic colitis. She is having clinical improvement, but this will take several days. I suspect it really get significantly and clinically better. RECOMMENDATIONS: 1. Continue the clear liquids for now. 2. She is on ceftriaxone and metronidazole. 3. Hopefully, she will be ready to advance her diet more tomorrow depending on how her pain is doing. 4. Continue MiraLAX daily. Job ID: [id number]
[2020-07-06] MEDS: Mometasone Furoate 120 PUFF 220 MCG INH SCH (18:40)
[2020-07-07] MEDS: Simethicone Chewable 80 MG TAB PO PRN (00:02)
[2020-07-07] MEDS: metroNIDAZOLE 500 MG in Premix Bag 1 BAG IVPB SCH ×3 (02:20→17:43)
[2020-07-07 06:12] LABS: Anion Gap 13 mmol/L (10-20); BUN (Urea Nitrogen) Less than 4 mg/dL (9.8-20.1); Calc. Creatinine Clearance 83 mL/min (70-130); Calcium 7.5 mg/dL (7.8-10.44); Carbon Dioxide 23 mmol/L (23-31); Chloride 110 mmol/L (98-107); Glucose 93 mg/dL (80-115); Magnesium 1.8 mg/dL (1.6-2.6); Phosphorus 2.2 mg/dL (2.3-4.7); Sodium 142 mmol/L (136-145)
[2020-07-07] MEDS: Ipratropium Bromide 2.5 ml Neb NEB SCH ×3 (08:21→20:48)
[2020-07-07] MEDS: Montelukast Sodium 10 mg Tablet PO SCH (08:52)
[2020-07-07] MEDS: Lorazepam 1 MG TAB PO PRN ×2 (08:53→17:42)
[2020-07-07] MEDS: Cyclobenzaprine 10 MG TAB PO SCH ×3 (08:53→20:39)
[2020-07-07] MEDS: Losartan 25 MG TAB PO SCH (08:53)
[2020-07-07] MEDS: Dicyclomine 20 MG TAB PO SCH ×4 (08:54→20:39)
[2020-07-07] MEDS: Dronedarone HCl 400 MG TAB PO SCH ×2 (08:55→16:28)
[2020-07-07] MEDS: Aspirin Chewable 81 MG TAB PO SCH (08:55)
[2020-07-07] MEDS: Sodium Chloride 0.9% 1,000 ML IV SCH ×2 (09:17→19:07)
[2020-07-07] MEDS: Gabapentin 400 MG CAP PO SCH ×3 (09:17→20:40)
[2020-07-07] MEDS: Escitalopram Oxalate 10 mg Tablet PO SCH (09:17)
[2020-07-07] MEDS: Lidocaine 5% Patch TD SCH (09:18)
[2020-07-07 09:37] LABS: Band 1 % (5-11); Eosinophils 3 % (0-10); Hemoglobin 11.2 g/dL (12.0-16.0); Lymphocytes 23 % (21-51); MDiff Complete? YES; Mean Corpuscular HGB CONC 33.8 g/dL (32.0-36.0); Mean Corpuscular Hemoglobin 32.5 pg (27.0-31.0); Mean Corpuscular Volume 96.2 fL (78.0-98.0); Mean Platelet Volume 9.7 fL (7.4-10.4); Monocytes 4 % (0-10); Neutrophil 69 % (42-75); Platelet Count 156 thou/uL (130-400); Platelet Morphology Comment Appears Adequate; RBC Distribution Width 11.7 % (11.5-14.5); RBC Morphology Normal; Red Blood Cell (RBC) Count 3.45 mill/uL (4.20-5.40); White Blood Cell (WBC) Count 3.5 thou/uL (4.8-10.8)
[2020-07-07] MEDS: Pantoprazole 40 MG VIAL IVP SCH ×2 (10:00→20:40)
[2020-07-07] MEDS: HYDROcodone/Acetaminophen 10/325 mg Tablet PO PRN ×3 (10:03→22:15)
--- NOTE | 2020-07-07 14:03 | PRG ---
DATE OF SERVICE: 07/07/2020 SUBJECTIVE: Ms. Salazar has an increase in her abdominal discomfort today. It hurts when she stands up and moves around. She has had no bowel movement now since she was in the ambulance on the way over here. OBJECTIVE: VITAL SIGNS: Temperature is 97.9, pulse 86, and blood pressure 131/82. LUNGS: Clear to auscultation bilaterally. HEART: Regular rate and rhythm without murmur. ABDOMEN: Soft, diffusely tender to light palpation. She has no bowel sounds. EXTREMITIES: No lower extremity edema. LABORATORY DATA: White blood cell count 3.5, hemoglobin 11.6, and platelets 156. Creatinine 0.6. IMPRESSION AND PLAN: 1. Ischemic colitis. She seems to be significantly more uncomfortable today with her abdominal pain. She has not had a bowel movement for the last couple of days and she has no bowel sounds. I will repeat her CT scan at this point to rule out any obvious surgical emergency. However, her vital signs are okay and her white blood cell count is only slightly low. 2. If the CT is negative, then the treatment plan is still the same with IV fluids. Clear liquid diet and antibiotics. Job ID: [id number]
[2020-07-07] MEDS ORDERED: BIOTENE MOUTH SPRAY 44.3 ML PO PRN (15:41)
--- NOTE | 2020-07-07 16:24 | EKG ---
Test Reason : ROUTINE Blood Pressure : / mmHG Vent. Rate : 090 BPM Atrial Rate : 090 BPM P-R Int : 162 ms QRS Dur : 078 ms QT Int : 392 ms P-R-T Axes : 044 051 045 degrees QTc Int : 479 ms Normal sinus rhythm Low voltage QRS Borderline ECG No previous ECGs available Confirmed by DR. Dung JAMISON ([id number]) on 07/07/2020 4:23:32 PM Referred By: EBER Confirmed By:DR. Dung JAMISON
[2020-07-07] MEDS: Polyethylene Glycol 3350 17 GM Packet PO SCH (16:36)
[2020-07-07] MEDS: cefTRIAXone\\ROCEPHIN 1 GM in Sodium Chloride 0.9% 100 ML IVPB SCH (16:48)
--- NOTE | 2020-07-07 19:21 | PDOC.HOSPP ---
- Subjective Encounter Date: 07/07/20 Subjective: Seen and examined this morning at bedside. She continues to express significant abdominal pain. Does not tell me description of the pain and limits his answers to short statements. Denies any fever chills malaise vomiting or diarrhea. - Objective Vital Signs & Weight: Vital Signs (12 hours) Temp Pulse Resp BP Pulse Ox 07/07/20 16:03 126/80 07/07/20 14:03 90 20 07/07/20 11:08 131/82 07/07/20 08:21 86 16 100 07/07/20 07:42 97.9 F 86 20 114/73 100 Weight Admit Weight 119 lb 9.6 oz Weight 119 lb 9.6 oz I&O: 07/06/20 07/07/20 07/08/20 06:59 06:59 06:59 Intake Total 1535 5305 1300 Output Total 400 Balance 1535 4905 1300 Result Diagrams: 07/07/20 05:28 07/07/20 05:27 Hospitalist ROS - Review of Systems ROS unobtainable: due to mental status (In acute pain, no offering much details about complains.) Respiratory: denies: cough, dry, shortness of breath, hemoptysis, SOB with excertion, pleuritic pain, sputum, wheezing, other Gastrointestinal: reports: abdominal pain. denies: vomiting Genitourinary: denies: dysuria, frequency, incontinence, hematuria, retention, other - Medication Medications: Active Medications Generic Name Dose Route Start Last Admin Trade Name Freq PRN Reason Stop Dose Admin Hydrocodone Bitart/Acetaminophen 1 tab 07/07/20 14:36 07/07/20 16:25 Hydrocodone/Acetaminophen 10/325 Mg Tablet PO 1 tab QIDPRN PRN Administration Moderate Pain (4-6) Aspirin 81 mg 07/05/20 09:00 07/07/20 08:55 Aspirin Chewable 81 Mg Tab PO 81 mg DAILY SHANTELLE Administration Cyclobenzaprine HCl 10 mg 07/05/20 15:00 07/07/20 16:28 Cyclobenzaprine 10 Mg Tab PO 10 mg TID SHANTELLE Administration Dicyclomine HCl 20 mg 07/05/20 17:00 07/07/20 16:49 Dicyclomine 20 Mg Tab PO 20 mg QID SHANTELLE Administration Diltiazem HCl 120 mg 07/06/20 09:00 07/07/20 08:53 Diltiazem Cd 120 Mg Cap PO 120 mg DAILY SHANTELLE Administration Dronedarone 400 mg 07/05/20 08:00 07/07/20 16:28 Dronedarone Hcl 400 Mg Tab PO 400 mg BID-WM SHANTELLE Administration Escitalopram Oxalate 5 mg 07/05/20 09:00 07/07/20 09:17 Escitalopram Oxalate 10 Mg Tablet PO Not Given DAILY SHANTELLE Gabapentin 800 mg 07/05/20 21:00 07/07/20 16:47 Gabapentin 400 Mg Cap PO Not Given TID SHANTELLE Metronidazole 500 mg/ Device 100 mls @ 100 mls/hr 07/05/20 18:00 07/07/20 17:43 IVPB 100 mls 0200,1000,1800 SHANTELLE Administration Ceftriaxone Sodium 1 gm/ 100 mls @ 200 mls/hr 07/05/20 17:00 07/07/20 16:48 Sodium Chloride IVPB 100 mls 1700 SHANTELLE Administration Sodium Chloride 1,000 mls @ 100 mls/hr 07/06/20 13:56 07/07/20 19:07 Normal Saline 0.9% IV 1,000 mls .Q10H SHANTELLE Administration Ipratropium [place] 2.5 ml 07/05/20 06:30 07/07/20 14:03 Ipratropium [place] 2.5 Ml Neb NEB 2.5 ml TID-RT SHANTELLE Administration Lidocaine 1 patch 07/07/20 09:00 07/07/20 09:18 Lidocaine 5% Patch TD 1 patch DAILY SHANTELLE Administration Lorazepam 1 mg 07/05/20 04:29 07/07/20 17:42 Lorazepam 1 Mg Tab PO 1 mg Q8HR PRN Administration Anxiety Losartan Potassium 25 mg 07/05/20 09:00 07/07/20 08:53 Losartan 25 Mg Tab PO 25 mg DAILY SHANTELLE Administration Miscellaneous Medication 1 ml 07/07/20 15:41 07/07/20 16:23 Biotene Mouth [place] 44.3 Ml PO 1 spray Q4H PRN Administration Dry Mouth Mometasone Furoate 1 puff 07/06/20 18:30 07/06/20 18:40 Mometasone Furoate 120 Puff 220 Mcg INH 1 puff 1830 SHANTELLE Administration Montelukast Sodium 10 mg 07/06/20 09:00 07/07/20 08:52 Montelukast Sodium 10 Mg Tablet PO 10 mg DAILY SHANTELLE Administration Pantoprazole Sodium 40 mg 07/05/20 09:00 07/07/20 10:00 Pantoprazole 40 Mg Vial IVP 40 mg BID SHANTELLE Administration Polyethylene Glycol 17 gm 07/05/20 17:00 07/07/20 16:36 Polyethylene Glycol 3350 17 Gm Packet PO 17 gm 1700 SHANTELLE Administration Simethicone 80 mg 07/05/20 04:37 07/07/20 00:02 Simethicone Chewable 80 Mg Tab PO 80 mg PCHS PRN Administration Gas Pain - Exam General Appearance: ill appearing General - other findings: Some degree of distress due to abdominal pain Heart: RRR, no murmur, no gallops, no rubs, normal peripheral pulses Respiratory: CTAB, no wheezes, no rales, no ronchi, normal chest expansion, no tachypnea, normal percussion Gastrointestinal: soft, non-distended, normal bowel sounds Gastrointestinal - other findings: Generalized tenderness Extremities: no cyanosis, no clubbing, no edema Neurological: cranial nerve grossly intact, normal sensation to touch, no weakness, no focal deficits, no new deficit Musculoskeletal: normal tone, normal strength, no muscle wasting Hosp A/P - Plan A/P: Admitted with abdominal pain & BRBPR with CT evidence of inflammatory changes to splenic flexure - sigmoid colon suggestive of ischemic colitis. # BRPPR: Suggestive of ischemic colitis. Does not appear septic/toxic but does appear acutely ill due to intermittent pain. Continue with current course of IV ABX. Continue with IV Protonix. On clear liquid diet per surgery recommendations. Continue to trend H&H. # COPD: No evidence of acute exacerbation. Continue with current regimen. # HTN: Continue with current regimen of low dose Losartan. BP in the lower side. Monitor hemodynamics closely. # Hx of AF: Not on AC. Continue with Cardizem and Multaq. DISPOSITION: Not medically ready for discharge. Continue with IV ABX, IV Protonix, pain control per above.
[2020-07-07 19:57] LABS: #Eosinphils 0.2 thou/uL (0.0-0.7); #Lymphocytes 0.5 thou/uL (1.20-3.40); #Monocytes 0.3 thou/uL (0.11-0.59); #Neutrophils 2.1 thou/uL (1.40-6.50); %Basophils 0.8 % (0.0-1.0); %Eosinophils 5.3 % (0.0-10.0); %Lymphocytes 16.3 % (21.0-51.0); %Monocytes 10.4 % (0.0-10.0); %Neutrophils 67.3 % (42.0-75.0); Hemoglobin 11.3 g/dL (12.0-16.0); Mean Corpuscular HGB CONC 33.6 g/dL (32.0-36.0); Mean Corpuscular Volume 92.3 fL (78.0-98.0); Mean Platelet Volume 7.8 fL (7.4-10.4); Platelet Count 187 thou/uL (130-400); RBC Distribution Width 11.5 % (11.5-14.5); Red Blood Cell (RBC) Count 3.66 mill/uL (4.20-5.40); White Blood Cell (WBC) Count 3.1 thou/uL (4.8-10.8)
[2020-07-07] MEDS: Lidocaine Patch Removal 1 EACH TOP SCH (20:40)
[2020-07-07 21:14] LABS: Calcium 7.8 mg/dL (7.8-10.44); Chloride 107 mmol/L (98-107); Glucose 98 mg/dL (80-115); Potassium 3.8 mmol/L (3.5-5.1); Sodium 141 mmol/L (136-145)
[2020-07-07] MEDS: Mometasone Furoate 120 PUFF 220 MCG INH SCH (21:54)
[2020-07-07] MEDS ORDERED: Ondansetron ODT 4 MG TAB PO PRN (22:04)
[2020-07-07 22:10] LABS: Anion Gap 14 mmol/L (10-20); Carbon Dioxide 24 mmol/L (23-31)
[2020-07-07 22:12] LABS: Calc. Creatinine Clearance 85 mL/min (70-130)
[2020-07-07 22:13] LABS: BUN (Urea Nitrogen) Less than 4 mg/dL (9.8-20.1)
[2020-07-07] MEDS: Ondansetron PF 4 MG/2 ML Vial IVP PRN (22:15)
[2020-07-08] MEDS: Lorazepam 1 MG TAB PO PRN ×3 (01:41→20:40)
[2020-07-08] MEDS: metroNIDAZOLE 500 MG in Premix Bag 1 BAG IVPB SCH ×3 (01:44→17:50)
[2020-07-08] MEDS: HYDROcodone/Acetaminophen 10/325 mg Tablet PO PRN ×3 (04:26→23:22)
[2020-07-08] MEDS: Sodium Chloride 0.9% 1,000 ML IV SCH ×2 (04:26→17:01)
[2020-07-08 07:10] LABS: Anion Gap 18 mmol/L (10-20); BUN (Urea Nitrogen) Less than 4 mg/dL (9.8-20.1); Calc. Creatinine Clearance 78 mL/min (70-130); Calcium 7.7 mg/dL (7.8-10.44); Carbon Dioxide 17 mmol/L (23-31); Chloride 109 mmol/L (98-107); Glucose 85 mg/dL (80-115); Potassium 3.7 mmol/L (3.5-5.1); Sodium 140 mmol/L (136-145)
[2020-07-08] MEDS: Ipratropium Bromide 2.5 ml Neb NEB SCH ×3 (07:46→19:38)
[2020-07-08 08:13] LABS: Band 1 % (5-11); Eosinophils 5 % (0-10); Hemoglobin 12.3 g/dL (12.0-16.0); Lymphocytes 30 % (21-51); MDiff Complete? YES; Mean Corpuscular HGB CONC 31.8 g/dL (32.0-36.0); Mean Corpuscular Hemoglobin 31.4 pg (27.0-31.0); Mean Corpuscular Volume 98.5 fL (78.0-98.0); Mean Platelet Volume 7.9 fL (7.4-10.4); Monocytes 14 % (0-10); Neutrophil 50 % (42-75); Platelet Count 218 thou/uL (130-400); Platelet Morphology Comment Appears Adequate; Polychromasia SLIGHT = 2-3 cells (100X) (0-2/hpf); RBC Distribution Width 11.8 % (11.5-14.5); Red Blood Cell (RBC) Count 3.93 mill/uL (4.20-5.40); White Blood Cell (WBC) Count 3.5 thou/uL (4.8-10.8)
[2020-07-08] MEDS: Cyclobenzaprine 10 MG TAB PO SCH ×3 (08:13→19:39)
[2020-07-08] MEDS: Dronedarone HCl 400 MG TAB PO SCH ×2 (08:13→16:56)
[2020-07-08] MEDS: Losartan 25 MG TAB PO SCH (08:13)
[2020-07-08] MEDS: Aspirin Chewable 81 MG TAB PO SCH (08:13)
[2020-07-08] MEDS: Montelukast Sodium 10 mg Tablet PO SCH (08:13)
[2020-07-08] MEDS: Dicyclomine 20 MG TAB PO SCH ×5 (08:15→19:41)
[2020-07-08] MEDS: Pantoprazole 40 MG VIAL IVP SCH ×2 (08:16→19:43)
[2020-07-08] MEDS: Gabapentin 400 MG CAP PO SCH ×3 (08:16→19:40)
[2020-07-08] MEDS: Escitalopram Oxalate 10 mg Tablet PO SCH (08:17)
[2020-07-08] MEDS: Lidocaine 5% Patch TD SCH (09:40)
[2020-07-08] MEDS ORDERED: Iopamidol-370 76% 500 ML 1 ML ONE (10:31)
--- NOTE | 2020-07-08 10:58 | CT ---
CT ABDOMEN AND PELVIS WITH IV CONTRAST: Date: 07/08/2020 INDICATION: Abdominal pain. Colitis. Comparison made to a noncontrast CT abdomen and pelvis from 04/18/2017. FINDINGS: Lung bases clear. Liver, spleen, and pancreas are unremarkable. Stomach is mildly distended. Gallbladder is distended. No evidence of pericholecystic edema. No gallstones by CT, although cholest nba stones will not be apparent on CT. Adrenal glands normal. Kidneys show no hydronephrosis. There are numerous tiny low density foci seen bilaterally which are too small to characterize and are subcentimeter in dimension. Small bowel loops normal caliber. There is large volume stool in a dilated right colon and cecum. There is gaseous distention of the tr ansverse colon. Decompression of the descending colon and sigmoid. Aorta shows mild atherosclerotic calcification without aneurysm or dissection. Images through pelvis show a distended urinary bladder. Evidence of hysterectomy. The osseous structures show mild osteopenia. Mild wedging of the T11 vertebra with a superior end archana te deformity consistent with a Schmorl's node. Multiple Schmorl's nodes seen in the end plates of the lumbar spine. Right hip prosthesis. IMPRESSION: 1. Large volume stool in a dilated right colon and cecum. Gaseous dilatation of the transverse colon with decompression of the left colon. Consider further evaluation with colonoscopy. Luminal stenosis in the region of the splenic flexure should be excluded. 2. Distended gallbladder which is nonspecific. Consider gallbladder ultrasound as indicated. 3. Distended urinary bladder. POS: AGW
--- NOTE | 2020-07-08 14:27 | PRG ---
DATE OF SERVICE: 07/08/2020 SUBJECTIVE: Ms. Salazar continues to have waxing and waning left-sided abdominal pain. She has been passing some gas and small bowel movements. She denies any nausea. She has a lot of dry mouth. OBJECTIVE: VITAL SIGNS: Temperature 98.3, pulse 98, blood pressure 115/70, 99% oxygen saturation on 1.5 L by nasal cannula. GENERAL: No acute distress. HEART: Regular rate and rhythm. LUNGS: Clear to auscultation bilaterally. ABDOMEN: Mild distention, tympanitic. Bowel sounds are present. Soft. Tender to palpation in the left abdomen. No guarding or rebound tenderness. EXTREMITIES: No peripheral edema. LABORATORY STUDIES: WBC 3.5, hemoglobin 12.3, platelets 218. Sodium 140, potassium 3.7, BUN less than 4, creatinine 0.64. IMAGING STUDIES: CT of the abdomen and pelvis performed this morning demonstrates a large amount of stool in dilated right colon and cecum with dilation of the transverse colon and decompression of the left colon. ASSESSMENT AND PLAN: 1. Ischemic colitis, left-sided. 2. Left-sided abdominal pain secondary to ischemic colitis. 3. Partial colon obstructive physiology, appears to be secondary to ischemic colitis. The patient is not really having as rapid symptomatic improvement as might be expected. CT this morning suggests that there is some degree of partial obstructive physiology, likely from the acute ischemic colitis. In some cases, colonic ischemia may result in severe stricture, though more commonly we expect resolution over several days. There is no surgical indication at this time also as she has had a colonoscopy within the past couple of years, I am not inclined to repeat colonoscopy, but if the patient does not see better symptomatic improvement in the next few days, this might need to be considered. For now, continue current therapy with antibiotics, pain control, IV fluids. GI will continue to follow. Job ID: [id number]
[2020-07-08] MEDS: cefTRIAXone\\ROCEPHIN 1 GM in Sodium Chloride 0.9% 100 ML IVPB SCH (17:02)
[2020-07-08] MEDS: Polyethylene Glycol 3350 17 GM Packet PO SCH (17:09)
--- NOTE | 2020-07-08 18:05 | PDOC.HOSPP ---
- Subjective Encounter Date: 07/08/20 Subjective: Seen and examined this morning at bedside. Patient remains frustrated about slow and somewhat worsening of her symptoms. States her abdomen appears more distended and she remains nauseated & with abdominal pain. She tells me that has not been able to pass gas for a couple of day or have a bowel movement. CT scan of the abdomen this morning 07-08-20 does show some evidence of large volume of stool in a dilated right colon as well as gaseous distention of transverse colon with decompression of left colon. Above are concerning for some luminal stenosis at splenic flexure. With history of ischemic colitis this is certainly a consideration. GI team advices conservative management for now with future consideration for repeat colonoscopy and possible surgical ev aluation. - Objective Vital Signs & Weight: Vital Signs (12 hours) Temp Pulse Resp BP BP Pulse Ox 07/08/20 14:57 94 16 100 07/08/20 13:13 98.3 F 98 20 115/70 99 07/08/20 08:15 86 121/66 07/08/20 07:46 86 18 93 L 07/08/20 07:11 98.4 F 88 19 121/66 97 Weight Admit Weight 119 lb 9.6 oz Weight 119 lb 9.6 oz I&O: 07/07/20 07/08/20 07/09/20 06:59 06:59 06:59 Intake Total 5305 1300 Output Total 400 Balance 4905 1300 Result Diagrams: 07/08/20 06:22 07/08/20 06:22 Additional Labs: Accuchecks 07/08/20 03:50 POC Glucose 96 Radiology Reviewed by me: Yes Hospitalist ROS - Review of Systems Constitutional: denies: fever, chills, sweats, weakness, malaise, other ENT: reports: other (Complaining of dry mouth) Respiratory: denies: cough, dry, shortness of breath, hemoptysis, SOB with excertion, pleuritic pain, sputum, wheezing, other Cardiovascular: denies: chest pain, palpitations, orthopnea, paroxysmal noc. dyspnea, edema, light headedness, other Gastrointestinal: reports: nausea, abdominal pain, constipation Neurological: denies: weakness, numbness, incoordination, change in speech, confusion, seizures, other - Medication Medications: Active Medications Generic Name Dose Route Start Last Admin Trade Name Freq PRN Reason Stop Dose Admin Hydrocodone Bitart/Acetaminophen 1 tab 07/07/20 14:36 07/08/20 13:07 Hydrocodone/Acetaminophen 10/325 Mg Tablet PO 1 tab QIDPRN PRN Administration Moderate Pain (4-6) Aspirin 81 mg 07/05/20 09:00 07/08/20 08:13 Aspirin Chewable 81 Mg Tab PO 81 mg DAILY SHANTELLE Administration Cyclobenzaprine HCl 10 mg 07/05/20 15:00 07/08/20 15:02 Cyclobenzaprine 10 Mg Tab PO Not Given TID SHANTELLE Dicyclomine HCl 20 mg 07/05/20 17:00 07/08/20 17:08 Dicyclomine 20 Mg Tab PO Not Given QID SHANTELLE Diltiazem HCl 120 mg 07/06/20 09:00 07/08/20 08:15 Diltiazem Cd 120 Mg Cap PO 120 mg DAILY SHANTELLE Administration Dronedarone 400 mg 07/05/20 08:00 07/08/20 16:56 Dronedarone Hcl 400 Mg Tab PO 400 mg BID-WM SHANTELLE Administration Escitalopram Oxalate 5 mg 07/05/20 09:00 07/08/20 08:17 Escitalopram Oxalate 10 Mg Tablet PO Not Given DAILY SHANTELLE Gabapentin 800 mg 07/05/20 21:00 07/08/20 15:02 Gabapentin 400 Mg Cap PO Not Given TID SHANTELLE Metronidazole 500 mg/ Device 100 mls @ 100 mls/hr 07/05/20 18:00 07/08/20 17:50 IVPB 100 mls 0200,1000,1800 SHANTELLE Administration Ceftriaxone Sodium 1 gm/ 100 mls @ 200 mls/hr 07/05/20 17:00 07/08/20 17:02 Sodium Chloride IVPB 100 mls 1700 SHANTELLE Administration Sodium Chloride 1,000 mls @ 100 mls/hr 07/06/20 13:56 07/08/20 17:01 Normal Saline 0.9% IV 1,000 mls .Q10H SHANTELLE Administration Ipratropium [place] 2.5 ml 07/05/20 06:30 07/08/20 14:57 Ipratropium [place] 2.5 Ml Neb NEB 2.5 ml TID-RT SHANTELLE Administration Lidocaine 1 patch 07/07/20 09:00 07/08/20 09:40 Lidocaine 5% Patch TD 1 patch DAILY SHANTELLE Administration Lorazepam 1 mg 07/05/20 04:29 07/08/20 09:41 Lorazepam 1 Mg Tab PO 1 mg Q8HR PRN Administration Anxiety Losartan Potassium 25 mg 07/05/20 09:00 07/08/20 08:13 Losartan 25 Mg Tab PO 25 mg DAILY SHANTELLE Administration Miscellaneous Medication 1 each 07/07/20 21:00 07/07/20 20:40 Lidocaine Patch Removal 1 Each TOP 1 each 2100 SHANTELLE Administration Miscellaneous Medication 1 ml 07/07/20 15:41 07/07/20 16:23 Biotene Mouth [place] 44.3 Ml PO 1 spray Q4H PRN Administration Dry Mouth Mometasone Furoate 1 puff 07/06/20 18:30 07/07/20 21:54 Mometasone Furoate 120 Puff 220 Mcg INH Not Given 1830 SHANTELLE Montelukast Sodium 10 mg 07/06/20 09:00 07/08/20 08:13 Montelukast Sodium 10 Mg Tablet PO 10 mg DAILY SHANTELLE Administration Ondansetron HCl 4 mg 07/07/20 22:04 07/07/20 22:15 Ondansetron Pf 4 Mg/2 Ml Vial IVP 4 mg Q6H PRN Administration Nausea/Vomiting Pantoprazole Sodium 40 mg 07/05/20 09:00 07/08/20 08:16 Pantoprazole 40 Mg Vial IVP 40 mg BID SHANTELLE Administration Polyethylene Glycol 17 gm 07/05/20 17:00 07/08/20 17:09 Polyethylene Glycol 3350 17 Gm Packet PO 17 gm 1700 SHANTELLE Administration Simethicone 80 mg 07/05/20 04:37 07/07/20 00:02 Simethicone Chewable 80 Mg Tab PO 80 mg PCHS PRN Administration Gas Pain - Exam General - other findings: Mild distress due to nausea and pain Eye: PERRL, anicteric sclera ENT: normocephalic atraumatic, no oropharyngeal lesions, moist mucosa Heart: RRR, no murmur, no gallops, no rubs, normal peripheral pulses Respiratory: CTAB, no wheezes, no rales, no ronchi, normal chest expansion, no tachypnea, normal percussion Gastrointestinal: tender to palpation, distended, diminished bowl sounds Extremities: no cyanosis, no clubbing, no edema Musculoskeletal: normal tone, normal strength, no muscle wasting Hosp A/P - Plan A/P: Admitted with abdominal pain & BRBPR with CT evidence of inflammatory changes to splenic flexure - sigmoid colon suggestive of ischemic colitis. # BRPPR: Suggestive of ischemic colitis. Does not appear septic/toxic but does appear acutely ill due to intermittent pain. CT scan on 07-08-20 appears to show some evidence of obstruction. Evaluated by GI who advices to continue with conservative management. Consideration for repeating colonoscopy and surgical evaluation pending progression over next 24-48 hrs. Continue with current course of IV ABX, IVF, IV Protonix. Keep NPO. # COPD: No evidence of acute exacerbation. Continue with current regimen. # HTN: Continue with current regimen of low dose Losartan. BP in the lower side. Monitor hemodynamics closely. # Hx of AF: Not on AC. Continue with Cardizem and Multaq. DISPOSITION: Not medically ready for discharge. Transition to NPO diet. Continue with IV ABX, IVF, Protonix, pain control per above plan.
[2020-07-08] MEDS: Mometasone Furoate 120 PUFF 220 MCG INH SCH (18:57)
[2020-07-08] MEDS: Lidocaine Patch Removal 1 EACH TOP SCH (19:41)
[2020-07-09] MEDS: Sodium Chloride 0.9% 1,000 ML IV SCH ×2 (02:07→11:22)
[2020-07-09] MEDS: metroNIDAZOLE 500 MG in Premix Bag 1 BAG IVPB SCH ×3 (02:09→19:26)
[2020-07-09] MEDS: Simethicone Chewable 80 MG TAB PO PRN (02:12)
[2020-07-09] MEDS ORDERED: diphenhydrAMINE 50 MG/ML VIAL IVP PRN (02:32)
[2020-07-09] MEDS ORDERED: diphenhydrAMINE 50 MG/ML VIAL IVP SCH (02:45)
[2020-07-09] MEDS: Ipratropium Bromide 2.5 ml Neb NEB SCH ×3 (06:29→21:38)
[2020-07-09] MEDS: Aspirin Chewable 81 MG TAB PO SCH (08:30)
[2020-07-09] MEDS: Pantoprazole 40 MG VIAL IVP SCH ×2 (08:30→22:09)
[2020-07-09] MEDS: HYDROcodone/Acetaminophen 10/325 mg Tablet PO PRN (08:31)
[2020-07-09] MEDS: Cyclobenzaprine 10 MG TAB PO SCH (08:31)
[2020-07-09] MEDS: Lorazepam 1 MG TAB PO PRN (08:32)
[2020-07-09] MEDS: Montelukast Sodium 10 mg Tablet PO SCH (08:32)
[2020-07-09] MEDS: Losartan 25 MG TAB PO SCH (08:32)
[2020-07-09] MEDS: Escitalopram Oxalate 10 mg Tablet PO SCH (08:33)
[2020-07-09] MEDS: Lidocaine 5% Patch TD SCH (08:33)
[2020-07-09] MEDS: Gabapentin 400 MG CAP PO SCH ×3 (08:33→21:00)
[2020-07-09] MEDS: Dronedarone HCl 400 MG TAB PO SCH ×3 (08:33→22:08)
[2020-07-09] MEDS: Dicyclomine 20 MG TAB PO SCH (08:37)
[2020-07-09] MEDS ORDERED: Succinylcholine 200 MG/10 ml SYRINGE FS ONE (09:02)
[2020-07-09] MEDS ORDERED: Lidocaine 1% PF 5 ML VIAL ONE (09:02)
[2020-07-09] MEDS ORDERED: PHENYLEPHRINE-NS 100 MCG/ML 10 ML SYRINGE ONE (09:02)
[2020-07-09] MEDS ORDERED: ePHEDrine 50 MG/ML VIAL ONE (09:02)
[2020-07-09] MEDS ORDERED: PROPOFOL 200 MG/20 ML VIAL ONE (09:02)
--- NOTE | 2020-07-09 10:38 | PDOC.PALCO ---
Palliative Care Consult - Consult Details Requesting Physician: Dr Lacy/Hospitalist group Reason for Consult: goals of care, advance directives assistance - Pertinent HPI Patient is a 64 year old female who presented to the emergency room with abdominal pain with bright red rectal bleeding. EGD outpatient 07/03 secondary to persistent abdominal pain. No specific findings other than inflammation and was prescribed a PPI. Persistent abdominal discomfort, bloating, constipation that persisted. Syncopal episode post bowel movement without injury. Admitted for further evaluation and workup. - Pertinent PMH COPD, CHF, History of DVT, Dysphagia, Hep C, HTN, Atrial Flutter - Social History Smoking Status: Former smoker Smoking: quit greater than 1 year Alcohol Use: none Drug Use History: none Living Situation: independent - Medications MAR Reviewed: Yes - Allergies Allergies/Adverse Reactions: Allergies Allergy/AdvReac Type Severity Reaction Status Date / Time baclofen Allergy Verified 07/05/20 02:26 ketorolac [From Toradol] Allergy Verified 10/19/19 19:38 levofloxacin [From Levaquin] Allergy Verified 10/19/19 19:38 Penicillins Allergy Verified 10/19/19 19:38 tizanidine Allergy Verified 07/05/20 02:26 tramadol Allergy Verified 10/19/19 19:38 - ROS Constitutional: alert, loss appetite, weakness ENT: dry mouth Respiratory: shortness of breath (related to abdominal pain) Cardiology: other (Denies chest pain or discomfort) Gastrointestinal: abdominal pain, constipation, stomach discomfort Psychological: anxiety - Objective Vital Signs: Vital Signs - Most Recent Temp Pulse Resp BP Pulse Ox 98.2 F 98 22 H 123/76 94 L 07/09/20 07:23 07/09/20 08:32 07/09/20 07:23 07/09/20 08:32 07/09/20 07:23 Palliative Performance Scale: 50 - Physical Exam Constitutional: ill appearing, mild distress HEENT: moist MMs Deviation from normal: dry mucous membranes Respiratory: no wheezing, tachypnea Cardiovascular: RRR Deviation from normal: tachycardia Deviation from normal: Distended, tender to palpation, firm. Genitourinary: continent Musculoskeletal: no clubbing, no edema Neurology: moves all 4 limbs, no focal deficits Skin: cap refill <2 seconds Psychiatric: A&O x 3 - Problem List (1) Palliative care encounter Code(s): Z51.5 - ENCOUNTER FOR PALLIATIVE CARE Current Visit: Yes Status: Acute (2) Abdominal pain Code(s): R10.9 - UNSPECIFIED ABDOMINAL PAIN Current Visit: No Status: Acute (3) Anxiety Code(s): F41.9 - ANXIETY DISORDER, UNSPECIFIED Current Visit: No Status: Chronic (4) COPD (chronic obstructive pulmonary disease) Current Visit: No Status: Chronic (5) Constipation Code(s): K59.00 - CONSTIPATION, UNSPECIFIED Current Visit: No Status: Chronic - Plan/Recommendations Plan: Biotene for dry mouth. provided lemon swabs Encouraged to sit on bedside commode and attempt to relax and release gas Communicated with Dr Glover in relation to increase in abdominal pain and distended abdomen. Confirmed DNAR status, will follow up in relation to Directives and MPOA when she is not in distress with pain. Emotional support and therapeutic listening. [55] minutes spent on this encounter with >50% of the time in counseling and coordination of care. Thank you for this very appropriate consult.
[2020-07-09] MEDS: BIOTENE MOUTH SPRAY 44.3 ML PO SCH ×3 (13:33→21:01)
--- NOTE | 2020-07-09 13:40 | RAD ---
KUB: 07/09/20 COMPARISON: CT abdomen/pelvis 07/08/20. HISTORY: Follow-up bowel obstruction. FINDINGS: An anterior view of the abdomen shows air filled loops of bowel in the abdomen which are predominantl y colon. Contrast is seen in the right colon. Multiple phleboliths are seen in the pelvis. The patien t has a right hip prosthesis. IMPRESSION: Distended air filled colon with residual contrast in the right colon as above. POS: EAA
[2020-07-09] MEDS: cefTRIAXone\\ROCEPHIN 1 GM in Sodium Chloride 0.9% 100 ML IVPB SCH (17:24)
--- NOTE | 2020-07-09 17:25 | PDOC.HOSPP ---
- Subjective Encounter Date: 07/09/20 Subjective: Seen and examined this morning at bedside. Being followed for possible ischemic colitis and bowel obstruction. This morning she appears to be more distended and with more discomfort than yesterday. She did have some small amount of emesis overnight and this morning. Denies any fever or chills. Refers no BM of flatus now for several days. GI contacted for discussion of above findings. KUB ordered and GI to assess patient later for possible c-scope. - Objective Vital Signs & Weight: Vital Signs (12 hours) Temp Pulse Resp BP BP Pulse Ox 07/09/20 13:10 98.3 F 88 20 122/78 95 07/09/20 12:58 89 16 95 07/09/20 08:32 98 123/76 07/09/20 07:23 98.2 F 98 22 H 123/76 94 L 07/09/20 06:29 92 16 92 L Weight Admit Weight 119 lb 9.6 oz Weight 119 lb 9.6 oz I&O: 07/08/20 07/09/20 07/10/20 06:59 06:59 06:59 Intake Total 1300 Balance 1300 Result Diagrams: 07/08/20 06:22 07/08/20 06:22 Hospitalist ROS - Review of Systems Constitutional: denies: fever, chills, sweats, weakness, malaise, other Respiratory: denies: cough, dry, shortness of breath, hemoptysis, SOB with excertion, pleuritic pain, sputum, wheezing, other Cardiovascular: denies: chest pain, palpitations, orthopnea, paroxysmal noc. dyspnea, edema, light headedness, other Gastrointestinal: reports: nausea, vomiting, abdominal pain, constipation - Medication Medications: Active Medications Generic Name Dose Route Start Last Admin Trade Name Freq PRN Reason Stop Dose Admin Hydrocodone Bitart/Acetaminophen 1 tab 07/07/20 14:36 07/09/20 08:31 Hydrocodone/Acetaminophen 10/325 Mg Tablet PO 1 tab QIDPRN PRN Administration Moderate Pain (4-6) Aspirin 81 mg 07/05/20 09:00 07/09/20 08:30 Aspirin Chewable 81 Mg Tab PO 81 mg DAILY SHANTELLE Administration Diltiazem HCl 120 mg 07/06/20 09:00 07/09/20 08:32 Diltiazem Cd 120 Mg Cap PO 120 mg DAILY SHANTELLE Administration Dronedarone 400 mg 07/05/20 08:00 07/09/20 08:33 Dronedarone Hcl 400 Mg Tab PO 400 mg BID-WM SHANTELLE Administration Escitalopram Oxalate 5 mg 07/05/20 09:00 07/09/20 08:33 Escitalopram Oxalate 10 Mg Tablet PO Not Given DAILY SHANTELLE Gabapentin 800 mg 07/05/20 21:00 07/09/20 08:33 Gabapentin 400 Mg Cap PO Not Given TID SHANTELLE Metronidazole 500 mg/ Device 100 mls @ 100 mls/hr 07/05/20 18:00 07/09/20 10:43 IVPB 100 mls 0200,1000,1800 SHANTELLE Administration Ceftriaxone Sodium 1 gm/ 100 mls @ 200 mls/hr 07/05/20 17:00 07/08/20 17:02 Sodium Chloride IVPB 100 mls 1700 SHANTELLE Administration Sodium Chloride 1,000 mls @ 100 mls/hr 07/06/20 13:56 07/09/20 11:22 Normal Saline 0.9% IV Not Given .Q10H SHANTELLE Ipratropium [place] 2.5 ml 07/05/20 06:30 07/09/20 12:58 Ipratropium [place] 2.5 Ml Neb NEB 2.5 ml TID-RT SHANTELLE Administration Lidocaine 1 patch 07/07/20 09:00 07/09/20 08:33 Lidocaine 5% Patch TD 1 patch DAILY SHANTELLE Administration Lorazepam 1 mg 07/05/20 04:29 07/09/20 08:32 Lorazepam 1 Mg Tab PO 1 mg Q8HR PRN Administration Anxiety Losartan Potassium 25 mg 07/05/20 09:00 07/09/20 08:32 Losartan 25 Mg Tab PO 25 mg DAILY SHANTELLE Administration Miscellaneous Medication 1 each 07/07/20 21:00 07/08/20 19:41 Lidocaine Patch Removal 1 Each TOP Not Given 2100 SHANTELLE Miscellaneous Medication 1 ml 07/09/20 13:00 07/09/20 13:33 Biotene [place]outh [place] 44.3 Ml PO 07/10/20 05:01 Not Given Q4HR SHANTELLE Mometasone Furoate 1 puff 07/06/20 18:30 07/08/20 18:57 Mometasone Furoate 120 Puff 220 Mcg INH Not Given 1830 SHANTELLE Montelukast Sodium 10 mg 07/06/20 09:00 12/09/20 08:32 Montelukast Sodium 10 Mg Tablet PO 10 mg DAILY SHANTELLE Administration Ondansetron HCl 4 mg 07/07/20 22:04 07/07/20 22:15 Ondansetron Pf 4 Mg/2 Ml Vial IVP 4 mg Q6H PRN Administration Nausea/Vomiting Pantoprazole Sodium 40 mg 07/05/20 09:00 07/09/20 08:30 Pantoprazole 40 Mg Vial IVP 40 mg BID SHANTELLE Administration Polyethylene Glycol 17 gm 07/05/20 17:00 07/08/20 17:09 Polyethylene Glycol 3350 17 Gm Packet PO 17 gm 1700 SHANTELLE Administration Simethicone 80 mg 07/05/20 04:37 07/09/20 02:12 Simethicone Chewable 80 Mg Tab PO 80 mg PCHS PRN Administration Gas Pain - Exam General Appearance: ill appearing General - other findings: Acute distress due to pain and nausea Heart: RRR, no murmur, no gallops, no rubs, normal peripheral pulses Respiratory: CTAB, no wheezes, no rales, no ronchi, normal chest expansion, no tachypnea, normal percussion Gastrointestinal - other findings: diffuse tenderness, distention, timpanic sound, no true rigidity Hosp A/P - Plan A/P: Admitted with abdominal pain & BRBPR with CT evidence of inflammatory changes to splenic flexure - sigmoid colon suggestive of ischemic colitis. # BRPPR: Suggestive of ischemic colitis. Does not appear septic/toxic but does appear acutely ill due to intermittent pain. CT scan on 07-08-20 appears to show some evidence of obstruction. This morning appears more distended as well as more symptomatic. Will consider NGT placement. Case discussed with GI attending who is considering colonoscopy this afternoon. Will order KUB for re- evaluation. Pending colonoscopy results may also need surgical evaluation. Continue with current course of IV ABX, IVF, IV Protonix. Keep NPO. # COPD: No evidence of acute exacerbation. Continue with current regimen. # HTN: Continue with current regimen of low dose Losartan. BP in the lower side. Monitor hemodynamics closely. # Hx of AF: Not on AC. Continue with Cardizem and Multaq. DISPOSITION: Possible colonoscopy today. Continue with IV ABX, IVF, Protonix, pain control per above plan.
[2020-07-09] MEDS: Polyethylene Glycol 3350 17 GM Packet PO SCH (18:25)
--- NOTE | 2020-07-09 18:51 | PRG ---
DATE OF SERVICE: 07/09/2020 SUBJECTIVE: Ms. Salazar states today she has not passed gas in several days from below. Her abdomen is hurting more. I did get a plain film that shows a distended ascending colon. OBJECTIVE: VITAL SIGNS: Temperature is 98, respirations 20, blood pressure 122/78. GENERAL: She is thin. LUNGS: Clear. HEART: Regular rhythm. ABDOMEN: Distended. It is firm. Bowel sounds are quiescent. EXTREMITIES: Reveal no clubbing, cyanosis, or edema. LABORATORY DATA: White count 3.5, hemoglobin 12.3, platelet count 219, 1% bands, 50% segs. Sodium 140, potassium 3.7, BUN and creatinine are 18 and 4.6. Liver function tests were normal on 01/10. Albumin was 3.2, total protein was 5. Plain films were read by myself. ASSESSMENT: The patient was admitted with a gastrointestinal bleed. It was felt that this was from ischemic colitis. Her abdomen has become more distended in the past couple of days. A CT scan yesterday showed what appeared to be some transition zone in the descending colon region with concern for obstructed colon. The hospitalist called me personally and states that he thinks her abdomen is more tense and she is more tender. PLAN: 1. NG tube placement. 2. Stop dicyclomine and cyclobenzaprine as they would inhibit motility of the colon. 3. Start IV fluids. She will continue IV fluids 100 an hour. 4. Emergent colonoscopy for attempted decompression to evaluate the cause of her obstruction. 5. The patient may need a surgical consult. 6. I have discussed with the patient risk of perforation with or without the procedure and the possible need for surgery to rectify her problem, placed the patient on for this is emergency procedure at noon today with the operating room at [place]. They are aware of the urgent nature of this case. Job ID: [id number]
--- NOTE | 2020-07-09 19:17 | OP ---
DATE OF PROCEDURE: 07/09/2020 PROCEDURE PERFORMED: Colonoscopy. PREOPERATIVE DIAGNOSES: 1. Abdominal distention. 2. CT and x-rays concerning for colonic obstruction at splenic fracture and proximal dilatation, Brent's versus mechanical obstruction. 3. Recent episode of colitis, suspected to be ischemic. POSTPROCEDURE DIAGNOSES: 1. Definite findings of ischemic colitis with focal antimesenteric edema and ulceration in the sigmoid and splenic flexure region. 2. Pseudomembranes in the transverse colon and some areas scattered in the descending and sigmoid. Biopsies were taken from both areas. 3. Stool sample sent for Clostridium difficile. 4. Proximal colon very distended and desufflated. Multiple attempts to place decompression tube would not advance through the very tortuous sigmoid colon. RECOMMENDATIONS: 1. Keep NG tube in place. 2. Stop Rocephin. 3. Add p.o. vancomycin. If the patient cannot tolerate the p.o. vancomycin, we have to give her vancomycin enemas until the C diff is back. 4. Continue IV fluids. 5. Continue to monitor laboratory function. 6. Discontinue all narcotics, muscle relaxants, and antispasmodics, these will all worsen her predilection towards Brent's and toxic megacolon. ANESTHESIA: TIVA. DESCRIPTION OF PROCEDURE: After the patient was informed of the risks, benefits, and possible complications of endoscopy including perforation, reaction to medication, aspiration, informed consent was obtained. The patient was brought to endoscopy suite, where she was sedated in gradual fashion. Once she was comfortable, rectal examination was performed. Endoscope was then advanced into the anal canal through the colon to the cecum, which was identified by ileocecal valve and the appendiceal orifice. This was a very tortuous exam, we needed a lot of water insufflation and decompression and pressure to get around to the cecum. The right colon was very distended, but no signs of ulceration or ischemia was desufflated. In the region of the transverse colon, there were some pseudomembranes, like C diff, which were biopsied. In the region of the splenic flexure, there was antimesenteric ulceration and erosion in a linear fashion consistent with ischemic colitis, which was biopsied. There were few more pseudomembranes in the descending colon and a few more ischemic changes in the sigmoid colon. Biopsies were taken of both areas and submitted to Pathology. A wire was left in place in the colon to see if we could get a rectal tube over this. The sigmoid colon was very tortuous, which made exam very difficult. Multiple attempts to get the rectal decompression tube out beyond the distal sigmoid colon were unsuccessful. Ultimately, the scope was inserted into the beginning of the colon. Again, the whole colon was desufflated and the scope was removed. The patient's abdomen was flat after the procedure. The patient tolerated the procedure well. There were no complications. Job ID: [id number]
--- NOTE | 2020-07-09 19:30 | RAD ---
KUB: Date: 07/09/2020 HISTORY: NG tube placement. COMPARISON: Earlier exam same date. FINDINGS: NG tube has been placed. The tip is in the left upper quadrant overlying the stomach. Mild gaseous di stention of the abdomen is still present. IMPRESSION: NG tube in satisfactory position. POS: LOULOU
[2020-07-09] MEDS: Lidocaine Patch Removal 1 EACH TOP SCH (21:01)
[2020-07-09] MEDS: Mometasone Furoate 120 PUFF 220 MCG INH SCH (21:50)
[2020-07-09] MEDS ORDERED: metroNIDAZOLE 500 MG in Premix Bag 1 BAG IVPB SCH (22:00)
[2020-07-09] MEDS: Dextrose 5 % And 0.9 % NaCl 1,000 ML IV SCH (22:09)
[2020-07-09] MEDS: Vancomycin HCl 25 MG/ML Oral PER TUBE SCH (22:11)
[2020-07-09] MEDS: Saccharomyces boulardii 250 MG CAP PO SCH (22:11)
[2020-07-10] MEDS: Lorazepam 1 MG TAB PO PRN ×2 (00:09→16:48)
[2020-07-10] MEDS: BIOTENE MOUTH SPRAY 44.3 ML PO SCH ×2 (00:13→04:11)
[2020-07-10] MEDS: metroNIDAZOLE 500 MG in Premix Bag 1 BAG IVPB SCH ×4 (01:35→23:37)
[2020-07-10] MEDS: Vancomycin HCl 25 MG/ML Oral PER TUBE SCH ×4 (03:38→22:31)
[2020-07-10] MEDS: Dextrose 5 % And 0.9 % NaCl 1,000 ML IV SCH ×2 (06:15→18:24)
[2020-07-10 08:12] LABS: #Eosinphils 0.1 thou/uL (0.0-0.7); #Lymphocytes 0.6 thou/uL (1.20-3.40); #Monocytes 0.5 thou/uL (0.11-0.59); #Neutrophils 2.8 thou/uL (1.40-6.50); %Basophils 0.5 % (0.0-1.0); %Eosinophils 3.6 % (0.0-10.0); %Lymphocytes 14.7 % (21.0-51.0); %Neutrophils 69.1 % (42.0-75.0); Hemoglobin 12.6 g/dL (12.0-16.0); Mean Corpuscular Hemoglobin 31.6 pg (27.0-31.0); Mean Corpuscular Volume 92.9 fL (78.0-98.0); Mean Platelet Volume 7.7 fL (7.4-10.4); Platelet Count 237 thou/uL (130-400); RBC Distribution Width 11.6 % (11.5-14.5); Red Blood Cell (RBC) Count 3.98 mill/uL (4.20-5.40)
[2020-07-10 08:26] LABS: ALT (SGPT) 9 U/L (8-55); AST (SGOT) 16 U/L (5-34); Albumin 3.5 g/dL (3.4-4.8); Alkaline Phosphatase 50 U/L (40-110); Anion Gap 14 mmol/L (10-20); BUN (Urea Nitrogen) Less than 4 mg/dL (9.8-20.1); Bilirubin, Total 0.2 mg/dL (0.2-1.2); Calc. Creatinine Clearance 86 mL/min (70-130); Calcium 7.4 mg/dL (7.8-10.44); Carbon Dioxide 23 mmol/L (23-31); Chloride 104 mmol/L (98-107); Globulin 1.9 g/dL (2.4-3.5); Glucose 145 mg/dL (80-115); Magnesium 1.6 mg/dL (1.6-2.6); Protein, Total 5.4 g/dL (6.0-8.3); Sodium 138 mmol/L (136-145)
[2020-07-10] MEDS: Ondansetron PF 4 MG/2 ML Vial IVP PRN (08:52)
[2020-07-10 08:57] LABS: Phosphorus 1.3 mg/dL (2.3-4.7); Potassium 2.8 mmol/L (3.5-5.1)
[2020-07-10] MEDS: Pantoprazole 40 MG VIAL IVP SCH ×2 (09:11→21:25)
[2020-07-10] MEDS: Dronedarone HCl 400 MG TAB PO SCH ×2 (09:11→16:48)
[2020-07-10] MEDS: Saccharomyces boulardii 250 MG CAP PO SCH ×2 (09:11→21:25)
[2020-07-10] MEDS: Aspirin Chewable 81 MG TAB PO SCH (09:11)
[2020-07-10] MEDS: Losartan 25 MG TAB PO SCH (09:12)
[2020-07-10] MEDS: Gabapentin 400 MG CAP PO SCH ×3 (09:12→21:06)
[2020-07-10] MEDS: Montelukast Sodium 10 mg Tablet PO SCH (09:13)
[2020-07-10] MEDS: Escitalopram Oxalate 10 mg Tablet PO SCH (09:13)
[2020-07-10] MEDS: Ipratropium Bromide 2.5 ml Neb NEB SCH ×3 (09:13→21:37)
--- NOTE | 2020-07-10 10:32 | RAD ---
KUB AND UPRIGHT: HISTORY: Followup of colonoscopy decompression. FINDINGS: Residual contrast from a previous CT is seen within the colon. Colonic distention is slightly improv ed as compared to that prior study. NG tube remains with the tip in the stomach. No free air demons trated. IMPRESSION: No evidence of free air. Slight decrease in colonic distention. POS: LOULUO
[2020-07-10] MEDS ORDERED: Potassium Chloride 10 MEQ in Premix Bag 1 BAG IVPB SCH (12:00)
[2020-07-10] MEDS ORDERED: Potassium Phosphate 30 MMOL in Sodium Chloride 0.9% 250 ML 250 ML IVPB SCH (12:00)
[2020-07-10] MEDS ORDERED: Magnesium 2 GM/50 ML 2 GM in Premix Bag 1 BAG IVPB SCH (12:00)
--- NOTE | 2020-07-10 16:49 | PDOC.HOSPP ---
- Subjective Encounter Date: 07/10/20 Subjective: Patient seen and examined this morning at bedside. She did undergo emergent colonoscopy on 07-09-20 with findings suggestive of ischemic colitis and some pseudomembranes suggestive of C.diff. Her abdomen did decompress after procedure but this morning she remains with some discomfort & nausea but no vomiting. Still no BM or flatus. Transitioned to PO Vancomycin and IV Flagyl for empiric treatment of C.diff until results of sigmoid samples are back. - Objective Vital Signs & Weight: Vital Signs (12 hours) Temp Pulse Resp BP Pulse Ox 07/10/20 15:29 98.1 F 95 15 125/70 94 L 07/10/20 11:36 98.1 F 98 16 130/72 92 L 07/10/20 09:20 83 07/10/20 08:03 98.3 F 83 15 132/75 93 L 07/10/20 08:00 93 L Weight Admit Weight 119 lb 9.6 oz Weight 119 lb 9.6 oz Result Diagrams: 07/10/20 07:41 07/10/20 07:41 Hospitalist ROS - Review of Systems Constitutional: denies: fever, chills, sweats, weakness, malaise, other Respiratory: denies: cough, dry, shortness of breath, hemoptysis, SOB with excertion, pleuritic pain, sputum, wheezing, other Cardiovascular: denies: chest pain, palpitations, orthopnea, paroxysmal noc. dyspnea, edema, light headedness, other Gastrointestinal: reports: nausea, abdominal pain, constipation, other (No BM or flatus) - Medication Medications: Active Medications Generic Name Dose Route Start Last Admin Trade Name Kaleb PRN Reason Stop Dose Admin Aspirin 81 mg 07/05/20 09:00 07/10/20 09:11 Aspirin Chewable 81 Mg Tab PO 81 mg DAILY SHANTELLE Administration Diltiazem HCl 120 mg 07/06/20 09:00 07/10/20 09:20 Diltiazem Cd 120 Mg Cap PO Not Given DAILY SHANTELLE Dronedarone 400 mg 07/05/20 08:00 07/10/20 09:11 Dronedarone Hcl 400 Mg Tab PO 400 mg BID- SHANTELLE Administration Escitalopram Oxalate 5 mg 07/05/20 09:00 07/10/20 09:13 Escitalopram Oxalate 10 Mg Tablet PO Not Given DAILY SHANTELLE Gabapentin 800 mg 07/05/20 21:00 07/10/20 09:12 Gabapentin 400 Mg Cap PO Not Given TID SHANTELLE Metronidazole 500 mg/ Device 100 mls @ 100 mls/hr 07/05/20 18:00 07/10/20 09:10 IVPB 100 mls 0200,1000,1800 SHANTELLE Administration Dextrose/Sodium Chloride 1,000 mls @ 100 mls/hr 07/09/20 21:00 07/10/20 06:15 D5 0.9% Ns IV 1,000 mls .Q10H SHANTELLE Administration Ipratropium [place] 2.5 ml 07/05/20 06:30 07/10/20 15:22 Ipratropium [place] 2.5 Ml Neb NEB Not Given TID-RT SHANTELLE Lidocaine 1 patch 07/07/20 09:00 07/09/20 08:33 Lidocaine 5% Patch TD 1 patch DAILY SHANTELLE Administration Lorazepam 1 mg 07/05/20 04:29 07/10/20 00:09 Lorazepam 1 Mg Tab PO 1 mg Q8HR PRN Administration Anxiety Losartan Potassium 25 mg 07/05/20 09:00 07/10/20 09:12 Losartan 25 Mg Tab PO 25 mg DAILY SHANTELLE Administration Miscellaneous Medication 1 each 07/07/20 21:00 07/09/20 21:01 Lidocaine Patch Removal 1 Each TOP Not Given 2100 [facility] Mometasone Furoate 1 puff 07/06/20 18:30 07/09/20 21:50 Mometasone Furoate 120 Puff 220 Mcg INH Not Given 1830 [facility] Montelukast Sodium 10 mg 07/06/20 09:00 07/10/20 09:13 Montelukast Sodium 10 Mg Tablet PO Not Given DAILY [facility] Ondansetron HCl 4 mg 07/07/20 22:04 07/10/20 08:52 Ondansetron Pf 4 Mg/2 Ml Vial IVP 4 mg Q6H PRN Administration Nausea/Vomiting Pantoprazole Sodium 40 mg 07/05/20 09:00 07/10/20 09:11 Pantoprazole 40 Mg Vial IVP 40 mg BID SHANTELLE Administration Polyethylene Glycol 17 gm 07/05/20 17:00 07/09/20 18:25 Polyethylene Glycol 3350 17 Gm Packet PO Not Given 1700 [facility] Saccharomyces Boulardii 250 mg 07/09/20 21:00 07/10/20 09:11 Saccharomyces Boulardii 250 Mg Cap PO 250 mg BID SHANTELLE Administration Simethicone 80 mg 07/05/20 04:37 07/09/20 02:12 Simethicone Chewable 80 Mg Tab PO 80 mg PCHS PRN Administration Gas Pain Vancomycin HCl 500 mg 07/09/20 21:00 07/10/20 11:27 Vancomycin Hcl 25 Mg/Ml Oral PER TUBE 500 mg 0300,0900,1500,2100 SHANTELLE Administration - Exam General Appearance: ill appearing Eye: PERRL, anicteric sclera Neck: supple, symmetric, no JVD Heart: RRR, no murmur, no gallops Respiratory: CTAB, no wheezes, no rales, no ronchi Gastrointestinal: soft, no rigidity, tender to palpation, voluntary guarding Neurological: cranial nerve grossly intact, normal sensation to touch, no weakness, no focal deficits, no new deficit Musculoskeletal: normal tone, normal strength Hosp A/P - Plan A/P: Admitted with abdominal pain & BRBPR with CT evidence of inflammatory changes to splenic flexure - sigmoid colon suggestive of ischemic colitis. # BRPPR: S/p emergent colonoscopy on 07-09-20 with findings of ischemic colitis as well as some pseudomembranes. During my exam she appears in some distress but non toxic. CT scan on 07-08-20 appears to show some evidence of obstruction. Although her abdomen appears now soft and decompressed after NGT and colonoscopy she remains rather symptomatic. Per GI avoid narcotics, muscle relaxants, antispasmodics. Antibiotics adjusted to PO Vancomycin and Flagyl for coverage of C.diff. Sigmoid samples are pending. Keep NPO. # Electrolyte imbalance: Hypokalemia, hypophosphatemia, hypomagnesemia. Replacement with IV KPhos, KCl, Mg. Recheck lytes this afternoon. # COPD: No evidence of acute exacerbation. Monitor. # HTN: Stable. Monitor. # Hx of AF: Not on AC. Continue with Cardizem and Multaq. DISPOSITION: Keep NPO, IVF, nausea and pain control. NGT in place for decompression. ABX to target possible C.diff infection. Pending progression will consider surgical consultation.
[2020-07-10 17:36] LABS: Anion Gap 13 mmol/L (10-20); BUN (Urea Nitrogen) Less than 4 mg/dL (9.8-20.1); Calc. Creatinine Clearance 78 mL/min (70-130); Calcium 7.6 mg/dL (7.8-10.44); Carbon Dioxide 28 mmol/L (23-31); Chloride 103 mmol/L (98-107); Glucose 139 mg/dL (80-115); Magnesium 2.2 mg/dL (1.6-2.6); Sodium 141 mmol/L (136-145)
[2020-07-10 17:40] LABS: Phosphorus 1.2 mg/dL (2.3-4.7); Potassium 2.9 mmol/L (3.5-5.1)
[2020-07-10] MEDS: Lidocaine 5% Patch TD SCH (17:57)
[2020-07-10] MEDS: Polyethylene Glycol 3350 17 GM Packet PO SCH (18:24)
[2020-07-10] MEDS: Lidocaine Patch Removal 1 EACH TOP SCH (21:06)
[2020-07-10] MEDS: Mometasone Furoate 120 PUFF 220 MCG INH SCH (21:08)
--- NOTE | 2020-07-10 22:10 | PRG ---
DATE OF SERVICE: 07/10/2020 REASON FOR CONSULTATION: Ischemic colitis with possible Clostridium difficile infection with pseudomembranous colitis. SUBJECTIVE: The patient underwent colonoscopy yesterday with no complications with the procedure at that time. Today, she states that she had not passed any gas until later in afternoon when she passed multiple episodes of flatus. She did also pass a little bit of small stool, but was nothing significant. Otherwise, she states that her abdomen is feeling better with decompression with the NG tube. She currently denies any nausea, vomiting, fevers, chills, hematemesis, melena, or hematochezia. OBJECTIVE: VITAL SIGNS: Temperature 98.4, pulse 91, blood pressure 144/79, respiratory rate 18, saturating 96% on room air. GENERAL: The patient was lying in bed, in no acute distress. Alert and oriented x4. HEENT: NG tube in the left naris. CARDIOVASCULAR: Regular rate and rhythm. RESPIRATORY: Clear to auscultation bilaterally. ABDOMEN: Hypoactive bowel sounds. Soft, nondistended. Tenderness to palpation in the midepigastric and left upper quadrant. EXTREMITIES: No cyanosis, clubbing, or edema. LABORATORY DATA: CBC with a white blood cell count of 4, hemoglobin 12.6, hematocrit 37, platelets 237. Chemistry with a sodium of 138, potassium 2.8, chloride 104, CO2 of 23, BUN less than 4, creatinine 0.58, glucose 145, AST 16, ALT 9, alkaline phosphatase 50, total bilirubin 0.2. Stool studies were negative for Clostridium difficile infection. IMAGING DATA: The patient underwent colonoscopy on July 09, 2020, which showed definite findings of ischemic colitis with focal antimesenteric edema and ulceration in the sigmoid and splenic flexure regions. However, there were some scattered areas of what appeared to be pseudomembranous formation within the transverse, descending, and sigmoid colons with biopsy still pending at this time. Attempts to place a colonic decompression tube were difficult secondary to a very tortuous sigmoid colon. ASSESSMENT AND PLAN: The patient is a 64-year-old female with a past medical history of COPD, on home oxygen, bronchitis, CHF, DVT, chronic hepatitis C, atrial flutter, and hypertension, presenting with abdominal pain with ischemic colitis on colonoscopy. Ischemic colitis. The patient initially presented with increased abdominal pain and abnormal GI imaging consistent with ischemic colitis. However, she did have worsening of her abdominal pain that was concerning for perforation and/or obstruction with a transition zone in the descending colon. She subsequently underwent more urgent/emergent colonoscopy on July 09, 2020, which showed ischemic type changes within the splenic flexure and left colon consistent with ischemic colitis. However, there were some scattered white plaques embedded in the wall of the colon that were concerning for pseudomembranous colitis as well with biopsy still pending at this time, but infectious stool studies negative for the presence of C diff. At this time, the more likely diagnosis seems to be more ischemic colitis that is improving with the patient's ability to pass flatus today. She is currently being decompressed with the NG tube and doing well. RECOMMENDATIONS: 1. Continue the patient on IV fluids as long as the patient remains n.p.o. 2. With the patient passing flatus earlier today, it is hopeful for return of bowel function and may be able to be clamped tomorrow in an attempt to ascertain whether or not she has a colonic and/or intestinal ileus. 3. Repeat colonoscopy with placement of a rectal decompression tube is not indicated at this time due to lack of significant abdominal distention. 4. Would attempt to maintain normotensive pressures and avoid hypotension, which could contribute to her ischemic colitis. 5. Would attempt to avoid any medications that would inhibit colonic motility. We will continue to follow. Please call with any questions. Job ID: [id number]
[2020-07-11 02:02] LABS: #Eosinphils 0.1 thou/uL (0.0-0.7); #Lymphocytes 0.9 thou/uL (1.20-3.40); #Monocytes 0.6 thou/uL (0.11-0.59); #Neutrophils 3.2 thou/uL (1.40-6.50); %Basophils 0.2 % (0.0-1.0); %Eosinophils 3.1 % (0.0-10.0); %Lymphocytes 17.9 % (21.0-51.0); %Monocytes 11.7 % (0.0-10.0); %Neutrophils 67.1 % (42.0-75.0); Hemoglobin 13.3 g/dL (12.0-16.0); Mean Corpuscular HGB CONC 33.5 g/dL (32.0-36.0); Mean Corpuscular Hemoglobin 30.9 pg (27.0-31.0); Mean Corpuscular Volume 92.1 fL (78.0-98.0); Mean Platelet Volume 7.3 fL (7.4-10.4); Platelet Count 272 thou/uL (130-400); RBC Distribution Width 11.8 % (11.5-14.5); Red Blood Cell (RBC) Count 4.31 mill/uL (4.20-5.40); White Blood Cell (WBC) Count 4.8 thou/uL (4.8-10.8)
[2020-07-11] MEDS: Lorazepam 1 MG TAB PO PRN ×3 (02:15→20:29)
[2020-07-11 02:48] LABS: Anion Gap 16 mmol/L (10-20); BUN (Urea Nitrogen) Less than 4 mg/dL (9.8-20.1); Calc. Creatinine Clearance 88 mL/min (70-130); Calcium 7.9 mg/dL (7.8-10.44); Carbon Dioxide 25 mmol/L (23-31); Chloride 104 mmol/L (98-107); Glucose 100 mg/dL (80-115); Magnesium 2.1 mg/dL (1.6-2.6); Phosphorus 2.8 mg/dL (2.3-4.7); Sodium 141 mmol/L (136-145)
[2020-07-11] MEDS: Vancomycin HCl 25 MG/ML Oral PER TUBE SCH ×4 (03:00→21:20)
[2020-07-11] MEDS: metroNIDAZOLE 500 MG in Premix Bag 1 BAG IVPB SCH ×2 (06:02→14:58)
[2020-07-11] MEDS: Dextrose 5 % And 0.9 % NaCl 1,000 ML IV SCH ×2 (06:10→18:40)
[2020-07-11] MEDS: Ipratropium Bromide 2.5 ml Neb NEB SCH ×3 (07:27→19:33)
--- NOTE | 2020-07-11 11:46 | RAD ---
ALEXANDRAB: Date: 07/11/2020 COMPARISON: 07/09/2020. 07/10/2020. HISTORY: NG tube placement. FINDINGS: Single view of the upper abdomen shows a NG tube in the stomach. Contrast is seen in the colon from p revious contrast examination. A few air-filled loops of small bowel are seen in the abdomen. IMPRESSION: NG tube located in the stomach. POS: EAA
[2020-07-11] MEDS: Pantoprazole 40 MG VIAL IVP SCH ×2 (11:56→20:31)
[2020-07-11] MEDS: Dronedarone HCl 400 MG TAB PO SCH ×2 (11:57→18:40)
[2020-07-11] MEDS: Losartan 25 MG TAB PO SCH (11:57)
[2020-07-11] MEDS: Escitalopram Oxalate 10 mg Tablet PO SCH (11:59)
[2020-07-11] MEDS: Gabapentin 400 MG CAP PO SCH ×3 (11:59→20:30)
[2020-07-11] MEDS: Aspirin Chewable 81 MG TAB PO SCH (11:59)
[2020-07-11] MEDS: Montelukast Sodium 10 mg Tablet PO SCH (12:00)
[2020-07-11] MEDS: Saccharomyces boulardii 250 MG CAP PO SCH ×2 (12:00→20:31)
[2020-07-11] MEDS: Lidocaine 5% Patch TD SCH (14:57)
--- NOTE | 2020-07-11 15:59 | PDOC.HOSPP ---
- Subjective Encounter Date: 07/11/20 Subjective: Seen and examined at bedside. Refers overall feeling improved however still refers nausea & abdominal discomfort/tenderness. Tells me that yesterday she was able to pass gas but has not passed any since morning although she feels the need to. Although nauseated no vomiting. NGT has been champed. - Objective Vital Signs & Weight: Vital Signs (12 hours) Temp Pulse Resp BP BP Pulse Ox 07/11/20 13:46 91 16 07/11/20 11:59 91 07/11/20 11:33 98.1 F 91 16 104/59 L 96 07/11/20 08:00 95 07/11/20 07:27 85 16 07/11/20 07:15 98.4 F 85 18 111/64 91 L 07/11/20 05:01 98.6 F 97 18 143/83 H 96 Weight Admit Weight 119 lb 9.6 oz Weight 119 lb 9.6 oz Result Diagrams: 07/11/20 01:50 07/11/20 01:50 Hospitalist ROS - Review of Systems Constitutional: denies: fever, chills, sweats Respiratory: denies: cough, dry, shortness of breath, hemoptysis, SOB with excertion, pleuritic pain, sputum, wheezing, other Cardiovascular: denies: chest pain, palpitations, orthopnea, paroxysmal noc. dyspnea, edema, light headedness, other Gastrointestinal: reports: nausea, abdominal pain, constipation. denies: vomiting Genitourinary: denies: dysuria, frequency, incontinence, hematuria, retention, other Musculoskeletal: denies: neck pain, shoulder pain, arm pain, back pain, hand pain, leg pain, foot pain, other - Medication Medications: Active Medications Generic Name Dose Route Start Last Admin Trade Name Freq PRN Reason Stop Dose Admin Aspirin 81 mg 07/05/20 09:00 07/11/20 11:59 Aspirin Chewable 81 Mg Tab PO 81 mg DAILY SHANTELLE Administration Diltiazem HCl 120 mg 07/06/20 09:00 07/11/20 11:59 Diltiazem Cd 120 Mg Cap PO Not Given DAILY SHANTELLE Dronedarone 400 mg 07/05/20 08:00 07/11/20 11:57 Dronedarone Hcl 400 Mg Tab PO 400 mg BID- SHANTELLE Administration Escitalopram Oxalate 5 mg 07/05/20 09:00 07/11/20 11:59 Escitalopram Oxalate 10 Mg Tablet PO Not Given DAILY SHANTELLE Gabapentin 800 mg 07/05/20 21:00 07/11/20 14:29 Gabapentin 400 Mg Cap PO Not Given TID SHANTELLE Dextrose/Sodium Chloride 1,000 mls @ 100 mls/hr 07/09/20 21:00 07/11/20 06:10 D5 0.9% Ns IV 1,000 mls .Q10H SHANTELLE Administration Metronidazole 500 mg/ Device 100 mls @ 100 mls/hr 07/10/20 22:00 07/11/20 14:58 IVPB 100 mls 0600,1400,2200 SHANTELLE Administration Ipratropium [place] 2.5 ml 07/05/20 06:30 07/11/20 13:46 Ipratropium [place] 2.5 Ml Neb NEB 2.5 ml TID-RT SHANTELLE Administration Lidocaine 1 patch 07/07/20 09:00 07/11/20 14:57 Lidocaine 5% Patch TD 1 patch DAILY SHANTELLE Administration Lorazepam 1 mg 07/05/20 04:29 07/11/20 11:57 Lorazepam 1 Mg Tab PO 1 mg Q8HR PRN Administration Anxiety Losartan Potassium 25 mg 07/05/20 09:00 07/11/20 11:57 Losartan 25 Mg Tab PO 25 mg DAILY SHANTELLE Administration Miscellaneous Medication 1 each 07/07/20 21:00 07/10/20 21:06 Lidocaine Patch Removal 1 Each TOP Not Given 2100 SHANTELLE Mometasone Furoate 1 puff 07/06/20 18:30 07/10/20 21:08 Mometasone Furoate 120 Puff 220 Mcg INH Not Given 1830 SHANTELLE Montelukast Sodium 10 mg 07/06/20 09:00 07/11/20 12:00 Montelukast Sodium 10 Mg Tablet PO Not Given DAILY SHANTELLE Ondansetron HCl 4 mg 07/07/20 22:04 07/10/20 08:52 Ondansetron Pf 4 Mg/2 Ml Vial IVP 4 mg Q6H PRN Administration Nausea/Vomiting Pantoprazole Sodium 40 mg 07/05/20 09:00 07/11/20 11:56 Pantoprazole 40 Mg Vial IVP 40 mg BID SHANTELLE Administration Polyethylene Glycol 17 gm 07/05/20 17:00 07/10/20 18:24 Polyethylene Glycol 3350 17 Gm Packet PO Not Given 1700 SHANTELLE Saccharomyces Boulardii 250 mg 07/09/20 21:00 07/11/20 12:00 Saccharomyces Boulardii 250 Mg Cap PO 250 mg BID SHANTELLE Administration Simethicone 80 mg 07/05/20 04:37 07/09/20 02:12 Simethicone Chewable 80 Mg Tab PO 80 mg PCHS PRN Administration Gas Pain Vancomycin HCl 500 mg 07/09/20 21:00 07/11/20 12:00 Vancomycin Hcl 25 Mg/Ml Oral PER TUBE 500 mg 0300,0900,1500,2100 SHANTELLE Administration - Exam General Appearance: NAD, awake alert, ill appearing General - other findings: Improved but still in some discomfort Heart: RRR, no murmur, no gallops, no rubs, normal peripheral pulses Respiratory: CTAB, no wheezes, no rales, no ronchi, normal chest expansion, no tachypnea, normal percussion Gastrointestinal: soft, non-distended Gastrointestinal - other findings: Some tenderness but active bowel sounds Extremities: no cyanosis, no clubbing, no edema Hosp A/P - Plan A/P: Admitted with abdominal pain & BRBPR with CT evidence of inflammatory changes to splenic flexure - sigmoid colon suggestive of ischemic colitis. # BRPPR: S/p emergent colonoscopy on 07-09-20 with findings of ischemic colitis as well as some pseudomembranes. CT scan on 07-08-20 appears to show some evidence of obstruction. Although her abdomen appears now soft and decompressed after NGT and colonoscopy she remains symptomatic. She was able to pass gas yesterday but tells me she has not been able to pass gas since this morning. Per GI avoid narcotics, muscle relaxants, antispasmodics. Antibiotics adjusted to PO Vancomycin and Flagyl for coverage of C.diff. Keep NPO. # Electrolyte imbalance: Hypokalemia, hypophosphatemia, hypomagnesemia resolved. Monitor and replace PRN. # COPD: No evidence of acute exacerbation. Monitor. # HTN: Stable. Monitor. # Hx of AF: Not on AC. Continue with Cardizem and Multaq. DISPOSITION: Keep NGT, NPO, IVF, nausea and pain control. ABX to target possible C.diff infection. Sigmoid samples appear to be negative for C.diff. Will defer to GI if PO Vanc should be discontinued. Pending progression will consider surgical consultation.
[2020-07-11] MEDS: Polyethylene Glycol 3350 17 GM Packet PO SCH (16:40)
--- NOTE | 2020-07-11 17:52 | PRG ---
DATE OF SERVICE: 07/11/2020 REASON FOR CONSULTATION: Ischemic colitis with possible Clostridium difficile infection. SUBJECTIVE: For the greater portion of the day today, the patient has had her NG tube clamped and with the tube being clamped, she has had no specific exacerbation of abdominal distention or pain. She does continue to have some pain located primary in the left side and left lower quadrant, but is relatively unchanged when compared to previous. She did pass a fair amount of gas yesterday and has had the sensation to pass gas today, but has not been able to do so. Currently, she denies any nausea, vomiting, fevers, chills, hematemesis, melena, or hematochezia. OBJECTIVE: VITAL SIGNS: Temperature 98.1, pulse 91, blood pressure 104/59, respiratory rate 16, saturating 96% on room air. GENERAL: The patient was lying in bed, in no acute distress. Alert and oriented x4. CARDIOVASCULAR: Regular rate and rhythm. RESPIRATORY: Clear to auscultation bilaterally. ABDOMEN: Normoactive bowel sounds. Soft, nondistended. Mild tenderness to palpation in the left lower quadrant only. EXTREMITIES: No cyanosis, clubbing, or edema. LABORATORY DATA: CBC with a white blood cell count of 4.8, hemoglobin 13.3, hematocrit 39.7, platelets 272. Chemistry with a sodium of 141, potassium 4.0, chloride 104, CO2 of 25, BUN less than 4, creatinine 0.57, glucose 100. IMAGING DATA: Abdominal x-ray was obtained on July 11, 2020, which showed the NG tube located in appropriate position in the stomach with only a few air-filled loops of small bowel seen in the abdomen. Upon my read, the colonic distention noted a couple of days ago has significantly improved. ASSESSMENT AND PLAN: The patient is a 64-year-old female with past medical history of COPD, on home oxygen; bronchitis; CHF; DVT; chronic hepatitis C; atrial flutter; and hypertension, presenting with ischemic colitis. Ischemic colitis. The patient initially presented with increased abdominal pain and abnormal GI imaging consistent with ischemic colitis. This was confirmed via colonoscopy on July 09, 2020, with biopsies consistent with that diagnosis. However, at the time of colonoscopy, the patient did have significant dilation of her colon concerning for either colonic ileus or obstructive-type picture. She responded well to colonic decompression with the colonoscopy and did have NG tube placement in an attempt to decompress the upper GI tract. Over the last 24 to 48 hours, she has had minimal output through her NG tube and no further recurrence of abdominal distention and improvement in her abdominal pain. Her aspirate from the colonoscopy was sent for evaluation of Clostridium difficile and were negative. Biopsies were also negative for the infection. However, the patient has had significant improvement upon starting oral vancomycin, so it is unclear if she may have had C diff testing (albeit unlikely). Currently, doing well with a clamped NG tube. RECOMMENDATIONS: 1. We would continue IV fluids as long as the patient remains n.p.o. However, I would like to start the patient on a clear liquid diet and assess as tolerated. 2. We would clamp the NG tube now and if doing well in the morning, would remove the NG tube completely. 3. Would maintain normotensive pressures and avoid hypotension which could contribute to ischemic colitis. 4. Attempt to avoid any medications that would inhibit colonic motility. 5. We would continue the patient on the oral vancomycin for a total duration of therapy of 10 days, then discontinue. I would discontinue the IV metronidazole at this time as well. We will continue to follow. Please call with any questions. Job ID: [id number]
[2020-07-11] MEDS: Mometasone Furoate 120 PUFF 220 MCG INH SCH (19:34)
[2020-07-11] MEDS: Lidocaine Patch Removal 1 EACH TOP SCH (20:30)
[2020-07-11] MEDS: Chloraseptic Spray 180 ml Bottle PO PRN (23:41)
[2020-07-12] MEDS: Vancomycin HCl 25 MG/ML Oral PER TUBE SCH ×4 (04:00→20:29)
[2020-07-12] MEDS: Chloraseptic Spray 180 ml Bottle PO PRN (04:02)
[2020-07-12] MEDS: Dextrose 5 % And 0.9 % NaCl 1,000 ML IV SCH ×3 (04:02→20:30)
[2020-07-12] MEDS: Lorazepam 1 MG TAB PO PRN ×3 (04:46→22:16)
[2020-07-12 05:49] LABS: #Eosinphils 0.2 thou/uL (0.0-0.7); #Monocytes 0.7 thou/uL (0.11-0.59); #Neutrophils 2.8 thou/uL (1.40-6.50); %Basophils 0.5 % (0.0-1.0); %Eosinophils 3.8 % (0.0-10.0); %Lymphocytes 21.6 % (21.0-51.0); %Monocytes 14.1 % (0.0-10.0); Hemoglobin 12.6 g/dL (12.0-16.0); Mean Corpuscular HGB CONC 33.7 g/dL (32.0-36.0); Mean Corpuscular Hemoglobin 31.1 pg (27.0-31.0); Mean Corpuscular Volume 92.2 fL (78.0-98.0); Mean Platelet Volume 7.8 fL (7.4-10.4); Platelet Count 266 thou/uL (130-400); RBC Distribution Width 11.8 % (11.5-14.5); Red Blood Cell (RBC) Count 4.05 mill/uL (4.20-5.40); White Blood Cell (WBC) Count 4.6 thou/uL (4.8-10.8)
[2020-07-12 06:12] LABS: Anion Gap 12 mmol/L (10-20); BUN (Urea Nitrogen) Less than 4 mg/dL (9.8-20.1); Calc. Creatinine Clearance 86 mL/min (70-130); Calcium 7.5 mg/dL (7.8-10.44); Carbon Dioxide 25 mmol/L (23-31); Chloride 106 mmol/L (98-107); Glucose 137 mg/dL (80-115); Sodium 140 mmol/L (136-145)
[2020-07-12 06:16] LABS: Potassium 2.5 mmol/L (3.5-5.1)
[2020-07-12] MEDS ORDERED: Potassium Chloride 20 MEQ TAB PO SCH (06:30)
[2020-07-12] MEDS ORDERED: Potassium Chloride 40 MEQ in Sodium Chloride 0.9% 250 ML 250 ML IVPB SCH (07:00)
[2020-07-12] MEDS: Ipratropium Bromide 2.5 ml Neb NEB SCH ×3 (07:40→19:05)
[2020-07-12] MEDS ORDERED: Magnesium 2 GM/50 ML 2 GM in Premix Bag 1 BAG IVPB SCH (07:45)
--- NOTE | 2020-07-12 07:48 | PDOC.HOSPP ---
- Subjective Encounter Date: 07/12/20 Subjective: Patient seen and examined at bedside. Refers improvement on all of her symptoms now with resolution of nausea & significant improvement on her abdominal tenderness. Has been able to tolerate clears with clamped NGT. Did have a large bowel movement overnight. Has been passing gas without any further issues. Denies any fever or chills. - Objective Vital Signs & Weight: Vital Signs (12 hours) Temp Pulse Resp BP BP Pulse Ox 07/12/20 07:40 82 16 96 07/12/20 03:00 98.1 F 99 18 147/77 H 95 07/11/20 23:00 97.8 F 97 18 118/72 97 07/11/20 20:00 94 L Weight Admit Weight 119 lb 9.6 oz Weight 119 lb 9.6 oz I&O: 07/11/20 07/12/20 07/13/20 06:59 06:59 06:59 Output Total 820 Balance -820 Result Diagrams: 07/12/20 05:15 07/12/20 05:15 Hospitalist ROS - Review of Systems Constitutional: denies: fever, chills, sweats, weakness, malaise, other Respiratory: denies: cough, dry, shortness of breath, hemoptysis, SOB with excertion, pleuritic pain, sputum, wheezing, other Cardiovascular: denies: chest pain, palpitations, orthopnea, paroxysmal noc. dyspnea, edema, light headedness, other Gastrointestinal: reports: abdominal pain, diarrhea (Had large bowel movement/diarrhrea like overnight). denies: nausea, vomiting Genitourinary: reports: retention (Had episode of retention yesterday night, now voiding without issues). denies: dysuria, frequency, incontinence, hematuria, other Musculoskeletal: denies: neck pain, shoulder pain, arm pain, back pain, hand pain, leg pain, foot pain, other Neurological: denies: weakness, numbness, incoordination, change in speech, confusion, seizures, other - Medication Medications: Active Medications Generic Name Dose Route Start Last Admin Trade Name Freq PRN Reason Stop Dose Admin Aspirin 81 mg 07/05/20 09:00 07/11/20 11:59 Aspirin Chewable 81 Mg Tab PO 81 mg DAILY SHANTELLE Administration Diltiazem HCl 120 mg 07/06/20 09:00 07/11/20 11:59 Diltiazem Cd 120 Mg Cap PO Not Given DAILY SHANTELLE Dronedarone 400 mg 07/05/20 08:00 07/11/20 18:40 Dronedarone Hcl 400 Mg Tab PO 400 mg BID-WM SHANTELLE Administration Escitalopram Oxalate 5 mg 07/05/20 09:00 07/11/20 11:59 Escitalopram Oxalate 10 Mg Tablet PO Not Given DAILY SHANTELLE Gabapentin 800 mg 07/05/20 21:00 07/11/20 20:30 Gabapentin 400 Mg Cap PO Not Given TID SHANTELLE Dextrose/Sodium Chloride 1,000 mls @ 100 mls/hr 07/09/20 21:00 07/12/20 04:02 D5 0.9% Ns IV 1,000 mls .Q10H SHANTELLE Administration Potassium Chloride 40 meq/ 270 mls @ 67.5 mls/hr 07/12/20 07:00 07/12/20 07:02 Sodium Chloride IVPB 07/12/20 10:59 270 mls NOW SHANTELLE Administration Ipratropium [place] 2.5 ml 07/05/20 06:30 07/12/20 07:40 Ipratropium [place] 2.5 Ml Neb NEB 2.5 ml TID-RT SHANTELLE Administration Lidocaine 1 patch 07/07/20 09:00 07/11/20 14:57 Lidocaine 5% Patch TD 1 patch DAILY SHANTELLE Administration Lorazepam 1 mg 07/05/20 04:29 07/12/20 04:46 Lorazepam 1 Mg Tab PO 1 mg Q8HR PRN Administration Anxiety Losartan Potassium 25 mg 07/05/20 09:00 07/11/20 11:57 Losartan 25 Mg Tab PO 25 mg DAILY SHANTELLE Administration Miscellaneous Medication 1 each 07/07/20 21:00 07/11/20 20:30 Lidocaine Patch Removal 1 Each TOP 1 each 2100 SHANTELLE Administration Mometasone Furoate 1 puff 07/06/20 18:30 07/11/20 19:34 Mometasone Furoate 120 Puff 220 Mcg INH Not Given 1830 SHANTELLE Montelukast Sodium 10 mg 07/06/20 09:00 07/11/20 12:00 Montelukast Sodium 10 Mg Tablet PO Not Given DAILY SHANTELLE Ondansetron HCl 4 mg 07/07/20 22:04 07/10/20 08:52 Ondansetron Pf 4 Mg/2 Ml Vial IVP 4 mg Q6H PRN Administration Nausea/Vomiting Pantoprazole Sodium 40 mg 07/05/20 09:00 07/11/20 20:31 Pantoprazole 40 Mg Vial IVP 40 mg BID SHANTELLE Administration Phenol 5 ml 07/11/20 22:56 07/12/20 04:02 Chloraseptic [place] 180 Ml Bottle PO 1 spray PRN PRN Administration Sore Throat Polyethylene Glycol 17 gm 07/05/20 17:00 07/11/20 16:40 Polyethylene Glycol 3350 17 Gm Packet PO Not Given 1700 SHANTELLE Potassium Chloride 40 meq 07/12/20 06:30 07/12/20 07:02 Potassium Chloride 20 Meq Tab PO 07/12/20 08:30 40 meq NOW SHANTELLE Administration Saccharomyces Boulardii 250 mg 07/09/20 21:00 07/11/20 20:31 Saccharomyces Boulardii 250 Mg Cap PO 250 mg BID SHANTELLE Administration Simethicone 80 mg 07/05/20 04:37 07/09/20 02:12 Simethicone Chewable 80 Mg Tab PO 80 mg PCHS PRN Administration Gas Pain Vancomycin HCl 500 mg 07/09/20 21:00 07/12/20 04:00 Vancomycin Hcl 25 Mg/Ml Oral PER TUBE 500 mg 0300,0900,1500,2100 SHANTELLE Administration - Exam General Appearance: NAD, awake alert Heart: RRR, no murmur, no gallops, no rubs, normal peripheral pulses Respiratory: CTAB, no wheezes, no rales, no ronchi, normal chest expansion, no tachypnea, normal percussion Gastrointestinal: soft, non-distended, no palpable masses, no guarding, no rigidity, tender to palpation (Slight tenderness to palpation,) Skin: normal turgor, no lesions, no rashes Neurological: cranial nerve grossly intact, normal sensation to touch, no weakness, no focal deficits, no new deficit Musculoskeletal: normal tone, normal strength, no muscle wasting Psychiatric: normal affect, normal behavior, A&O x 3 Hosp A/P - Plan old records reviewed/req A/P: Admitted with abdominal pain & BRBPR with CT evidence of inflammatory changes to splenic flexure - sigmoid colon suggestive of ischemic colitis. # BRPPR: S/p emergent colonoscopy on 07-09-20 with findings of ischemic colitis as well as some pseudomembranes. CT scan on 07-08-20 appears to show some evidence of obstruction. Able to tolerate clears with NGT clamped. Had large bowel movement overnight, passing gas with no issues. Abdomen remains non distended. Per GI avoid narcotics, muscle relaxants, antispasmodics. Antibiotics adjusted to PO Vancomycin C.diff to complete 10 day treatment. NGT to be removed. Advance diet to full liquids. # Electrolyte imbalance: Hypokalemia & hypomagnesemia. Monitor and replace PRN. # COPD: No evidence of acute exacerbation. Monitor. # HTN: Stable. Monitor. # Hx of AF: Not on AC. Continue with Cardizem and Multaq. DISPOSITION: Great improvement over the last 48 hrs. NGT to be removed. Advancing diet. Sigmoid samples appear to be negative for C.diff. ABX to target possible C.diff infection. If continues to improve anticipate discharge in 2-3 days.
[2020-07-12] MEDS: Pantoprazole 40 MG VIAL IVP SCH ×2 (10:34→20:28)
[2020-07-12] MEDS: Aspirin Chewable 81 MG TAB PO SCH (10:34)
[2020-07-12] MEDS: Dronedarone HCl 400 MG TAB PO SCH ×2 (10:38→18:40)
[2020-07-12] MEDS: Losartan 25 MG TAB PO SCH (10:38)
[2020-07-12] MEDS: Gabapentin 400 MG CAP PO SCH ×3 (10:39→20:27)
[2020-07-12] MEDS: Saccharomyces boulardii 250 MG CAP PO SCH ×2 (10:39→20:29)
[2020-07-12] MEDS: Escitalopram Oxalate 10 mg Tablet PO SCH (10:39)
[2020-07-12] MEDS: Montelukast Sodium 10 mg Tablet PO SCH (10:39)
--- NOTE | 2020-07-12 11:31 | PRG ---
DATE OF SERVICE: 07/12/2020 REASON FOR CONSULTATION: Ischemic colitis. SUBJECTIVE: We were clamping the NG tube yesterday and were starting the patient on a clear liquid diet. The patient has been able to pass gas over the last 24 hours and even had a larger volume bowel movement at 2:00 a.m. this morning. She denied any hematochezia associated with this bowel movement. However, she does continue to have significant abdominal tenderness located primarily in the left lower quadrant and in the midepigastric regions, but is relatively unchanged from previous. Currently, she denies any nausea, vomiting, fevers, chills, hematemesis, melena, or hematochezia. OBJECTIVE: VITAL SIGNS: Temperature 97.9, pulse 99, blood pressure 119/69, respiratory rate 20, saturating 97% on room air. GENERAL: The patient was lying in bed, in no acute distress. Alert and oriented x4. CARDIOVASCULAR: Regular rate and rhythm. RESPIRATORY: Clear to auscultation bilaterally. ABDOMEN: Normoactive bowel sounds. Soft, nondistended. Tenderness to palpation in the midepigastric and left lower quadrants. EXTREMITIES: No cyanosis, clubbing, or edema. LABORATORY DATA: CBC with a white blood cell count of 4.6, hemoglobin 12.6, hematocrit 37.3, platelets 266. Chemistry with a sodium of 140, potassium 2.5, chloride 106, CO2 25, BUN less than 4, creatinine 0.58, glucose 137. IMAGING DATA: Abdominal x-ray obtained on July 11, 2020, showed a few air-filled loops of the small bowel seen in the abdomen no and some contrast seen in the colon from the previous contrast examination, but the NG tube located in proper position with no further mention on colonic dilation. ASSESSMENT AND PLAN: The patient is a 64-year-old female with past medical history of chronic obstructive pulmonary disease, on home oxygen, bronchitis, congestive heart failure, deep venous thrombosis, chronic hepatitis C, atrial flutter and hypertension presenting with ischemic colitis. Ischemic colitis. The patient initially presented with increased abdominal pain and abnormal GI imaging consistent with ischemic colitis on admission. This was confirmed via colonoscopy on July 09, 2020, with biopsies consistent with ischemic colitis. At the time, a colonoscopy was done more emergently given significant dilation of her colon that was concerning for obstruction versus ileus. During the procedure, there was no evidence of obstruction and with just the compression of the colon from the colonoscopy and NG tube suction she has not had any further dilation of her colon. Aspirate from the colonoscopy was sent for evaluation for Clostridium difficile and was negative. However, the patient is responding to administration of oral vancomycin with significant improvement in her clinical symptoms while on this antibiotic. Currently, doing well with the NG tube clamped. RECOMMENDATIONS: 1. We would advance the patient's diet to a full liquid diet. 2. We would remove the NG tube completely given the lack of colonic dilation and/or worsening symptoms with the tubing clamped for approximately 24 hours. 3. We would attempt to maintain normotensive pressures and avoid hypotension, which could contribute to ischemic colitis. 4. Attempt to avoid any medications that would inhibit colonic motility. 5. Despite the fact that the C. diff is negative on both aspirate and biopsies, given her improvement in clinical status, I would continue the oral vancomycin 500 mg q.i.d. for 10 days of total duration of therapy. 6. We will continue to follow peripherally. Please call with any questions. Job ID: [id number]
[2020-07-12] MEDS: Polyethylene Glycol 3350 17 GM Packet PO SCH (17:45)
[2020-07-12] MEDS: Lidocaine 5% Patch TD SCH (18:40)
[2020-07-12] MEDS: Mometasone Furoate 120 PUFF 220 MCG INH SCH (19:06)
[2020-07-12] MEDS: Lidocaine Patch Removal 1 EACH TOP SCH (20:28)
[2020-07-13] MEDS: Vancomycin HCl 25 MG/ML Oral PER TUBE SCH ×4 (03:45→20:18)
[2020-07-13 05:55] LABS: Anion Gap 11 mmol/L (10-20); BUN (Urea Nitrogen) Less than 4 mg/dL (9.8-20.1); Calc. Creatinine Clearance 89 mL/min (70-130); Calcium 7.4 mg/dL (7.8-10.44); Carbon Dioxide 23 mmol/L (23-31); Chloride 111 mmol/L (98-107); Glucose 113 mg/dL (80-115); Potassium 3.2 mmol/L (3.5-5.1); Sodium 142 mmol/L (136-145)
[2020-07-13 06:03] LABS: Eosinophils 5 % (0-10); Hemoglobin 12.4 g/dL (12.0-16.0); Lymphocytes 39 % (21-51); MDiff Complete? YES; Mean Corpuscular HGB CONC 33.7 g/dL (32.0-36.0); Mean Corpuscular Hemoglobin 31.2 pg (27.0-31.0); Mean Corpuscular Volume 92.5 fL (78.0-98.0); Mean Platelet Volume 7.8 fL (7.4-10.4); Monocytes 11 % (0-10); Neutrophil 45 % (42-75); Platelet Count 242 thou/uL (130-400); Platelet Morphology Comment Appears Adequate; RBC Distribution Width 11.9 % (11.5-14.5); Red Blood Cell (RBC) Count 3.99 mill/uL (4.20-5.40); White Blood Cell (WBC) Count 3.9 thou/uL (4.8-10.8)
[2020-07-13] MEDS: Ipratropium Bromide 2.5 ml Neb NEB SCH ×3 (06:58→19:55)
--- NOTE | 2020-07-13 07:59 | PDOC.HOSPP ---
- Subjective Encounter Date: 07/13/20 Subjective: Seen and examined at bedside in no acute distress. Refers she had several bowel movements yesterday. Has been passing gas. Does tell me that after having her broth she had some mild abdominal discomfort and nausea but no vomiting. No fever or chills. - Objective Vital Signs & Weight: Vital Signs (12 hours) Temp Pulse Resp BP Pulse Ox 07/13/20 06:58 85 16 96 07/13/20 03:46 98.1 F 92 18 111/69 96 07/12/20 20:00 97.5 F L 88 16 120/75 96 Weight Admit Weight 119 lb 9.6 oz Weight 119 lb 9.6 oz I&O: 07/12/20 07/13/20 07/14/20 06:59 06:59 06:59 Intake Total 1960 Output Total 820 Balance -820 1959 Result Diagrams: 07/13/20 05:05 07/13/20 13:55 Hospitalist ROS - Review of Systems Respiratory: denies: cough, dry, shortness of breath, hemoptysis, SOB with excertion, pleuritic pain, sputum, wheezing, other Cardiovascular: denies: chest pain, palpitations, orthopnea, paroxysmal noc. dyspnea, edema, light headedness, other Gastrointestinal: reports: nausea, abdominal pain, diarrhea. denies: vomiting Genitourinary: denies: dysuria, frequency, incontinence, hematuria, retention, other Musculoskeletal: denies: neck pain, shoulder pain, arm pain, back pain, hand pain, leg pain, foot pain, other Neurological: denies: weakness, numbness, incoordination, change in speech, confusion, seizures, other - Medication Medications: Active Medications Generic Name Dose Route Start Last Admin Trade Name Freq PRN Reason Stop Dose Admin Aspirin 81 mg 07/05/20 09:00 07/12/20 10:34 Aspirin Chewable 81 Mg Tab PO 81 mg DAILY SHANTELLE Administration Diltiazem HCl 120 mg 07/06/20 09:00 07/12/20 10:39 Diltiazem Cd 120 Mg Cap PO 120 mg DAILY SHANTELLE Administration Dronedarone 400 mg 07/05/20 08:00 07/12/20 18:40 Dronedarone Hcl 400 Mg Tab PO 400 mg BID- SHANTELLE Administration Escitalopram Oxalate 5 mg 07/05/20 09:00 07/12/20 10:39 Escitalopram Oxalate 10 Mg Tablet PO Not Given DAILY SHANTELLE Gabapentin 800 mg 07/05/20 21:00 07/12/20 20:27 Gabapentin 400 Mg Cap PO Not Given TID SHANTELLE Dextrose/Sodium Chloride 1,000 mls @ 100 mls/hr 07/09/20 21:00 07/12/20 20:30 D5 0.9% Ns IV 1,000 mls .Q10H SHANTELLE Administration Ipratropium [place] 2.5 ml 07/05/20 06:30 07/13/20 06:58 Ipratropium [place] 2.5 Ml Neb NEB 2.5 ml TID-RT SHANTELLE Administration Lidocaine 1 patch 07/07/20 09:00 07/12/20 18:40 Lidocaine 5% Patch TD 1 patch DAILY SHANTELLE Administration Lorazepam 1 mg 07/05/20 04:29 07/12/20 22:16 Lorazepam 1 Mg Tab PO 1 mg Q8HR PRN Administration Anxiety Losartan Potassium 25 mg 07/05/20 09:00 07/12/20 10:38 Losartan 25 Mg Tab PO 25 mg DAILY SHANTELLE Administration Miscellaneous Medication 1 each 07/07/20 21:00 07/12/20 20:28 Lidocaine Patch Removal 1 Each TOP 1 each 2100 SHANTELLE Administration Mometasone Furoate 1 puff 07/06/20 18:30 07/12/20 19:06 Mometasone Furoate 120 Puff 220 Mcg INH Not Given 1830 [facility] Montelukast Sodium 10 mg 07/06/20 09:00 07/12/20 10:39 Montelukast Sodium 10 Mg Tablet PO Not Given DAILY [facility] Ondansetron HCl 4 mg 07/07/20 22:04 07/10/20 08:52 Ondansetron Pf 4 Mg/2 Ml Vial IVP 4 mg Q6H PRN Administration Nausea/Vomiting Pantoprazole Sodium 40 mg 07/05/20 09:00 07/12/20 20:28 Pantoprazole 40 Mg Vial IVP 40 mg BID SHANTELLE Administration Phenol 5 ml 07/11/20 22:56 07/12/20 04:02 Chloraseptic [place] 180 Ml Bottle PO 1 spray PRN PRN Administration Sore Throat Polyethylene Glycol 17 gm 07/05/20 17:00 07/12/20 17:45 Polyethylene Glycol 3350 17 Gm Packet PO Not Given 1700 [facility] Saccharomyces Boulardii 250 mg 07/09/20 21:00 07/12/20 20:29 Saccharomyces Boulardii 250 Mg Cap PO 250 mg BID SHANTELLE Administration Simethicone 80 mg 07/05/20 04:37 07/09/20 02:12 Simethicone Chewable 80 Mg Tab PO 80 mg PCHS PRN Administration Gas Pain Vancomycin HCl 500 mg 07/09/20 21:00 07/13/20 03:45 Vancomycin Hcl 25 Mg/Ml Oral PER TUBE 500 mg 0300,0900,1500,2100 SHANTELLE Administration - Exam General Appearance: NAD, awake alert Eye: PERRL, anicteric sclera ENT: normocephalic atraumatic Neck: supple, symmetric, no JVD Heart: RRR, no murmur, no gallops, no rubs, normal peripheral pulses Respiratory: CTAB, no wheezes, no rales, no ronchi, normal chest expansion, no tachypnea, normal percussion Gastrointestinal: soft, non-distended, normal bowel sounds, tender to palpation (Slight tenderness/diffuse; improved) Neurological: cranial nerve grossly intact, normal sensation to touch, no weakness, no focal deficits, no new deficit Musculoskeletal: normal tone, normal strength, no muscle wasting Hosp A/P - Plan A/P: Admitted with abdominal pain & BRBPR with CT evidence of inflammatory changes to splenic flexure - sigmoid colon suggestive of ischemic colitis. # BRPPR: CT scan on 07-08-20 appears to show some evidence of obstruction. S/p emergent colonoscopy on 07-09-20 with findings of ischemic colitis as well as some pseudomembranes. Able to tolerate clears with NGT clamped. Continues to have BMs, passing gas with no issues. Abdomen remains non distended with improving tenderness. Antibiotics adjusted to PO Vancomycin C.diff to complete 10 day treatment. NGT has been removed. She did have some very mild abd discomfort and nausea with broth; will keep full liquid diet today 07-13-20. # Ileus: S/p emergent colonoscopy on 07-09-20 with findings of ischemic colit is as well as some pseudomembranes but no obstruction. NGT has now been removed and patient is slowly tolerating diet. No further distention observed. Abdomen is soft and decompressed. Per GI avoid narcotics, muscle relaxants, antispasmodics. # Electrolyte imbalance: Hypokalemia & hypomagnesemia. Replacing K, Mg, Phos & rechecking tonight 07-13-20. # COPD: No evidence of acute exacerbation. Continues to refuse Singulair; will DC. Monitor. # HTN: Stable. Monitor. # Hx of AF: Not on AC. Continue with Cardizem and Multaq. DISPOSITION: Great improvement over the last 48 hrs. NGT to be removed. Advancing diet. Sigmoid samples appear to be negative for C.diff. ABX to target possible C.diff infection. If continues to improve anticipate discharge in 2-3 days.
[2020-07-13] MEDS: Dextrose 5 % And 0.9 % NaCl 1,000 ML IV SCH (08:06)
[2020-07-13] MEDS: Aspirin Chewable 81 MG TAB PO SCH (08:10)
[2020-07-13] MEDS: Dronedarone HCl 400 MG TAB PO SCH ×2 (08:10→18:47)
[2020-07-13] MEDS: Montelukast Sodium 10 mg Tablet PO SCH (08:10)
[2020-07-13] MEDS: Gabapentin 400 MG CAP PO SCH ×2 (08:10→14:58)
[2020-07-13] MEDS: Escitalopram Oxalate 10 mg Tablet PO SCH (08:11)
[2020-07-13] MEDS: Saccharomyces boulardii 250 MG CAP PO SCH ×2 (08:16→20:19)
[2020-07-13] MEDS: Losartan 25 MG TAB PO SCH (08:16)
[2020-07-13] MEDS: Pantoprazole 40 MG VIAL IVP SCH ×2 (08:17→20:20)
[2020-07-13] MEDS: Lidocaine 5% Patch TD SCH (08:26)
[2020-07-13] MEDS: Lorazepam 1 MG TAB PO PRN (08:26)
[2020-07-13 14:37] LABS: Anion Gap 15 mmol/L (10-20); BUN (Urea Nitrogen) Less than 4 mg/dL (9.8-20.1); Calc. Creatinine Clearance 82 mL/min (70-130); Calcium 7.5 mg/dL (7.8-10.44); Carbon Dioxide 22 mmol/L (23-31); Chloride 109 mmol/L (98-107); Glucose 150 mg/dL (80-115); Magnesium 1.9 mg/dL (1.6-2.6); Sodium 143 mmol/L (136-145)
[2020-07-13 14:59] LABS: Phosphorus 1.7 mg/dL (2.3-4.7)
[2020-07-13] MEDS ORDERED: Magnesium Sulfate 3 GM in Sodium Chloride 0.9% 100 ML IVPB SCH (15:15)
[2020-07-13] MEDS ORDERED: Potassium Chloride 20 MEQ TAB PO SCH (15:15)
[2020-07-13] MEDS ORDERED: Potassium Phosphate 30 MMOL in Sodium Chloride 0.9% 250 ML 250 ML IVPB SCH (15:15)
[2020-07-13] MEDS: ALPRAZolam 0.5 MG TAB PO PRN ×2 (16:31→22:58)
[2020-07-13] MEDS: D5 1/2 NS w/10 mEq KCl 1,000 ML/1,000 ML BAG IV SCH (18:33)
[2020-07-13] MEDS: Mometasone Furoate 120 PUFF 220 MCG INH SCH (18:44)
[2020-07-13] MEDS: Polyethylene Glycol 3350 17 GM Packet PO SCH (18:44)
[2020-07-13] MEDS: Lidocaine Patch Removal 1 EACH TOP SCH (20:21)
[2020-07-13 22:49] LABS: Anion Gap 17 mmol/L (10-20); BUN (Urea Nitrogen) Less than 4 mg/dL (9.8-20.1); Calc. Creatinine Clearance 89 mL/min (70-130); Calcium 7.8 mg/dL (7.8-10.44); Carbon Dioxide 19 mmol/L (23-31); Chloride 112 mmol/L (98-107); Glucose 96 mg/dL (80-115); Magnesium 2.6 mg/dL (1.6-2.6); Potassium 5.6 mmol/L (3.5-5.1); Sodium 142 mmol/L (136-145)
[2020-07-14] MEDS: Vancomycin HCl 25 MG/ML Oral PER TUBE SCH ×4 (03:05→20:51)
[2020-07-14] MEDS: D5 1/2 NS w/10 mEq KCl 1,000 ML/1,000 ML BAG IV SCH (04:56)
[2020-07-14 05:46] LABS: #Eosinphils 0.1 thou/uL (0.0-0.7); #Lymphocytes 0.8 thou/uL (1.20-3.40); #Monocytes 0.4 thou/uL (0.11-0.59); #Neutrophils 1.6 thou/uL (1.40-6.50); %Basophils 0.8 % (0.0-1.0); %Eosinophils 4.5 % (0.0-10.0); %Monocytes 14.4 % (0.0-10.0); %Neutrophils 52.5 % (42.0-75.0); Hemoglobin 12.6 g/dL (12.0-16.0); Mean Corpuscular HGB CONC 33.9 g/dL (32.0-36.0); Mean Corpuscular Hemoglobin 31.1 pg (27.0-31.0); Mean Corpuscular Volume 91.8 fL (78.0-98.0); Mean Platelet Volume 7.5 fL (7.4-10.4); Platelet Count 250 thou/uL (130-400); Red Blood Cell (RBC) Count 4.05 mill/uL (4.20-5.40)
[2020-07-14 06:12] LABS: Anion Gap 11 mmol/L (10-20); BUN (Urea Nitrogen) Less than 4 mg/dL (9.8-20.1); Calc. Creatinine Clearance 93 mL/min (70-130); Calcium 7.7 mg/dL (7.8-10.44); Carbon Dioxide 25 mmol/L (23-31); Chloride 109 mmol/L (98-107); Glucose 106 mg/dL (80-115); Magnesium 2.3 mg/dL (1.6-2.6); Potassium 3.9 mmol/L (3.5-5.1); Sodium 141 mmol/L (136-145)
[2020-07-14] MEDS: Ipratropium Bromide 2.5 ml Neb NEB SCH ×3 (07:19→19:06)
[2020-07-14] MEDS: Dronedarone HCl 400 MG TAB PO SCH ×2 (08:16→17:14)
[2020-07-14] MEDS: Aspirin Chewable 81 MG TAB PO SCH (08:16)
[2020-07-14] MEDS: Saccharomyces boulardii 250 MG CAP PO SCH ×2 (08:16→20:37)
[2020-07-14] MEDS: Losartan 25 MG TAB PO SCH (08:16)
[2020-07-14] MEDS: Lidocaine 5% Patch TD SCH (08:17)
[2020-07-14] MEDS: Pantoprazole 40 MG VIAL IVP SCH ×2 (08:18→20:32)
--- NOTE | 2020-07-14 08:56 | PDOC.HOSPP ---
- Subjective Encounter Date: 07/14/20 Encounter Time: 11:15 Subjective: Patient with slow improvement. Eating a bit better without cramping or pain. Some loose stool but only 1x yesterday. - Objective Vital Signs & Weight: Vital Signs (12 hours) Temp Pulse Resp BP BP Pulse Ox 07/14/20 08:22 85 136/83 07/14/20 07:29 97.6 F 80 20 119/72 98 07/14/20 07:19 61 16 96 07/14/20 05:13 97.8 F 18 127/79 96 07/14/20 03:05 97.2 F L 90 18 135/82 96 07/13/20 20:56 97.8 F 91 18 118/69 99 Weight Admit Weight 119 lb 9.6 oz Weight 119 lb 9.6 oz I&O: 07/13/20 07/14/20 07/15/20 06:59 06:59 06:59 Intake Total 1959 3640 Output Total 700 Balance 1959 2940 Result Diagrams: 07/14/20 05:22 07/14/20 05:22 Hospitalist ROS - Review of Systems Constitutional: denies: fever, chills Respiratory: denies: cough, shortness of breath Cardiovascular: denies: chest pain, palpitations Gastrointestinal: reports: diarrhea. denies: nausea, vomiting, abdominal pain - Medication Medications: Active Medications Generic Name Dose Route Start Last Admin Trade Name Freq PRN Reason Stop Dose Admin Alprazolam 0.5 mg 07/13/20 15:32 07/13/20 22:58 Alprazolam 0.5 Mg Tab PO 07/15/20 15:33 0.5 mg TIDPRN PRN Administration Anxiety Aspirin 81 mg 07/05/20 09:00 07/14/20 08:16 Aspirin Chewable 81 Mg Tab PO 81 mg DAILY SHANTELLE Administration Diltiazem HCl 120 mg 07/06/20 09:00 07/14/20 08:22 Diltiazem Cd 120 Mg Cap PO 120 mg DAILY SHANTELLE Administration Dronedarone 400 mg 07/05/20 08:00 07/14/20 08:16 Dronedarone Hcl 400 Mg Tab PO 400 mg BID-WM SHANTELLE Administration Ipratropium [place] 2.5 ml 07/05/20 06:30 07/14/20 07:19 Ipratropium [place] 2.5 Ml Neb NEB 2.5 ml TID-RT SHANTELLE Administration Lidocaine 1 patch 07/07/20 09:00 07/14/20 08:17 Lidocaine 5% Patch TD 1 patch DAILY SHANTELLE Administration Losartan Potassium 25 mg 07/05/20 09:00 07/14/20 08:16 Losartan 25 Mg Tab PO 25 mg DAILY SHANTELLE Administration Miscellaneous Medication 1 each 07/07/20 21:00 07/13/20 20:21 Lidocaine Patch Removal 1 Each TOP 1 each 2100 SHANTELLE Administration Mometasone Furoate 1 puff 07/06/20 18:30 07/13/20 18:44 Mometasone Furoate 120 Puff 220 Mcg INH Not Given 1830 SHANTELLE Ondansetron HCl 4 mg 07/07/20 22:04 07/10/20 08:52 Ondansetron Pf 4 Mg/2 Ml Vial IVP 4 mg Q6H PRN Administration Nausea/Vomiting Pantoprazole Sodium 40 mg 07/05/20 09:00 07/14/20 08:18 Pantoprazole 40 Mg Vial IVP 40 mg BID SHANTELLE Administration Phenol 5 ml 07/11/20 22:56 07/12/20 04:02 Chloraseptic [place] 180 Ml Bottle PO 1 spray PRN PRN Administration Sore Throat Polyethylene Glycol 17 gm 07/05/20 17:00 07/13/20 18:44 Polyethylene Glycol 3350 17 Gm Packet PO Not Given 1700 SHANTELLE Saccharomyces Boulardii 250 mg 07/09/20 21:00 07/14/20 08:16 Saccharomyces Boulardii 250 Mg Cap PO 250 mg BID SHANTELLE Administration Simethicone 80 mg 07/05/20 04:37 07/09/20 02:12 Simethicone Chewable 80 Mg Tab PO 80 mg PCHS PRN Administration Gas Pain Vancomycin HCl 500 mg 07/09/20 21:00 07/14/20 08:19 Vancomycin Hcl 25 Mg/Ml Oral PER TUBE 500 mg 0300,0900,1500,2100 SHANTELLE Administration - Exam General Appearance: NAD, awake alert ENT: moist mucosa Heart: RRR, no murmur, no gallops, no rubs Respiratory: CTAB, no wheezes, no rales, no ronchi Gastrointestinal: soft, non-distended, normal bowel sounds, no guarding, no rigidity Gastrointestinal - other findings: RUQ with moderate TTP Psychiatric: normal affect, normal behavior, A&O x 3 Hosp A/P - Plan A/P: Admitted with abdominal pain & BRBPR with CT evidence of inflammatory changes to splenic flexure - sigmoid colon suggestive of ischemic colitis. # Ischemic colitis: CT scan on 07-08-20 appears to show some evidence of obstruction. S/p emergent colonoscopy on 07-09-20 with findings of ischemic co litis as well as some pseudomembranes but C. diff negative. Able to tolerate clears with NGT clamped so removed. Continues to have BMs, passing gas with no issues. Abdomen remains non distended with improving tenderness. Antibiotics adjusted to PO Vancomycin due to clinical improvement in spite of neg toxin and antigen to complete 10 day treatment. NGT has been removed. She did have some very mild abd discomfort and nausea with broth; will keep full liquid diet today 07-13-20. # Ileus: S/p emergent colonoscopy on 07-09-20 with findings of ischemic colitis as well as some pseudomembranes but no obstruction. NGT has now been removed and patient is slowly tolerating diet. No further distention observed. Abdomen is soft and decompressed. Per GI avoid narcotics, muscle relaxants, antispasmodics. # Electrolyte imbalance: Hypokalemia & hypomagnesemia. Replacing K, Mg, Phos, all normalized last night. # COPD: No evidence of acute exacerbation. Monitor. # HTN: Stable. Monitor. # Hx of AF: Not on AC. Continue with Cardizem and Multaq. DISPOSITION: Great improvement over the last 48 hrs. Advancing diet. Sigmoid samples appear to be negative for C.diff. ABX to target possible C.diff infection. If continues to improve anticipate discharge in 1-2 days.
--- NOTE | 2020-07-14 13:28 | PDOC.FMACP ---
Advance Care Planning - Problem (1) Palliative care encounter Status: Acute Code(s): Z51.5 - ENCOUNTER FOR PALLIATIVE CARE (2) Abdominal pain Status: Acute Code(s): R10.9 - UNSPECIFIED ABDOMINAL PAIN (3) Anxiety Status: Chronic Code(s): F41.9 - ANXIETY DISORDER, UNSPECIFIED (4) COPD (chronic obstructive pulmonary disease) Status: Chronic (5) Constipation Status: Chronic Code(s): K59.00 - CONSTIPATION, UNSPECIFIED - Note Participants: patient, palliative care Summary: Palliative Care addressed Advanced Care Planning. The diagnosis, prognosis and goals of care were discussed. Appropriate forms and documentation to accomplish the goals of care were discussed. All questions were answered. Elected to be a DNAR Completed MPOA and Directive to physician. Original and copy given to patient as well as copy on chart for medical records. Discussed hope of continued progress with diet, currently on clear liquids. Discussed avoiding narcotics and muscle relaxants and high fiber diet with adequate water intake. Palliative Care will sign off as consult was for Advanced Directives, and those are completed. Please reconsult our team if we can assist in revisiting goal of care, symptom management, complex decision making, coping. Thank you for this very appropriate consult and allowing our team to participate in the care of Ms Salazar. Time Spent (mins): 40
[2020-07-14] MEDS: ALPRAZolam 0.5 MG TAB PO PRN ×2 (15:45→23:29)
[2020-07-14] MEDS: Polyethylene Glycol 3350 17 GM Packet PO SCH (17:15)
[2020-07-14] MEDS: Lidocaine Patch Removal 1 EACH TOP SCH (20:52)
[2020-07-14] MEDS: Mometasone Furoate 120 PUFF 220 MCG INH SCH (20:52)
[2020-07-15] MEDS: Vancomycin HCl 25 MG/ML Oral PER TUBE SCH ×4 (03:05→22:02)
[2020-07-15] MEDS: Ipratropium Bromide 2.5 ml Neb NEB SCH ×3 (07:46→19:07)
--- NOTE | 2020-07-15 07:59 | PDOC.HOSPP ---
- Subjective Encounter Date: 07/15/20 Encounter Time: 10:30 Subjective: Patient tolerated solid food ok this morning. Diarrhea lessening. Still some JUAN MANUEL TTP and some cramping after eating, but made sure not to eat too much. Still feeling uncertain about her stomach but thinks she can probably go home tomorrow. - Objective Vital Signs & Weight: Vital Signs (12 hours) Temp Pulse Resp BP BP Pulse Ox 07/15/20 07:46 97 16 93 L 07/15/20 07:19 97.9 F 80 12 98/61 95 07/14/20 21:10 97.4 F L 101 H 16 114/73 96 07/14/20 20:52 85 18 98 07/14/20 20:37 96 Weight Admit Weight 119 lb 9.6 oz Weight 119 lb 9.6 oz I&O: 07/14/20 07/15/20 07/16/20 06:59 06:59 06:59 Intake Total 3640 1200 Output Total 700 Balance 2940 1200 Result Diagrams: 07/14/20 05:22 07/14/20 05:22 Hospitalist ROS - Review of Systems Constitutional: denies: fever, chills Respiratory: denies: cough, shortness of breath Cardiovascular: denies: chest pain, palpitations Gastrointestinal: reports: abdominal pain, diarrhea (lessening). denies: nausea, vomiting, constipation - Medication Medications: Active Medications Generic Name Dose Route Start Last Admin Trade Name Freq PRN Reason Stop Dose Admin Alprazolam 0.5 mg 07/13/20 15:32 07/14/20 23:29 Alprazolam 0.5 Mg Tab PO 07/15/20 15:33 0.5 mg TIDPRN PRN Administration Anxiety Aspirin 81 mg 07/05/20 09:00 07/14/20 08:16 Aspirin Chewable 81 Mg Tab PO 81 mg DAILY SHANTELLE Administration Diltiazem HCl 120 mg 07/06/20 09:00 07/14/20 08:22 Diltiazem Cd 120 Mg Cap PO 120 mg DAILY SHANTELLE Administration Dronedarone 400 mg 07/05/20 08:00 07/14/20 17:14 Dronedarone Hcl 400 Mg Tab PO 400 mg BID- SHANTELLE Administration Ipratropium [place] 2.5 ml 07/05/20 06:30 07/15/20 07:46 Ipratropium [place] 2.5 Ml Neb NEB 2.5 ml TID-RT SHANTELLE Administration Lidocaine 1 patch 07/07/20 09:00 07/14/20 08:17 Lidocaine 5% Patch TD 1 patch DAILY SHANTELLE Administration Miscellaneous Medication 1 each 07/07/20 21:00 07/14/20 20:52 Lidocaine Patch Removal 1 Each TOP 1 each 2100 SHANTELLE Administration Mometasone Furoate 1 puff 07/06/20 18:30 07/14/20 20:52 Mometasone Furoate 120 Puff 220 Mcg INH Not Given 1830 SHANTELLE Ondansetron HCl 4 mg 07/07/20 22:04 07/10/20 08:52 Ondansetron Pf 4 Mg/2 Ml Vial IVP 4 mg Q6H PRN Administration Nausea/Vomiting Pantoprazole Sodium 40 mg 07/05/20 09:00 07/14/20 20:32 Pantoprazole 40 Mg Vial IVP 40 mg BID SHANTELLE Administration Phenol 5 ml 07/11/20 22:56 07/12/20 04:02 Chloraseptic [place] 180 Ml Bottle PO 1 spray PRN PRN Administration Sore Throat Polyethylene Glycol 17 gm 07/05/20 17:00 07/14/20 17:15 Polyethylene Glycol 3350 17 Gm Packet PO Not Given 1700 SHANTELLE Saccharomyces Boulardii 250 mg 07/09/20 21:00 07/14/20 20:37 Saccharomyces Boulardii 250 Mg Cap PO 250 mg BID SHANTELLE Administration Simethicone 80 mg 07/05/20 04:37 07/09/20 02:12 Simethicone Chewable 80 Mg Tab PO 80 mg PCHS PRN Administration Gas Pain Vancomycin HCl 500 mg 07/09/20 21:00 07/15/20 03:05 Vancomycin Hcl 25 Mg/Ml Oral PER TUBE 500 mg 0300,0900,1500,2100 SHANTELLE Administration - Exam General Appearance: NAD, awake alert ENT: moist mucosa Heart: RRR, no murmur, no gallops, no rubs Respiratory: CTAB, no wheezes, no rales, no ronchi Gastrointestinal: soft, non-distended, normal bowel sounds Gastrointestinal - other findings: TTP JUAN MANUEL moderate Extremities: no edema Psychiatric: normal affect, normal behavior, A&O x 3 Hosp A/P - Plan A/P: Admitted with abdominal pain & BRBPR with CT evidence of inflammatory changes to splenic flexure - sigmoid colon suggestive of ischemic colitis. # Ischemic colitis: CT scan on 07-08-20 appears to show some evidence of obstruction. S/p emergent colonoscopy on 07-09-20 with findings of ischemic colitis as well as some pseudomembranes but C. diff negative. Able to tolerate clears with NGT clamped so removed. Continues to have BMs, passing gas with no issues. Abdomen remains non distended with improving tenderness. Antibiotics adjusted to PO Vancomycin due to clinical improvement in spite of neg toxin and antigen to complete 10 day treatment. NGT has been removed. She did have some very mild abd discomfort this morning with small amount of solid food but overall continuing to improve. # Ileus: S/p emergent colonoscopy on 07-09-20 with findings of ischemic colitis as well as some pseudomembranes but no obstruction. NGT has now been removed and patient is slowly tolerating diet. No further distention observed. Abdomen is soft and decompressed. Per GI avoid narcotics, muscle relaxants, antispasmodics. # Electrolyte imbalance: Hypokalemia & hypomagnesemia. Replacing K, Mg, Phos, all normalized last night. # COPD: No evidence of acute exacerbation. Monitor. # HTN: Stable. A bit on the low side and want to maintain pressures to perfuse colon. Will d/c low dose losartan. # Hx of AF: Not on AC. Continue with Cardizem and Multaq. DISPOSITION: Continues to improve greatly. Advancing diet. Sigmoid samples appear to be negative for C.diff. ABX to target possible C.diff infection. If continues to improve anticipate discharge tomorrow.
[2020-07-15] MEDS: Dronedarone HCl 400 MG TAB PO SCH ×2 (08:10→17:52)
[2020-07-15] MEDS: Aspirin Chewable 81 MG TAB PO SCH (08:10)
[2020-07-15] MEDS: Saccharomyces boulardii 250 MG CAP PO SCH ×2 (08:10→20:26)
[2020-07-15] MEDS: Pantoprazole 40 MG VIAL IVP SCH ×2 (08:14→20:26)
[2020-07-15] MEDS: Lidocaine 5% Patch TD SCH (08:14)
[2020-07-15] MEDS ORDERED: Acetaminophen 650 MG Suppository PR PRN (08:25)
[2020-07-15] MEDS: Acetaminophen 325 MG TAB PO PRN (08:50)
[2020-07-15] MEDS: ALPRAZolam 0.5 MG TAB PO PRN (14:24)
[2020-07-15] MEDS: Polyethylene Glycol 3350 17 GM Packet PO SCH ×3 (17:52→22:01)
[2020-07-15] MEDS: Mometasone Furoate 120 PUFF 220 MCG INH SCH (19:00)
[2020-07-15] MEDS: Lidocaine Patch Removal 1 EACH TOP SCH (20:27)
[2020-07-15] MEDS ORDERED: ALPRAZolam 0.5 MG TAB PO PRN (22:08)
[2020-07-16] MEDS: Acetaminophen 325 MG TAB PO PRN (00:54)
[2020-07-16] MEDS: Vancomycin HCl 25 MG/ML Oral PER TUBE SCH ×4 (03:55→20:29)
[2020-07-16] MEDS: Ipratropium Bromide 2.5 ml Neb NEB SCH ×3 (07:15→18:49)
[2020-07-16] MEDS: Saccharomyces boulardii 250 MG CAP PO SCH ×2 (08:14→20:29)
[2020-07-16] MEDS: Aspirin Chewable 81 MG TAB PO SCH (08:14)
[2020-07-16] MEDS: Dronedarone HCl 400 MG TAB PO SCH ×2 (08:14→16:54)
[2020-07-16] MEDS: Lidocaine 5% Patch TD SCH (08:17)
[2020-07-16] MEDS: Pantoprazole 40 MG VIAL IVP SCH (08:17)
--- NOTE | 2020-07-16 10:21 | PDOC.HOSPP ---
- Subjective Encounter Date: 07/16/20 - Objective Vital Signs & Weight: Vital Signs (12 hours) Temp Pulse Resp BP BP Pulse Ox 07/16/20 09:55 87 107/69 07/16/20 07:20 97.4 F L 75 20 105/66 100 07/16/20 07:15 80 14 95 Weight Admit Weight 119 lb 9.6 oz Weight 119 lb 9.6 oz I&O: 07/15/20 07/16/20 07/17/20 06:59 06:59 06:59 Intake Total 1200 1900 Balance 1200 1900 Result Diagrams: 07/14/20 05:22 07/14/20 05:22 Hospitalist ROS - Medication Medications: Active Medications Generic Name Dose Route Start Last Admin Trade Name Freq PRN Reason Stop Dose Admin Acetaminophen 650 mg 07/15/20 08:25 07/16/20 00:54 Acetaminophen 325 Mg Tab PO 650 mg Q6H PRN Administration Pain Alprazolam 0.5 mg 07/15/20 22:08 07/15/20 22:35 Alprazolam 0.5 Mg Tab PO 0.5 mg HSPRN PRN Administration Anxiety/Insomnia Aspirin 81 mg 07/05/20 09:00 07/16/20 08:14 Aspirin Chewable 81 Mg Tab PO 81 mg DAILY SHANTELLE Administration Diltiazem HCl 120 mg 07/06/20 09:00 07/16/20 09:55 Diltiazem Cd 120 Mg Cap PO Not Given DAILY SHANTELLE Dronedarone 400 mg 07/05/20 08:00 07/16/20 08:14 Dronedarone Hcl 400 Mg Tab PO 400 mg BID-WM SHANTELLE Administration Ipratropium [place] 2.5 ml 07/05/20 06:30 07/16/20 07:15 Ipratropium [place] 2.5 Ml Neb NEB 2.5 ml TID-RT SHANTELLE Administration Lidocaine 1 patch 07/07/20 09:00 07/16/20 08:17 Lidocaine 5% Patch TD 1 patch DAILY SHANTELLE Administration Miscellaneous Medication 1 each 07/07/20 21:00 07/15/20 20:27 Lidocaine Patch Removal 1 Each TOP Not Given 2100 SHANTELLE Mometasone Furoate 1 puff 07/06/20 18:30 07/15/20 19:00 Mometasone Furoate 120 Puff 220 Mcg INH Not Given 1830 SHANTELLE Ondansetron HCl 4 mg 07/07/20 22:04 07/10/20 08:52 Ondansetron Pf 4 Mg/2 Ml Vial IVP 4 mg Q6H PRN Administration Nausea/Vomiting Phenol 5 ml 07/11/20 22:56 07/12/20 04:02 Chloraseptic [place] 180 Ml Bottle PO 1 spray PRN PRN Administration Sore Throat Polyethylene Glycol 17 gm 07/05/20 17:00 07/15/20 22:01 Polyethylene Glycol 3350 17 Gm Packet PO 17 gm 1700 SHANTELLE Administration Saccharomyces Boulardii 250 mg 07/09/20 21:00 07/16/20 08:14 Saccharomyces Boulardii 250 Mg Cap PO 250 mg BID SHANTELLE Administration Simethicone 80 mg 07/05/20 04:37 07/09/20 02:12 Simethicone Chewable 80 Mg Tab PO 80 mg PCHS PRN Administration Gas Pain Vancomycin HCl 500 mg 07/09/20 21:00 07/16/20 08:17 Vancomycin Hcl 25 Mg/Ml Oral PER TUBE 500 mg 0300,0900,1500,2100 SHANTELLE Administration
[2020-07-16] MEDS ORDERED: Magnesium Citrate 300 ML BOT PO SCH (10:30)
--- NOTE | 2020-07-16 10:32 | PDOC.DS.DS ---
Provider - Provider Date of Admission: 07/05/20 02:04 Date of Discharge: 07/17/20 Admitting Provider: John Lacy DO Consultations: Gastroentrology Course - Hospital Course Hospital Course: Patient was admitted on July 05, 2020 for pain and bright red blood per rectum. In the emergency room CT abdomen and pelvis showed nonspecific colitis involving left colon. She was evaluated by gastroenterology on July 05. Patient underwent colonoscopy on July 09 which showed ischemic colitis and pseudomembrane in transverse colon. Initially patient had NG tube, stool for C. difficile came back negative but despite that we continued with oral vancomycin and patient responded very well. Patient was tolerating very well, gastroenterology signed off on the case, p atmelyssa had constipation that was taken care of while in hospital. All new medication prescription given to her. Final diagnosis ischemic colitis, pseudomembranous colitis, presumed from C. difficile. Resuscitation Status: 07/09/20 12:15 Resuscitation Status Routine Resuscitation Status: DNAR: NO Resuscitation Discussed with: Confirmed with patient - Labs Lab Results: 07/14/20 05:22 07/14/20 05:22 Microbiology - Entire Visit 07/09/20 16:49 Stool - Unknown C. difficile GDH Antigen & Toxins - Final - Physical Exam Vitals: Vital Signs (12 hours) Temp Pulse Resp BP BP Pulse Ox 07/16/20 09:55 87 107/69 07/16/20 07:20 97.4 F L 75 20 105/66 100 07/16/20 07:15 80 14 95 Weight Admit Weight 119 lb 9.6 oz Weight 119 lb 9.6 oz Physical Exam: The patient was seen and examined on the day of discharge. General patient is currently alert awake no acute distress Head normocephalic atraumatic Neck supple no JVD no meningeal signs of irritation Lungs clear to auscultation without any rhonchi rales Cardiac S1-S2 regular no murmur no gallop no rub Abdomen soft, bowel sound present, nontender nondistended no organomegaly no mass Extremities no edema Neurologic nonfocal examination Problem - Discharge Plan Assessment: A/P: Admitted with abdominal pain & BRBPR with CT evidence of inflammatory changes to splenic flexure - sigmoid colon suggestive of ischemic colitis. # Ischemic colitis: CT scan on 07-08-20 appears to show some evidence of obstruction. S/p emergent colonoscopy on 07-09-20 with findings of ischemic colitis as well as some pseudomembranes but C. diff negative. Able to tolerate clears with NGT clamped so removed. Continues to have BMs, passing gas with no issues. Abdomen remains non distended with improving tenderness. Antibiotics adjusted to PO Vancomycin due to clinical improvement in spite of neg toxin and antigen to complete 10 day treatment. NGT has been removed. She did have some very mild abd discomfort this morning with small amount of solid food but overall continuing to improve. # Ileus: S/p emergent colonoscopy on 07-09-20 with findings of ischemic colitis as well as some pseudomembranes but no obstruction. NGT has now been removed and patient is slowly tolerating diet. No further distention observed. Abdomen is soft and decompressed. Per GI avoid narcotics, muscle relaxants, antispasmodics. # Electrolyte imbalance: Hypokalemia & hypomagnesemia. Replacing K, Mg, Phos, all normalized last night. # COPD: No evidence of acute exacerbation. Monitor. # HTN: Stable. A bit on the low side and want to maintain pressures to perfuse colon. Will d/c low dose losartan. # Hx of AF: Not on AC. Continue with Cardizem and Multaq. Patient was discharged yesterday but patient was not comfortable to go home and she had no bowel movement so we will have to try multiple stool softener, this morning routine laboratory tests are unremarkable, her x-ray abdomen is not showing any obstruction, and I had a lengthy discussion with her about how to take care of constipation and OTC treatment for that. 64-year-old female with past medical history of COPD on home oxygen, chronic bronchitis, chronic diastolic heart failure, history of DVT, chronic hepatitis C, atrial flutter, hypertension presented with ischemic colitis. Patient was having abdominal pain, GI imaging showed ischemic colitis, colonoscopy confirmed that finding as well, patient was found with pseudomembrane, initially patient was suspected for ileus versus obstruction, patient was required NG tube with suction, subsequently NG tube was discontinued, C. difficile came back negative, patient responded to oral vancomycin, which is continued for total 10 days. We have discontinued those type of medication which will reduce her motor motility of colon. Plan - Discharge Medications Prescriptions: Mometasone Furoate [Asmanex Twisthaler] 1 puff INH DAILY #1 inhaler Saccharomyces boulardii [Florastor] 250 mg PO BID #20 cap Polyethylene Glycol 3350 [Miralax] 17 gm PO DAILY #30 pk Vancomycin HCl [Vancocin HCl] 500 mg PO QID #30 capsule Home Medications: Medication Instructions Recorded Confirmed Type Diltiazem HCl [Cartia XT] 1 cap PO DAILY 04/18/17 07/05/20 History Dronedarone HCl [Multaq] 400 mg PO BID-WM 04/18/17 07/05/20 History Aspirin Chewable [Aspirin Chewable 81 mg PO DAILY tab 04/23/17 07/05/20 Rx Tablet] Losartan [Cozaar] 25 mg PO DAILY tab 04/23/17 07/05/20 Rx Denosumab [Prolia] 60 mg SQ ASDIR 07/05/20 07/05/20 History Escitalopram Oxalate [Lexapro] 5 mg PO DAILY 07/05/20 07/05/20 History Famotidine [Pepcid] 20 mg PO BID 07/05/20 07/05/20 History Gabapentin 800 mg PO TID 07/05/20 07/05/20 History Ipratropium [place] 0.5 mg NEB TID 07/05/20 07/05/20 History Lorazepam [Ativan] 1 mg PO Q8HR PRN 07/05/20 07/05/20 History Montelukast Sodium 10 mg PO DAILY 07/05/20 07/05/20 History Mometasone Furoate [Asmanex 1 puff INH DAILY #1 inhaler 07/16/20 Rx Twisthaler] Polyethylene Glycol 3350 [Miralax] 17 gm PO DAILY #30 pk 07/16/20 Rx Saccharomyces boulardii [Florastor] 250 mg PO BID #20 cap 07/16/20 Rx Vancomycin HCl [Vancocin HCl] 500 mg PO QID #30 capsule 07/16/20 Rx Allergies: baclofen Allergy (Verified 07/05/20 02:26) ketorolac [From Toradol] Allergy (Verified 10/19/19 19:38) PER ER NOTES levofloxacin [From Levaquin] Allergy (Verified 10/19/19 19:38) PER ER NOTES Penicillins Allergy (Verified 10/19/19 19:38) PER ER NOTES tizanidine Allergy (Verified 07/05/20 02:26) tramadol Allergy (Verified 10/19/19 19:38) PER ER NOTES - Discharge Instructions Discharge Instructions:: YOUR PRESCRIPTIONS WERE SENT TO: [facility] [address] [place] [id number] Activity:: Activity as Tolerated Nourishment:: Heart Healthy Diet Therapies:: Not Applicable Equipment/Supplies:: Not Applicable IV Therapy:: Not Applicable - Follow up Plan Disposition: HOME Quality - Care Measures CORE MEASURES:: N/A
[2020-07-16] MEDS: Polyethylene Glycol 3350 17 GM Packet PO SCH (14:00)
[2020-07-16] MEDS ORDERED: ALPRAZolam 0.5 MG TAB PO PRN (16:40)
[2020-07-16] MEDS: Mometasone Furoate 120 PUFF 220 MCG INH SCH ×2 (17:48→17:50)
[2020-07-16] MEDS: Lorazepam 1 MG TAB PO PRN (17:48)
--- NOTE | 2020-07-16 20:09 | PDOC.HOSPP ---
- Subjective Encounter Date: 07/16/20 Encounter Time: 10:00 Subjective: pt has no BM, feels bloated - Objective Vital Signs & Weight: Vital Signs (12 hours) Temp Pulse Resp BP BP Pulse Ox 07/16/20 13:53 84 14 98 07/16/20 12:00 97.4 F L 84 20 123/79 98 07/16/20 09:55 87 107/69 Weight Admit Weight 119 lb 9.6 oz Weight 119 lb 9.6 oz I&O: 07/15/20 07/16/20 07/17/20 06:59 06:59 06:59 Intake Total 1200 1900 600 Balance 1200 1900 600 Result Diagrams: 07/14/20 05:22 07/14/20 05:22 Hospitalist ROS - Review of Systems ENT: denies: ear pain, ear discharge, nose pain, nose discharge, nose congestion, mouth pain, mouth swelling, throat pain, throat swelling, other Respiratory: denies: cough, dry, shortness of breath, hemoptysis, SOB with excertion, pleuritic pain, sputum, wheezing, other Cardiovascular: denies: chest pain, palpitations, orthopnea, paroxysmal noc. dyspnea, edema, light headedness, other Gastrointestinal: reports: constipation. denies: nausea, vomiting, abdominal pain, diarrhea, melena, hematochezia, other Genitourinary: denies: dysuria, frequency, incontinence, hematuria, retention, other Musculoskeletal: denies: neck pain, shoulder pain, arm pain, back pain, hand pain, leg pain, foot pain, other Skin: denies: rash, lesions, lola, bruising, other - Medication Medications: Active Medications Generic Name Dose Route Start Last Admin Trade Name Freq PRN Reason Stop Dose Admin Acetaminophen 650 mg 07/15/20 08:25 07/16/20 00:54 Acetaminophen 325 Mg Tab PO 650 mg Q6H PRN Administration Pain Aspirin 81 mg 07/05/20 09:00 07/16/20 08:14 Aspirin Chewable 81 Mg Tab PO 81 mg DAILY SHANTELLE Administration Diltiazem HCl 120 mg 07/06/20 09:00 07/16/20 09:55 Diltiazem Cd 120 Mg Cap PO Not Given DAILY SHANTELLE Dronedarone 400 mg 07/05/20 08:00 07/16/20 16:54 Dronedarone Hcl 400 Mg Tab PO 400 mg BID-WM SHANTELLE Administration Ipratropium [place] 2.5 ml 07/05/20 06:30 07/16/20 18:49 Ipratropium [place] 2.5 Ml Neb NEB Not Given TID-RT SHANTELLE Lidocaine 1 patch 07/07/20 09:00 07/16/20 08:17 Lidocaine 5% Patch TD 1 patch DAILY SHANTELLE Administration Lorazepam 1 mg 07/16/20 17:22 07/16/20 17:48 Lorazepam 1 Mg Tab PO 1 mg Q8H PRN Administration Anxiety Miscellaneous Medication 1 each 07/07/20 21:00 07/15/20 20:27 Lidocaine Patch Removal 1 Each TOP Not Given 2100 [facility] Mometasone Furoate 1 puff 07/06/20 18:30 07/16/20 17:50 Mometasone Furoate 120 Puff 220 Mcg INH Not Given 1830 [facility] Ondansetron HCl 4 mg 07/07/20 22:04 07/10/20 08:52 Ondansetron Pf 4 Mg/2 Ml Vial IVP 4 mg Q6H PRN Administration Nausea/Vomiting Phenol 5 ml 07/11/20 22:56 07/12/20 04:02 Chloraseptic [place] 180 Ml Bottle PO 1 spray PRN PRN Administration Sore Throat Polyethylene Glycol 17 gm 07/05/20 17:00 07/16/20 14:00 Polyethylene Glycol 3350 17 Gm Packet PO 17 gm 1700 SHANTELLE Administration Saccharomyces Boulardii 250 mg 07/09/20 21:00 07/16/20 08:14 Saccharomyces Boulardii 250 Mg Cap PO 250 mg BID SHANTELLE Administration Simethicone 80 mg 07/05/20 04:37 07/09/20 02:12 Simethicone Chewable 80 Mg Tab PO 80 mg PCHS PRN Administration Gas Pain Vancomycin HCl 500 mg 07/09/20 21:00 07/16/20 14:05 Vancomycin Hcl 25 Mg/Ml Oral PER TUBE 500 mg 0300,0900,1500,2100 SHANTELLE Administration - Exam General Appearance: NAD, awake alert Eye: PERRL, anicteric sclera ENT: normocephalic atraumatic, no oropharyngeal lesions Neck: supple, symmetric, no JVD, no thyromegaly Heart: RRR, no murmur, no gallops, no rubs Respiratory: CTAB, no wheezes, no rales, no ronchi Gastrointestinal: soft, normal bowel sounds Extremities: no cyanosis, no clubbing, no edema Skin: normal turgor, no lesions Neurological: no focal deficits Musculoskeletal: normal tone, normal strength, no muscle wasting Psychiatric: normal affect, normal behavior, A&O x 3 Hosp A/P (1) Bright red blood per rectum Code(s): K62.5 - HEMORRHAGE OF ANUS AND RECTUM Status: Acute Plan: due to ischemic colitis (2) CHF (congestive heart failure) Code(s): I50.9 - HEART FAILURE, UNSPECIFIED Status: Chronic Qualifiers: Heart failure type: diastolic (3) Hypertension Code(s): I10 - ESSENTIAL (PRIMARY) HYPERTENSION Status: Chronic (4) Abdominal pain Code(s): R10.9 - UNSPECIFIED ABDOMINAL PAIN Status: Acute (5) Hx of atrial flutter Code(s): Z86.79 - PERSONAL HISTORY OF OTHER DISEASES OF THE CIRCULATORY SYSTEM Status: Acute (6) Anxiety Code(s): F41.9 - ANXIETY DISORDER, UNSPECIFIED Status: Chronic (7) COPD (chronic obstructive pulmonary disease) Status: Chronic (8) Constipation Code(s): K59.00 - CONSTIPATION, UNSPECIFIED Status: Chronic (9) Hypokalemia Code(s): E87.6 - HYPOKALEMIA Status: Resolved (10) Hyponatremia Code(s): E87.1 - HYPO-OSMOLALITY AND HYPONATREMIA Status: Resolved - Plan old records reviewed/req planned for DC but had No BM despite Mag citrate and other stool softener pt was not comfortable to go home, so DC cancelled
[2020-07-16] MEDS: Lidocaine Patch Removal 1 EACH TOP SCH (20:46)
[2020-07-17] MEDS: Lorazepam 1 MG TAB PO PRN ×2 (01:16→09:30)
[2020-07-17] MEDS: Vancomycin HCl 25 MG/ML Oral PER TUBE SCH ×2 (02:11→08:19)
[2020-07-17] MEDS: Ipratropium Bromide 2.5 ml Neb NEB SCH (07:11)
[2020-07-17 07:56] VITALS: TEMP 97.7
[2020-07-17] MEDS: Saccharomyces boulardii 250 MG CAP PO SCH (08:14)
[2020-07-17] MEDS: Aspirin Chewable 81 MG TAB PO SCH (08:14)
[2020-07-17] MEDS: Dronedarone HCl 400 MG TAB PO SCH (08:14)
[2020-07-17] MEDS: Lidocaine 5% Patch TD SCH (08:19)
[2020-07-17 08:34] LABS: #Eosinphils 0.2 thou/uL (0.0-0.7); #Lymphocytes 1.3 thou/uL (1.20-3.40); #Monocytes 0.5 thou/uL (0.11-0.59); #Neutrophils 3.7 thou/uL (1.40-6.50); %Basophils 0.4 % (0.0-1.0); %Eosinophils 3.8 % (0.0-10.0); %Lymphocytes 21.9 % (21.0-51.0); %Monocytes 9.4 % (0.0-10.0); %Neutrophils 64.5 % (42.0-75.0); Hemoglobin 13.1 g/dL (12.0-16.0); Mean Corpuscular HGB CONC 33.8 g/dL (32.0-36.0); Mean Corpuscular Hemoglobin 31.4 pg (27.0-31.0); Mean Platelet Volume 8.2 fL (7.4-10.4); Platelet Count 269 thou/uL (130-400); RBC Distribution Width 11.8 % (11.5-14.5); Red Blood Cell (RBC) Count 4.18 mill/uL (4.20-5.40); White Blood Cell (WBC) Count 5.8 thou/uL (4.8-10.8)
[2020-07-17 08:47] LABS: Lactic Acid 1.2 mmol/L (0.5-2.2)
[2020-07-17 08:54] LABS: ALT (SGPT) 12 U/L (8-55); AST (SGOT) 18 U/L (5-34); Albumin 3.6 g/dL (3.4-4.8); Alkaline Phosphatase 48 U/L (40-110); Anion Gap 14 mmol/L (10-20); BUN (Urea Nitrogen) 8 mg/dL (9.8-20.1); Bilirubin, Total 0.3 mg/dL (0.2-1.2); Calc. Creatinine Clearance 68 mL/min (70-130); Carbon Dioxide 31 mmol/L (23-31); Chloride 97 mmol/L (98-107); Globulin 2.4 g/dL (2.4-3.5); Glucose 95 mg/dL (80-115); Sodium 138 mmol/L (136-145)
--- NOTE | 2020-07-17 09:21 | RAD ---
EXAM: 2 views of the abdomen HISTORY: Ileus COMPARISON: 07/10/2020 FINDINGS: 2 views of the abdomen shows air throughout the colon with air-fluid levels in the colon on upright examination. No dilated loops of small bowel are appreciated. No free air is seen on upright examination. No suspicious calcifications are seen. The patient has a right hip prosthesis. IMPRESSION: No evidence of bowel obstruction.
--- NOTE | 2020-07-17 11:02 | PDOC.HOSPP ---
- Subjective Encounter Date: 07/17/20 Encounter Time: 10:30 Subjective: Patient seen and examined. No new complaints. No overnight events - Objective Vital Signs & Weight: Vital Signs (12 hours) Temp Pulse Resp BP BP Pulse Ox 07/17/20 08:16 97 95/64 07/17/20 07:56 97.7 F 97 20 103/65 93 L 07/17/20 07:11 83 12 94 L 07/17/20 00:00 97.8 F Weight Admit Weight 119 lb 9.6 oz Weight 119 lb 9.6 oz I&O: 07/16/20 07/17/20 07/18/20 06:59 06:59 06:59 Intake Total 1900 600 Balance 1900 600 Result Diagrams: 07/17/20 08:05 07/17/20 08:05 Radiology Reviewed by me: Yes Hospitalist ROS - Review of Systems ENT: denies: ear pain, ear discharge, nose pain, nose discharge, nose congestion, mouth pain, mouth swelling, throat pain, throat swelling, other Respiratory: denies: cough, dry, shortness of breath, hemoptysis, SOB with excertion, pleuritic pain, sputum, wheezing, other Cardiovascular: denies: chest pain, palpitations, orthopnea, paroxysmal noc. dyspnea, edema, light headedness, other Gastrointestinal: denies: nausea, vomiting, abdominal pain, diarrhea, con stipation, melena, hematochezia, other Genitourinary: denies: dysuria, frequency, incontinence, hematuria, retention, other Musculoskeletal: denies: neck pain, shoulder pain, arm pain, back pain, hand pain, leg pain, foot pain, other - Medication Medications: Active Medications Generic Name Dose Route Start Last Admin Trade Name Freq PRN Reason Stop Dose Admin Acetaminophen 650 mg 07/15/20 08:25 07/16/20 00:54 Acetaminophen 325 Mg Tab PO 650 mg Q6H PRN Administration Pain Aspirin 81 mg 07/05/20 09:00 07/17/20 08:14 Aspirin Chewable 81 Mg Tab PO 81 mg DAILY SHANTELLE Administration Diltiazem HCl 120 mg 07/06/20 09:00 07/17/20 08:16 Diltiazem Cd 120 Mg Cap PO Not Given DAILY SHANTELLE Dronedarone 400 mg 07/05/20 08:00 12/17/20 08:14 Dronedarone Hcl 400 Mg Tab PO 400 mg BID-WM SHANTELLE Administration Ipratropium [place] 2.5 ml 07/05/20 06:30 07/17/20 07:11 Ipratropium [place] 2.5 Ml Neb NEB 2.5 ml TID-RT SHANTELLE Administration Lidocaine 1 patch 07/07/20 09:00 07/17/20 08:19 Lidocaine 5% Patch TD 1 patch DAILY SHANTELLE Administration Lorazepam 1 mg 07/16/20 17:22 07/17/20 09:30 Lorazepam 1 Mg Tab PO 1 mg Q8H PRN Administration Anxiety Miscellaneous Medication 1 each 07/07/20 21:00 07/16/20 20:46 Lidocaine Patch Removal 1 Each TOP Not Given 2100 SHANTELLE Mometasone Furoate 1 puff 07/06/20 18:30 07/16/20 17:50 Mometasone Furoate 120 Puff 220 Mcg INH Not Given 1830 SHANTELLE Ondansetron HCl 4 mg 07/07/20 22:04 07/10/20 08:52 Ondansetron Pf 4 Mg/2 Ml Vial IVP 4 mg Q6H PRN Administration Nausea/Vomiting Pantoprazole Sodium 40 mg 07/17/20 09:00 07/17/20 08:19 Pantoprazole 40 Mg Tab PO 40 mg DAILY SHANTELLE Administration Phenol 5 ml 07/11/20 22:56 07/12/20 04:02 Chloraseptic [place] 180 Ml Bottle PO 1 spray PRN PRN Administration Sore Throat Polyethylene Glycol 17 gm 07/05/20 17:00 07/16/20 14:00 Polyethylene Glycol 3350 17 Gm Packet PO 17 gm 1700 SHANTELLE Administration Saccharomyces Boulardii 250 mg 07/09/20 21:00 07/17/20 08:14 Saccharomyces Boulardii 250 Mg Cap PO 250 mg BID SHANTELLE Administration Simethicone 80 mg 07/05/20 04:37 07/09/20 02:12 Simethicone Chewable 80 Mg Tab PO 80 mg PCHS PRN Administration Gas Pain Vancomycin HCl 500 mg 07/09/20 21:00 07/17/20 08:19 Vancomycin Hcl 25 Mg/Ml Oral PER TUBE 500 mg 0300,0900,1500,2100 SHANTELLE Administration - Exam General Appearance: NAD, awake alert Eye: PERRL, anicteric sclera ENT: normocephalic atraumatic, no oropharyngeal lesions Neck: supple, symmetric, no JVD, no thyromegaly Heart: RRR, no murmur, no gallops, no rubs Respiratory: no wheezes, no rales, no ronchi Gastrointestinal: soft, non-tender, non-distended, normal bowel sounds Extremities: no cyanosis, no clubbing, no edema Skin: normal turgor, no lesions Neurological: no focal deficits Musculoskeletal: normal tone, normal strength Psychiatric: normal affect, normal behavior Hosp A/P (1) Bright red blood per rectum Code(s): K62.5 - HEMORRHAGE OF ANUS AND RECTUM Status: Acute (2) CHF (congestive heart failure) Code(s): I50.9 - HEART FAILURE, UNSPECIFIED Status: Chronic Qualifiers: Heart failure type: diastolic (3) Hypertension Code(s): I10 - ESSENTIAL (PRIMARY) HYPERTENSION Status: Chronic (4) Hx of atrial flutter Code(s): Z86.79 - PERSONAL HISTORY OF OTHER DISEASES OF THE CIRCULATORY SYSTEM Status: Acute (5) Anxiety Code(s): F41.9 - ANXIETY DISORDER, UNSPECIFIED Status: Chronic (6) COPD (chronic obstructive pulmonary disease) Status: Chronic (7) Constipation Code(s): K59.00 - CONSTIPATION, UNSPECIFIED Status: Chronic (8) Hypokalemia Code(s): E87.6 - HYPOKALEMIA Status: Resolved (9) Hyponatremia Code(s): E87.1 - HYPO-OSMOLALITY AND HYPONATREMIA Status: Resolved - Plan old records reviewed/req Today's laboratory parameters normal, x-ray abdomen is unremarkable, Patient education about constipation and treatment addressed today Patient is stable for discharge today See my discharge summary
[2020-07-17 11:46] VITALS: BP 110/68
== END 2020-07-17 11:26 | disposition home or self-care (01) | DRG 394 ==
LOC: T4-B 02:04
PROVIDERS: ADMIT Family Medicine; ATTEND Internal Medicine
PROC: 0DBL8ZX Excision of Transverse Colon, Via Natural or Artificial Opening Endoscopic, Diagnostic (ICD-10-PCS; principal; 2020-07-10)
PROC: 0D7N8ZZ Dilation of Sigmoid Colon, Via Natural or Artificial Opening Endoscopic (ICD-10-PCS; 2020-07-10)
DX: K55.9 Vascular disorder of intestine, unspecified (principal); K63.3 Ulcer of intestine; Z51.5 Encounter for palliative care; Z66 Do not resuscitate; I50.32 Chronic diastolic (congestive) heart failure; K56.7 Ileus, unspecified; E87.1 Hypo-osmolality and hyponatremia; J44.9 Chronic obstructive pulmonary disease, unspecified; I11.0 Hypertensive heart disease with heart failure; K59.00 Constipation, unspecified; F41.9 Anxiety disorder, unspecified; G89.29 Other chronic pain; I48.91 Unspecified atrial fibrillation; K63.89 Other specified diseases of intestine; E87.6 Hypokalemia; E83.39 Other disorders of phosphorus metabolism; E83.42 Hypomagnesemia; B18.2 Chronic viral hepatitis C; Z99.81 Dependence on supplemental oxygen; Z87.891 Personal history of nicotine dependence; Z86.718 Personal history of other venous thrombosis and embolism; Z90.710 Acquired absence of both cervix and uterus; Z88.1 Allergy status to other antibiotic agents; Z88.5 Allergy status to narcotic agent; Z88.8 Allergy status to other drugs, medicaments and biological substances; Z79.82 Long term (current) use of aspirin; Z79.891 Long term (current) use of opiate analgesic; Z79.899 Other long term (current) drug therapy
CPT/HCPCS: 36415; 36416; 74018; 74019; 74177; 80048; 80053; 83605; 83690; 83735; 83880; 84100; 85025; 86140; 86850; 86900; 86901; 87324; 87449; 88305; 90471; 90732; 93005; 93010; 94640; C9113; G0009; J0696; J1200; J2405; J2704; J3475; J3480; J3490; J7050; Q9967

== ENCOUNTER 2020-10-15 14:12 | Outpatient (CLI) | payer MEDICARE, OTHER | END 2020-10-15 14:13 | disposition home or self-care (01) | LOC: BICRAD 14:12 | PROVIDERS: ATTEND Internal Medicine Pulmonary Disease | DX: R06.00 Dyspnea, unspecified (principal); J98.4 Other disorders of lung | CPT/HCPCS: 71046 ==

== ENCOUNTER 2020-10-20 12:38 | Outpatient (CLI) | payer MEDICARE, OTHER ==
[2020-10-20] MEDS ORDERED: Iopamidol 370 76% 100 ML VIAL ONE (14:14)
== END 2020-10-20 12:39 | disposition home or self-care (01) ==
LOC: BICCT 12:38
PROVIDERS: ATTEND Internal Medicine Gastroenterology
DX: K55.9 Vascular disorder of intestine, unspecified (principal); K59.00 Constipation, unspecified; R68.81 Early satiety; R63.4 Abnormal weight loss; I70.0 Atherosclerosis of aorta; I70.8 Atherosclerosis of other arteries; K55.059 Acute (reversible) ischemia of intestine, part and extent unspecified; N28.89 Other specified disorders of kidney and ureter; J98.4 Other disorders of lung; S22.089A Unspecified fracture of T11-T12 vertebra, initial encounter for closed fracture
CPT/HCPCS: 74174; 82565; Q9967

== ENCOUNTER 2021-04-03 20:09 | Emergency (ER) | payer MEDICARE, OTHER ==
[~2021-04-03 20:09] MED LIST: Iopamidol 370 76% 100 ML VIAL ONE
[2021-04-03 21:59] LABS: #Eosinphils 0.2 thou/uL (0.0-0.7); #Lymphocytes 1.2 thou/uL (1.20-3.40); #Monocytes 0.7 thou/uL (0.11-0.59); %Basophils 0.1 % (0.0-1.0); %Eosinophils 3.2 % (0.0-10.0); %Lymphocytes 24.2 % (21.0-51.0); %Neutrophils 59.5 % (42.0-75.0); Hemoglobin 13.5 g/dL (12.0-16.0); Mean Corpuscular HGB CONC 34.1 g/dL (32.0-36.0); Mean Corpuscular Hemoglobin 31.8 pg (27.0-31.0); Mean Corpuscular Volume 93.3 fL (78.0-98.0); Mean Platelet Volume 8.5 fL (7.4-10.4); Platelet Count 215 thou/uL (130-400); RBC Distribution Width 11.8 % (11.5-14.5); Red Blood Cell (RBC) Count 4.24 mill/uL (4.20-5.40)
[2021-04-03] MEDS ORDERED: predniSONE 20 MG TAB ONE (22:21)
[2021-04-03 22:22] LABS: ALT (SGPT) 12 U/L (8-55); AST (SGOT) 16 U/L (5-34); Albumin 4.4 g/dL (3.4-4.8); Alkaline Phosphatase 58 U/L (40-110); Anion Gap 12 mmol/L (10-20); BUN (Urea Nitrogen) 11 mg/dL (9.8-20.1); Bilirubin, Total 0.3 mg/dL (0.2-1.2); Calc. Creatinine Clearance 0 mL/min (70-130); Calcium 9.4 mg/dL (7.8-10.44); Carbon Dioxide 34 mmol/L (23-31); Chloride 99 mmol/L (98-107); Globulin 2.6 g/dL (2.4-3.5); Glucose 130 mg/dL (80-115); Potassium 4.2 mmol/L (3.5-5.1); Sodium 141 mmol/L (136-145)
[2021-04-03] MEDS ORDERED: Albuterol 200 PUFF (6.7GM INHALER) ONE (22:38)
[2021-04-04] MEDS ORDERED: Acetaminophen 500 MG TAB ONE (01:55)
== END 2021-04-04 01:51 | disposition home or self-care (01) ==
LOC: ERS 20:09
DX: J44.1 Chronic obstructive pulmonary disease with (acute) exacerbation (principal); Z79.899 Other long term (current) drug therapy; Z79.82 Long term (current) use of aspirin; I10 Essential (primary) hypertension; Z87.891 Personal history of nicotine dependence
CPT/HCPCS: 36415; 71045; 71275; 80053; 84484; 85025; 93005; J7512; Q9967

== ENCOUNTER 2021-04-14 15:25 | Emergency (ER) | payer MEDICARE, OTHER ==
[~2021-04-14 15:25] MED LIST changes: -Iopamidol 370 76% 100 ML VIAL ONE; +Iopamidol 370 76% 50 ML VIAL FS ONE
[2021-04-14 16:16] LABS: #Eosinphils 0.3 thou/uL (0.0-0.7); #Monocytes 0.7 thou/uL (0.11-0.59); #Neutrophils 3.9 thou/uL (1.40-6.50); %Basophils 0.1 % (0.0-1.0); %Eosinophils 4.6 % (0.0-10.0); %Lymphocytes 16.5 % (21.0-51.0); %Neutrophils 66.9 % (42.0-75.0); Mean Corpuscular HGB CONC 34.7 g/dL (32.0-36.0); Mean Corpuscular Hemoglobin 32.1 pg (27.0-31.0); Mean Corpuscular Volume 92.4 fL (78.0-98.0); Mean Platelet Volume 7.6 fL (7.4-10.4); Platelet Count 215 thou/uL (130-400); RBC Distribution Width 11.9 % (11.5-14.5); Red Blood Cell (RBC) Count 4.38 mill/uL (4.20-5.40); White Blood Cell (WBC) Count 5.8 thou/uL (4.8-10.8)
[2021-04-14 16:40] LABS: ALT (SGPT) 12 U/L (8-55); AST (SGOT) 14 U/L (5-34); Alkaline Phosphatase 49 U/L (40-110); Anion Gap 12 mmol/L (10-20); BUN (Urea Nitrogen) 5 mg/dL (9.8-20.1); Bilirubin, Total 0.3 mg/dL (0.2-1.2); Calc. Creatinine Clearance 0 mL/min (70-130); Calcium 9.2 mg/dL (7.8-10.44); Carbon Dioxide 27 mmol/L (23-31); Chloride 97 mmol/L (98-107); Globulin 2.2 g/dL (2.4-3.5); Glucose 112 mg/dL (80-115); Lipase 36 U/L (8-78); Potassium 5.1 mmol/L (3.5-5.1); Protein, Total 6.2 g/dL (5.8-8.1); Sodium 131 mmol/L (136-145)
[2021-04-14] MEDS ORDERED: Fentanyl 100 MCG/2 ML VIAL ONE (16:51)
[2021-04-14] MEDS ORDERED: Famotidine/PF 20 mg/2ml Vial ONE (16:51)
[2021-04-14] MEDS ORDERED: Ondansetron PF 4 MG/2 ML Vial ONE (16:51)
[2021-04-14] MEDS ORDERED: Morphine 4 MG/ML VIAL ONE (17:35)
[2021-04-14 17:54] LABS: Bilirubin Negative (Negative); Blood, Urine Negative (Negative); Clarity Clear (Clear); Glucose, Urine (Dipstick) Normal (Negative); Ketone, Urine Negative (Negative); Leukocyte Negative Leu/uL (Negative); Nitrite Negative (Negative); Protein, Urine (Dipstick) Negative (Neg-Trace); Specific Gravity, Urine 1.002 (1.002-1.036); Urobilinogen Normal mg/dL (Less than 2); pH, Urine 6.5 (5.0-9.0)
[2021-04-14] MEDS ORDERED: HYDROcodone/Acetaminophen 5/325 mg Tablet ONE (20:24)
== END 2021-04-14 21:00 | disposition home or self-care (01) ==
LOC: ERS 15:25
DX: R10.9 Unspecified abdominal pain (principal); R11.2 Nausea with vomiting, unspecified; I10 Essential (primary) hypertension; J44.9 Chronic obstructive pulmonary disease, unspecified; Z87.891 Personal history of nicotine dependence
CPT/HCPCS: 36415; 74176; 80053; 81003; 83605; 83690; 84484; 85025; 93005; 96374; 96375; J2270; J2405; J3010; Q9967; S0028

== ENCOUNTER 2023-01-30 22:27 | Observation (INO) | payer MEDICARE, OTHER ==
[2023-01-31 00:25] VITALS: BMI 19.2
[2023-01-31 02:16] LABS: Amphetamine Not Detected (NotDetected); Barbiturates Screen Not Detected (NotDetected); Benzodiazepine Screen Detected (NotDetected); Cocaine Metabolite Screen Not Detected (NotDetected); Methadone Not Detected (NotDetected); Methamphetamine Not Detected (NotDetected); Opiate Screen Detected (NotDetected); Oxycodone Screen Not Detected (NotDetected); Phencyclidine (PCP) Not Detected (NotDetected); THC/Cannabinoid Screen Not Detected (NotDetected); Tricyclic Screen Not Detected (NotDetected)
[2023-01-31] MEDS ORDERED: Lactated Ringer's 1,000 ML IV SCH (03:00)
[2023-01-31] MEDS ORDERED: Methocarbamol 1 GM in Sodium Chloride 0.9% 100 ML IVPB SCH (03:00)
[2023-01-31] MEDS ORDERED: Methylnaltrexone 12 MG/0.6 ML VIAL SC SCH (03:00)
[2023-01-31 06:58] LABS: #Eosinphils 0.1 thou/uL (0.0-0.7); #Monocytes 0.4 thou/uL (0.11-0.59); #Neutrophils 2.3 thou/uL (1.40-6.50); %Basophils 0.6 % (0.0-1.0); %Eosinophils 2.8 % (0.0-10.0); %Neutrophils 65.3 % (42.0-75.0); Hemoglobin 11.9 g/dL (12.0-16.0); Mean Corpuscular HGB CONC 33.2 g/dL (32.0-36.0); Mean Corpuscular Hemoglobin 30.5 pg (27.0-31.0); Mean Corpuscular Volume 91.8 fl (78.0-98.0); Mean Platelet Volume 9.7 fL (7.4-10.4); Platelet Count 165 10x3/uL (130-400); RBC Distribution Width 13.3 % (11.5-14.5); White Blood Cell (WBC) Count 3.6 10x3/uL (4.8-10.8)
[2023-01-31 07:21] LABS: ALT (SGPT) 12 U/L (8-55); AST (SGOT) 17 U/L (5-34); Albumin 3.8 g/dL (3.4-4.8); Alkaline Phosphatase 42 U/L (40-110); Anion Gap 11 mmol/L (10-20); BUN (Urea Nitrogen) 5 mg/dL (9.8-20.1); Bilirubin, Total 0.3 mg/dL (0.2-1.2); Calc. Creatinine Clearance 70 mL/min (70-130); Calcium 8.6 mg/dL (7.8-10.44); Carbon Dioxide 26 mmol/L (23-31); Chloride 105 mmol/L (98-107); Estimated GFR 98; Globulin 2.1 g/dL (2.4-3.5); Glucose 93 mg/dL (80-115); Potassium 3.4 mmol/L (3.5-5.1); Protein, Total 5.9 g/dL (5.8-8.1); Sodium 139 mmol/L (136-145)
[2023-01-31 07:27] LABS: Acetaminophen Less than 10 mcg/mL (10.0-30.0); Alcohol Less than 10.0 mg/dL (Less than 10); Salicylate Less than 8.0 mg/dL (15.0-30.0)
[2023-01-31] MEDS ORDERED: Sucralfate 1 GM TAB PO SCH (07:30)
[2023-01-31] MEDS ORDERED: Dronedarone HCl 400 MG TAB PO SCH ×2 (08:00)
[2023-01-31] MEDS: Mometasone 200 MCG/Formoterol 5 MCG 120 PUFF INHALER INH SCH ×2 (08:05→18:51)
[2023-01-31] MEDS: Ipratropium Bromide 2.5 ml Neb NEB SCH ×3 (08:05→18:51)
[2023-01-31] MEDS ORDERED: Potassium Chloride 20 MEQ TAB PO SCH (08:45)
[2023-01-31] MEDS ORDERED: Gabapentin 400 MG CAP PO SCH (09:00)
[2023-01-31] MEDS ORDERED: Losartan 25 MG TAB PO SCH ×2 (09:00)
[2023-01-31] MEDS ORDERED: Saccharomyces boulardii 250 MG CAP PO SCH (09:00)
[2023-01-31] MEDS: Dronedarone HCl 400 MG TAB PO SCH ×2 (09:26→17:06)
[2023-01-31] MEDS: Saccharomyces boulardii 250 MG CAP PO SCH ×2 (09:26→21:07)
[2023-01-31] MEDS: Losartan 25 MG TAB PO SCH (09:26)
[2023-01-31] MEDS: Lidocaine 4% Patch TD SCH (09:27)
[2023-01-31] MEDS: Montelukast Sodium 10 mg Tablet PO SCH (09:27)
[2023-01-31] MEDS ORDERED: Acetaminophen 500 MG TAB PO SCH (10:15)
[2023-01-31] MEDS: Sucralfate 1 GM/10 ML UDCUP PO SCH ×4 (11:16→21:04)
[2023-01-31] MEDS: Ibuprofen 800 MG TAB PO SCH ×2 (13:05→21:59)
[2023-01-31] MEDS: Lorazepam 0.5 MG TAB PO PRN ×2 (13:05→21:11)
[2023-01-31] MEDS ORDERED: Acetaminophen 325 MG TAB PO PRN (16:21)
[2023-01-31] MEDS: Gabapentin 300 MG CAP PO SCH ×2 (17:06→21:04)
[2023-01-31] MEDS ORDERED: Pravastatin Sodium 40 MG TAB PO SCH (21:00)
[2023-01-31] MEDS ORDERED: Montelukast Sodium 10 mg Tablet PO SCH (21:00)
[2023-01-31] MEDS: Atorvastatin Calcium 10 MG TAB PO SCH (21:11)
[2023-01-31] MEDS: Transdermal Patch Removal TOP SCH (21:31)
[2023-02-01] MEDS ORDERED: Methylnaltrexone 12 MG/0.6 ML VIAL SC SCH (03:00)
[2023-02-01 06:19] LABS: #Eosinphils 0.1 thou/uL (0.0-0.7); #Monocytes 0.4 thou/uL (0.11-0.59); #Neutrophils 1.4 thou/uL (1.40-6.50); %Basophils 0.7 % (0.0-1.0); %Lymphocytes 29.1 % (21.0-51.0); %Monocytes 13.3 % (0.0-10.0); %Neutrophils 51.2 % (42.0-75.0); Hemoglobin 11.9 g/dL (12.0-16.0); Mean Corpuscular HGB CONC 32.2 g/dL (32.0-36.0); Mean Corpuscular Hemoglobin 30.2 pg (27.0-31.0); Mean Corpuscular Volume 93.9 fl (78.0-98.0); Mean Platelet Volume 9.9 fL (7.4-10.4); Platelet Count 159 10x3/uL (130-400); RBC Distribution Width 13.3 % (11.5-14.5); Red Blood Cell (RBC) Count 3.94 mill/uL (4.20-5.40); White Blood Cell (WBC) Count 2.8 10x3/uL (4.8-10.8)
[2023-02-01] MEDS: Ibuprofen 800 MG TAB PO SCH (06:50)
[2023-02-01 06:52] LABS: ALT (SGPT) 12 U/L (8-55); AST (SGOT) 16 U/L (5-34); Albumin 3.5 g/dL (3.4-4.8); Alkaline Phosphatase 40 U/L (40-110); Anion Gap 11 mmol/L (10-20); BUN (Urea Nitrogen) 4 mg/dL (9.8-20.1); Bilirubin, Total 0.4 mg/dL (0.2-1.2); Calc. Creatinine Clearance 66 mL/min (70-130); Calcium 8.4 mg/dL (7.8-10.44); Carbon Dioxide 25 mmol/L (23-31); Chloride 107 mmol/L (98-107); Estimated GFR 97; Glucose 91 mg/dL (80-115); Potassium 3.8 mmol/L (3.5-5.1); Protein, Total 5.5 g/dL (5.8-8.1); Sodium 139 mmol/L (136-145)
[2023-02-01] MEDS: Mometasone 200 MCG/Formoterol 5 MCG 120 PUFF INHALER INH SCH ×2 (07:00→18:41)
[2023-02-01] MEDS: Ipratropium Bromide 2.5 ml Neb NEB SCH ×3 (07:03→18:42)
[2023-02-01] MEDS ORDERED: Lactated Ringer's 1,000 ML IV SCH (07:15)
[2023-02-01] MEDS ORDERED: Ibuprofen 800 MG TAB PO PRN (07:56)
[2023-02-01] MEDS: Sucralfate 1 GM/10 ML UDCUP PO SCH ×4 (09:24→21:19)
[2023-02-01] MEDS: Gabapentin 300 MG CAP PO SCH ×3 (09:24→21:19)
[2023-02-01] MEDS: Saccharomyces boulardii 250 MG CAP PO SCH ×2 (09:24→21:19)
[2023-02-01] MEDS: Senokot S 8.6-50 MG TAB PO SCH ×2 (09:24→21:20)
[2023-02-01] MEDS: Acetaminophen 325 MG TAB PO SCH ×4 (09:25→21:20)
[2023-02-01] MEDS: Montelukast Sodium 10 mg Tablet PO SCH (09:25)
[2023-02-01] MEDS: Dronedarone HCl 400 MG TAB PO SCH ×3 (09:25→21:20)
[2023-02-01] MEDS: Losartan 25 MG TAB PO SCH (09:26)
[2023-02-01] MEDS: Polyethylene Glycol 3350 17 GM Packet PO SCH ×3 (09:26→21:20)
[2023-02-01] MEDS: Lidocaine 4% Patch TD SCH (09:34)
[2023-02-01] MEDS ORDERED: GoLYTELY 4,000 ml Bottle PO SCH (11:45)
[2023-02-01] MEDS: Lorazepam 0.5 MG TAB PO PRN ×2 (12:05→21:19)
[2023-02-01] MEDS: Atorvastatin Calcium 10 MG TAB PO SCH (21:19)
[2023-02-01] MEDS: Transdermal Patch Removal TOP SCH (21:21)
[2023-02-02] MEDS: Acetaminophen 325 MG TAB PO SCH ×3 (00:31→09:20)
[2023-02-02] MEDS: Mometasone 200 MCG/Formoterol 5 MCG 120 PUFF INHALER INH SCH (06:37)
[2023-02-02] MEDS: Ipratropium Bromide 2.5 ml Neb NEB SCH (06:42)
[2023-02-02 07:02] LABS: #Eosinphils 0.2 thou/uL (0.0-0.7); #Monocytes 0.5 thou/uL (0.11-0.59); #Neutrophils 4.6 thou/uL (1.40-6.50); %Basophils 0.3 % (0.0-1.0); %Eosinophils 2.8 % (0.0-10.0); %Lymphocytes 12.2 % (21.0-51.0); %Monocytes 7.9 % (0.0-10.0); %Neutrophils 76.5 % (42.0-75.0); Hemoglobin 11.3 g/dL (12.0-16.0); Mean Corpuscular HGB CONC 32.7 g/dL (32.0-36.0); Mean Corpuscular Volume 91.8 fl (78.0-98.0); Mean Platelet Volume 10.1 fL (7.4-10.4); Platelet Count 175 10x3/uL (130-400); RBC Distribution Width 13.2 % (11.5-14.5); Red Blood Cell (RBC) Count 3.77 mill/uL (4.20-5.40); White Blood Cell (WBC) Count 6.1 10x3/uL (4.8-10.8)
[2023-02-02 07:27] LABS: ALT (SGPT) 14 U/L (8-55); AST (SGOT) 22 U/L (5-34); Albumin 3.6 g/dL (3.4-4.8); Alkaline Phosphatase 42 U/L (40-110); Anion Gap 11 mmol/L (10-20); BUN (Urea Nitrogen) 7 mg/dL (9.8-20.1); Bilirubin, Total 0.4 mg/dL (0.2-1.2); Calc. Creatinine Clearance 61 mL/min (70-130); Calcium 8.9 mg/dL (7.8-10.44); Carbon Dioxide 30 mmol/L (23-31); Chloride 103 mmol/L (98-107); Estimated GFR 90; Glucose 99 mg/dL (80-115); Potassium 4.4 mmol/L (3.5-5.1); Protein, Total 5.6 g/dL (5.8-8.1); Sodium 140 mmol/L (136-145)
[2023-02-02 08:19] VITALS: BP 119/65; TEMP 97.8
[2023-02-02] MEDS: Gabapentin 300 MG CAP PO SCH (09:11)
[2023-02-02] MEDS: Senokot S 8.6-50 MG TAB PO SCH (09:12)
[2023-02-02] MEDS: Lidocaine 4% Patch TD SCH (09:12)
[2023-02-02] MEDS: Saccharomyces boulardii 250 MG CAP PO SCH (09:12)
[2023-02-02] MEDS: Montelukast Sodium 10 mg Tablet PO SCH (09:12)
[2023-02-02] MEDS: Losartan 25 MG TAB PO SCH (09:12)
[2023-02-02] MEDS: Polyethylene Glycol 3350 17 GM Packet PO SCH (09:13)
[2023-02-02] MEDS: Sucralfate 1 GM/10 ML UDCUP PO SCH ×2 (09:20→12:47)
[2023-02-02] MEDS: Dronedarone HCl 400 MG TAB PO SCH (09:21)
[2023-02-02] MEDS: Lorazepam 0.5 MG TAB PO PRN (09:37)
[2023-02-02] MEDS: (Linaclotide [Linzess] 145 MCG Capsule) PO SCH (12:47)
== END 2023-02-02 12:27 | disposition home or self-care (01) ==
LOC: T4-B 01-31 00:06
PROVIDERS: ADMIT Student in an Organized Health Care Education/Training Program; ATTEND Student in an Organized Health Care Education/Training Program
DX: M48.061 Spinal stenosis, lumbar region without neurogenic claudication (principal); M54.16 Radiculopathy, lumbar region; S39.012A Strain of muscle, fascia and tendon of lower back, initial encounter; T40.2X5A Adverse effect of other opioids, initial encounter; K59.03 Drug induced constipation; R10.9 Unspecified abdominal pain; R33.9 Retention of urine, unspecified; E87.1 Hypo-osmolality and hyponatremia; E86.0 Dehydration; D72.819 Decreased white blood cell count, unspecified; F41.9 Anxiety disorder, unspecified; I48.92 Unspecified atrial flutter; I10 Essential (primary) hypertension; J44.9 Chronic obstructive pulmonary disease, unspecified; J30.2 Other seasonal allergic rhinitis; G89.4 Chronic pain syndrome; Z88.6 Allergy status to analgesic agent; Z88.1 Allergy status to other antibiotic agents; Z88.0 Allergy status to penicillin; Z79.891 Long term (current) use of opiate analgesic; Z79.82 Long term (current) use of aspirin; Z79.899 Other long term (current) drug therapy; X58.XXXA Exposure to other specified factors, initial encounter
CPT/HCPCS: 72148; 80053 ×3; 80306; 80307; 83930; 83935; 84300; 85025 ×3; 94640 ×7; 96372 ×2; 96374; 97116 ×2; 97530; G0378 ×3; 36415; 51798; J1650; J2212; J2800; J3490; J7120

== ENCOUNTER 2024-05-11 17:40 | Inpatient (IN) | payer OTHER ==
[2024-05-11 20:12] VITALS: BMI 18.1
[2024-05-11] MEDS ORDERED: Ondansetron ODT 4 MG TAB PO PRN (20:35)
[2024-05-11] MEDS ORDERED: Ondansetron PF 4 MG/2 ML Vial IVP PRN (20:35)
[2024-05-11] MEDS ORDERED: Acetaminophen 650 MG Suppository PR PRN (20:35)
[2024-05-11] MEDS: Famotidine/PF 20 mg/2ml Vial SLOW IVP SCH (22:18)
[2024-05-11] MEDS: Famotidine 20 MG TAB PO SCH (22:19)
[2024-05-11 22:25] LABS: #Basophils Less than 0.03 10x3/uL (0.0-0.2); %Basophils 0.5 % (0.0-1.0); %Eosinophils 2.4 % (0.0-10.0); %Monocytes 9.9 % (0.0-10.0); %Neutrophils 60.7 % (42.0-75.0); Hematocrit 33.1 % (36.0-47.0); Hemoglobin 9.9 g/dL (12.0-16.0); Mean Corpuscular HGB CONC 29.9 g/dL (32.0-36.0); Mean Corpuscular Hemoglobin 26.7 pg (27.0-31.0); Mean Corpuscular Volume 89.2 fL (78.0-98.0); Mean Platelet Volume 9.6 fL (7.4-10.4); Platelet Count 203 10x3/uL (130-400); RBC Distribution Width 14.7 % (11.5-14.5); Red Blood Cell (RBC) Count 3.71 mill/uL (4.20-5.40)
[2024-05-11 23:02] LABS: ALT (SGPT) 11 U/L (8-55); AST (SGOT) 15 U/L (5-34); Albumin 3.4 g/dL (3.4-4.8); Alkaline Phosphatase 63 U/L (40-110); Anion Gap 12 mmol/L (10-20); BUN (Urea Nitrogen) 4 mg/dL (9.8-20.1); Bilirubin, Total 0.3 mg/dL (0.2-1.2); Calc. Creatinine Clearance 67 mL/min (70-130); Calcium 8.3 mg/dL (7.8-10.44); Carbon Dioxide 26 mmol/L (23-31); Chloride 104 mmol/L (98-107); Estimated GFR 98; Globulin 2.6 g/dL (2.4-3.5); Glucose 89 mg/dL (80-115); Sodium 138 mmol/L (136-145)
[2024-05-12] MEDS: Acetaminophen 325 MG TAB PO SCH (01:17)
[2024-05-12] MEDS: Ipratropium/Albuterol 3 ML NEB NEB PRN (01:29)
[2024-05-12] MEDS: Melatonin 3 MG TAB PO SCH (02:55)
[2024-05-12 04:02] LABS: #Basophils Less than 0.03 10x3/uL (0.0-0.2); %Eosinophils 2.3 % (0.0-10.0); %Lymphocytes 23.2 % (21.0-51.0); %Monocytes 10.8 % (0.0-10.0); Hematocrit 31.3 % (36.0-47.0); Hemoglobin 9.6 g/dL (12.0-16.0); Mean Corpuscular HGB CONC 30.7 g/dL (32.0-36.0); Mean Corpuscular Hemoglobin 26.2 pg (27.0-31.0); Mean Corpuscular Volume 85.3 fL (78.0-98.0); Mean Platelet Volume 9.9 fL (7.4-10.4); Platelet Count 189 10x3/uL (130-400); RBC Distribution Width 14.6 % (11.5-14.5); Red Blood Cell (RBC) Count 3.67 mill/uL (4.20-5.40)
[2024-05-12 04:15] LABS: Anion Gap 11 mmol/L (10-20); BUN (Urea Nitrogen) 4 mg/dL (9.8-20.1); Calc. Creatinine Clearance 71 mL/min (70-130); Calcium 8.2 mg/dL (7.8-10.44); Carbon Dioxide 29 mmol/L (23-31); Chloride 102 mmol/L (98-107); Estimated GFR 99; Glucose 95 mg/dL (80-115); Potassium 3.5 mmol/L (3.5-5.1); Sodium 138 mmol/L (136-145)
[2024-05-12] MEDS: Mometasone 200 MCG/Formoterol 5 MCG 120 PUFF INHALER INH SCH (06:54)
[2024-05-12] MEDS ORDERED: Saccharomyces boulardii 250 MG CAP PO SCH (09:00)
[2024-05-12 09:01] VITALS: BMI 18.1
[2024-05-12] MEDS: Montelukast Sodium 10 mg Tablet PO SCH (09:05)
[2024-05-12] MEDS: Losartan 25 MG TAB PO SCH (09:05)
[2024-05-12] MEDS: Dronedarone HCl 400 MG TAB PO SCH (09:06)
[2024-05-12] MEDS: Gabapentin 400 MG CAP PO SCH (09:06)
[2024-05-12] MEDS: dilTIAZem CD 180 MG CAP PO SCH (15:37)
[2024-05-12] MEDS: Lorazepam 1 MG TAB PO PRN (16:27)
[2024-05-12] MEDS: Sodium Chloride 0.9% 1,000 ML IV SCH (18:15)
[2024-05-12] MEDS: Atorvastatin Calcium 10 MG TAB PO SCH (20:52)
[2024-05-13 04:33] LABS: #Basophils 0.03 10x3/uL (0.0-0.2); %Basophils 0.9 % (0.0-1.0); %Eosinophils 2.2 % (0.0-10.0); %Lymphocytes 20.4 % (21.0-51.0); %Monocytes 9.3 % (0.0-10.0); %Neutrophils 66.9 % (42.0-75.0); Hematocrit 33.4 % (36.0-47.0); Hemoglobin 10.1 g/dL (12.0-16.0); Mean Corpuscular HGB CONC 30.2 g/dL (32.0-36.0); Mean Corpuscular Hemoglobin 26.3 pg (27.0-31.0); Mean Platelet Volume 9.9 fL (7.4-10.4); Platelet Count 204 10x3/uL (130-400); RBC Distribution Width 14.3 % (11.5-14.5); Red Blood Cell (RBC) Count 3.84 mill/uL (4.20-5.40)
[2024-05-13 04:52] LABS: ALT (SGPT) 10 U/L (8-55); AST (SGOT) 17 U/L (5-34); Albumin 3.2 g/dL (3.4-4.8); Alkaline Phosphatase 67 U/L (40-110); Anion Gap 15 mmol/L (10-20); BUN (Urea Nitrogen) 10 mg/dL (9.8-20.1); Bilirubin, Total 0.5 mg/dL (0.2-1.2); Calc. Creatinine Clearance 63 mL/min (70-130); Calcium 8.1 mg/dL (7.8-10.44); Carbon Dioxide 23 mmol/L (23-31); Chloride 101 mmol/L (98-107); Estimated GFR 97; Globulin 2.7 g/dL (2.4-3.5); Glucose 66 mg/dL (80-115); Magnesium 2.1 mg/dL (1.6-2.6); Potassium 3.8 mmol/L (3.5-5.1); Protein, Total 5.9 g/dL (5.8-8.1); Sodium 135 mmol/L (136-145)
[2024-05-13] MEDS: Dextrose 50% Abboject 50 ML SYRINGE SLOW IVP PRN (07:40)
[2024-05-13] MEDS ORDERED: Midazolam HCl 2 mg/2 ml Vial ONE (11:16)
[2024-05-13] MEDS ORDERED: PROPOFOL 20 ML ONE (11:17)
[2024-05-13] MEDS ORDERED: Ketamine In 0.9 % NaCl 50 MG/5 ML SYRINGE ONE (11:17)
[2024-05-13] MEDS: Pantoprazole DR 40 MG TAB PO SCH (12:36)
[2024-05-13] MEDS ORDERED: Polyethylene Glycol 3350 17 GM Packet PO SCH (13:00)
[2024-05-13] MEDS: Polyethylene Glycol 3350 17 GM Packet PO SCH ×2 (13:00→20:48)
[2024-05-13] MEDS: Melatonin 3 MG TAB PO PRN (20:46)
[2024-05-13] MEDS: Dronedarone HCl 400 MG TAB PO SCH (20:46)
[2024-05-14 05:31] LABS: #Basophils Less than 0.03 10x3/uL (0.0-0.2); %Basophils 0.3 % (0.0-1.0); %Eosinophils 2.8 % (0.0-10.0); %Lymphocytes 22.6 % (21.0-51.0); %Monocytes 12.3 % (0.0-10.0); %Neutrophils 61.7 % (42.0-75.0); Hematocrit 31.6 % (36.0-47.0); Hemoglobin 9.8 g/dL (12.0-16.0); Mean Corpuscular Hemoglobin 26.2 pg (27.0-31.0); Mean Corpuscular Volume 84.5 fL (78.0-98.0); Mean Platelet Volume 9.9 fL (7.4-10.4); Platelet Count 216 10x3/uL (130-400); RBC Distribution Width 14.6 % (11.5-14.5); Red Blood Cell (RBC) Count 3.74 mill/uL (4.20-5.40)
[2024-05-14 05:40] LABS: Anion Gap 9 mmol/L (10-20); BUN (Urea Nitrogen) 10 mg/dL (9.8-20.1); Calc. Creatinine Clearance 62 mL/min (70-130); Calcium 8.7 mg/dL (7.8-10.44); Carbon Dioxide 31 mmol/L (23-31); Chloride 104 mmol/L (98-107); Estimated GFR 96; Glucose 133 mg/dL (80-115); Potassium 3.6 mmol/L (3.5-5.1); Sodium 140 mmol/L (136-145)
[2024-05-14 12:31] VITALS: TEMP 97.8
[2024-05-14 17:22] VITALS: BP 107/64
== END 2024-05-14 17:30 | disposition home or self-care (01) | DRG 394 ==
LOC: 2SE 18:45 → OBSVTOIN 05-12 08:44
PROVIDERS: ADMIT Internal Medicine; ATTEND Student in an Organized Health Care Education/Training Program
PROC: 0DJD8ZZ Inspection of Lower Intestinal Tract, Via Natural or Artificial Opening Endoscopic (ICD-10-PCS; principal; 2024-05-13)
DX: K63.89 Other specified diseases of intestine (principal); J96.10 Chronic respiratory failure, unspecified whether with hypoxia or hypercapnia; Z68.1 Body mass index [BMI] 19.9 or less, adult; K56.609 Unspecified intestinal obstruction, unspecified as to partial versus complete obstruction; F41.9 Anxiety disorder, unspecified; E78.5 Hyperlipidemia, unspecified; R63.6 Underweight; J44.9 Chronic obstructive pulmonary disease, unspecified; K64.4 Residual hemorrhoidal skin tags; K64.8 Other hemorrhoids; I10 Essential (primary) hypertension; K57.30 Diverticulosis of large intestine without perforation or abscess without bleeding; I48.91 Unspecified atrial fibrillation; Z90.710 Acquired absence of both cervix and uterus; Z88.8 Allergy status to other drugs, medicaments and biological substances; Z88.0 Allergy status to penicillin; Z88.1 Allergy status to other antibiotic agents; Z98.890 Other specified postprocedural states; Z99.81 Dependence on supplemental oxygen
CPT/HCPCS: 36415; 36416; 74018; 74177; 80048; 80053; 83690; 83735; 84145; 85025; 85610; 94640; 94664; 96374; 96375; 96376; J2250; J2272; J2405; J2704; J3490; J7030; J7620; J7999; Q9967

== ENCOUNTER 2024-09-27 10:13 | Inpatient (IN) | payer OTHER ==
[2024-09-27] MEDS ORDERED: Dexamethasone 10 MG/ML VIAL ONE (10:35)
[2024-09-27] MEDS ORDERED: Ipratropium/Albuterol 3 ML NEB ONE ×2 (10:35→16:48)
[2024-09-27 10:43] LABS: #Basophils Less than 0.03 10x3/uL (0.0-0.2); %Basophils 0.2 % (0.0-1.0); %Eosinophils 0.8 % (0.0-10.0); %Lymphocytes 12.9 % (21.0-51.0); %Monocytes 10.9 % (0.0-10.0); %Neutrophils 74.6 % (42.0-75.0); Hematocrit 30.6 % (36.0-47.0); Hemoglobin 9.1 g/dL (12.0-16.0); Mean Corpuscular HGB CONC 29.7 g/dL (32.0-36.0); Mean Corpuscular Hemoglobin 25.3 pg (27.0-31.0); Mean Corpuscular Volume 85.2 fL (78.0-98.0); Mean Platelet Volume 9.9 fL (7.4-10.4); Platelet Count 240 10x3/uL (130-400); RBC Distribution Width 15.7 % (11.5-14.5); Red Blood Cell (RBC) Count 3.59 mill/uL (4.20-5.40)
[2024-09-27 11:01] LABS: ALT (SGPT) 16 U/L (Less than 34); AST (SGOT) 46 U/L (11-34); Albumin 4.1 g/dL (3.1-4.5); Alkaline Phosphatase 52 U/L (40-110); Anion Gap 13 mmol/L (10-20); BUN (Urea Nitrogen) 5 mg/dL (9.8-20.1); Bilirubin, Total 0.2 mg/dL (0.3-1.2); Calc. Creatinine Clearance 0 mL/min (70-130); Calcium 8.8 mg/dL (7.8-10.44); Carbon Dioxide 34 mmol/L (23-31); Chloride 96 mmol/L (98-107); Estimated GFR 101; Globulin 2.9 g/dL (2.4-3.5); Glucose 132 mg/dL (80-115); Sodium 139 mmol/L (136-145)
[2024-09-27] MEDS ORDERED: Morphine 4 MG/ML VIAL ONE (11:04)
[2024-09-27] MEDS ORDERED: Ondansetron PF 4 MG/2 ML Vial ONE (11:04)
[2024-09-27 11:05] LABS: Troponin I Less than 0.010 ng/mL (< 0.028)
[2024-09-27] MEDS ORDERED: Ondansetron PF 4 MG/2 ML Vial IVP PRN (11:56)
[2024-09-27] MEDS ORDERED: Calcium Carbonate 500 MG ChewTAB PO PRN (11:56)
[2024-09-27] MEDS ORDERED: Acetaminophen 500 MG TAB ONE (12:15)
[2024-09-27] MEDS ORDERED: Furosemide 40 MG (4 mL) VIAL ONE (12:15)
[2024-09-27] MEDS ORDERED: Albuterol 2.5 MG (3 mL) NEB NEB PRN (13:00)
[2024-09-27] MEDS ORDERED: Gabapentin 400 MG CAP ONE (15:09)
[2024-09-27] MEDS: Gabapentin 400 MG CAP PO SCH (15:35)
[2024-09-27] MEDS ORDERED: Furosemide 40 MG (4 mL) VIAL SLOW IVP SCH (16:00)
[2024-09-27] MEDS: Ipratropium/Albuterol 3 ML NEB NEB SCH (16:52)
[2024-09-27] MEDS: dilTIAZem CD 180 MG CAP PO SCH (16:58)
[2024-09-27 18:23] VITALS: BMI 18.0
[2024-09-27] MEDS: Dronedarone HCl 400 MG TAB PO SCH (18:54)
[2024-09-27] MEDS: Mometasone 200 MCG/Formoterol 5 MCG 120 PUFF INHALER INH SCH (19:46)
[2024-09-27] MEDS: Doxycycline 100 MG CAP PO SCH (21:16)
[2024-09-27] MEDS: HYDROcodone/Acetaminophen 10/325 mg Tablet PO PRN (21:16)
[2024-09-27] MEDS: Atorvastatin Calcium 10 MG TAB PO SCH (21:17)
[2024-09-28] MEDS: Lorazepam 1 MG TAB PO PRN (02:49)
[2024-09-28 03:43] LABS: Bacteria/HPF None Seen HPF (None Seen); Bilirubin Negative (Negative); Blood, Urine Negative (Negative); CAUTI Indications for Culture Pelvic or flank pain; Clarity Clear (Clear); Glucose, Urine (Dipstick) Normal (Negative); Ketone, Urine Negative (Negative); Leukocyte Negative Leu/uL (Negative); Nitrite Negative (Negative); Protein, Urine (Dipstick) Negative (Neg-Trace); RBC/HPF 0-3 HPF (0-3); Specific Gravity, Urine 1.006 (1.002-1.036); Squamous Epithelial 0-3 HPF (0-3); Urobilinogen Normal mg/dL (Less than 2); WBC/HPF None Seen HPF (0-3); pH, Urine 7.5 (5.0-9.0)
[2024-09-28 03:48] LABS: Urine Culture Reflex No No
[2024-09-28 04:27] LABS: #Basophils Less than 0.03 10x3/uL (0.0-0.2); #Eosinophils Less than 0.03 10x3/uL (0.0-0.7); %Lymphocytes 7.8 % (21.0-51.0); %Monocytes 7.3 % (0.0-10.0); %Neutrophils 84.4 % (42.0-75.0); Hemoglobin 8.3 g/dL (12.0-16.0); Mean Corpuscular HGB CONC 29.6 g/dL (32.0-36.0); Mean Corpuscular Volume 84.3 fL (78.0-98.0); Mean Platelet Volume 10.4 fL (7.4-10.4); Platelet Count 291 10x3/uL (130-400); RBC Distribution Width 15.9 % (11.5-14.5); Red Blood Cell (RBC) Count 3.32 mill/uL (4.20-5.40)
[2024-09-28 04:44] LABS: ALT (SGPT) 12 U/L (Less than 34); AST (SGOT) 23 U/L (11-34); Albumin 3.6 g/dL (3.1-4.5); Alkaline Phosphatase 45 U/L (40-110); Anion Gap 13 mmol/L (10-20); BUN (Urea Nitrogen) 8 mg/dL (9.8-20.1); Bilirubin, Total 0.2 mg/dL (0.3-1.2); Calc. Creatinine Clearance 72 mL/min (70-130); Calcium 8.5 mg/dL (7.8-10.44); Carbon Dioxide 35 mmol/L (23-31); Chloride 91 mmol/L (98-107); Estimated GFR 100; Globulin 2.6 g/dL (2.4-3.5); Glucose 131 mg/dL (80-115); Magnesium 1.7 mg/dL (1.6-2.6); Potassium 3.9 mmol/L (3.5-5.1); Protein, Total 6.2 g/dL (5.8-8.1); Sodium 135 mmol/L (136-145)
[2024-09-28] MEDS ORDERED: Linaclotide [Linzess] 290 MCG Capsule PO SCH (07:30)
[2024-09-28] MEDS: Acetaminophen 325 MG TAB PO PRN (09:20)
[2024-09-28] MEDS: Enoxaparin 40 MG (0.4 mL) SYRINGE SC SCH (09:20)
[2024-09-28] MEDS: Aspirin Chewable 81 MG TAB PO SCH (09:21)
[2024-09-28] MEDS: Montelukast Sodium 10 mg Tablet PO SCH (09:21)
[2024-09-28] MEDS: Pantoprazole 40 MG DR.TAB PO SCH (09:21)
[2024-09-28] MEDS: Losartan 25 MG TAB PO SCH (09:21)
[2024-09-28] MEDS ORDERED: Lorazepam 1 MG TAB PO PRN (09:25)
[2024-09-28] MEDS: predniSONE 20 MG TAB PO SCH (11:28)
[2024-09-28] MEDS: Senokot S 8.6-50 MG TAB PO PRN (17:35)
[2024-09-28] MEDS ORDERED: Bisacodyl 10 MG SUPP PR PRN (20:12)
[2024-09-28] MEDS: Bisacodyl 5 MG TAB PO PRN (21:00)
[2024-09-29 07:50] VITALS: BP 113/63; TEMP 97.8
[2024-09-29] MEDS: predniSONE 20 MG TAB PO SCH (07:55)
== END 2024-09-29 12:20 | disposition home or self-care (01) | DRG 191 ==
LOC: ERS 10:13 → SUATTDRO 10:13 → ERHOLD 11:55 → 2NO 17:28 → T4-B 09-28 17:14
PROVIDERS: ADMIT Internal Medicine; ATTEND Student in an Organized Health Care Education/Training Program
DX: J44.1 Chronic obstructive pulmonary disease with (acute) exacerbation (principal); I50.42 Chronic combined systolic (congestive) and diastolic (congestive) heart failure; J96.11 Chronic respiratory failure with hypoxia; I11.0 Hypertensive heart disease with heart failure; F39 Unspecified mood [affective] disorder; G89.29 Other chronic pain; Z66 Do not resuscitate; E78.5 Hyperlipidemia, unspecified; I48.91 Unspecified atrial fibrillation; D64.9 Anemia, unspecified; F41.9 Anxiety disorder, unspecified; K59.00 Constipation, unspecified; Z99.81 Dependence on supplemental oxygen; Z88.0 Allergy status to penicillin; Z88.1 Allergy status to other antibiotic agents; Z88.5 Allergy status to narcotic agent; Z90.89 Acquired absence of other organs; Z90.710 Acquired absence of both cervix and uterus; Z79.82 Long term (current) use of aspirin; Z79.899 Other long term (current) drug therapy
CPT/HCPCS: 36415; 71045; 80053; 81001; 83605; 83735; 83880; 84484; 85025; 87428; 93005; 94760; 96374; 96375; J1100; J1650; J1940; J2270; J2405; J7512; J7620